=== PATIENT | female | born 1995 | race Caucasian/White ===

== ENCOUNTER 2020-10-27 13:59 | Outpatient (REF) | payer OTHER, SELFPAY ==
--- NOTE | 2020-10-27 14:08 | XR_ITS ---
EXAMINATION: BILATERAL SHOULDER AND LEFT SCAPULA X-RAYS CLINICAL INFORMATION: Bilateral shoulder pain COMPARISON: None TECHNIQUE: 4 views of the left shoulder and scapula and 4 views of the right shoulder FINDINGS: Left shoulder and scapula: Bone alignment is normal. No fracture or dislocation is seen. The joint spaces are normal. Soft tissues are normal. Right shoulder: Bone alignment is normal. No fracture or dislocation is seen. The joint spaces are normal. Soft tissues are normal. XR/XR shoulder LT min 2V IMPRESSION: Normal bilateral shoulder and left scapula exam.
--- NOTE | 2020-10-27 14:08 | XR_ITS ---
EXAMINATION: BILATERAL SHOULDER AND LEFT SCAPULA X-RAYS CLINICAL INFORMATION: Bilateral shoulder pain COMPARISON: None TECHNIQUE: 4 views of the left shoulder and scapula and 4 views of the right shoulder FINDINGS: Left shoulder and scapula: Bone alignment is normal. No fracture or dislocation is seen. The joint spaces are normal. Soft tissues are normal. Right shoulder: Bone alignment is normal. No fracture or dislocation is seen. The joint spaces are normal. Soft tissues are normal. XR/XR shoulder RT min 2V IMPRESSION: Normal bilateral shoulder and left scapula exam.
--- NOTE | 2020-10-27 14:08 | XR_ITS ---
EXAMINATION: BILATERAL SHOULDER AND LEFT SCAPULA X-RAYS CLINICAL INFORMATION: Bilateral shoulder pain COMPARISON: None TECHNIQUE: 4 views of the left shoulder and scapula and 4 views of the right shoulder FINDINGS: Left shoulder and scapula: Bone alignment is normal. No fracture or dislocation is seen. The joint spaces are normal. Soft tissues are normal. Right shoulder: Bone alignment is normal. No fracture or dislocation is seen. The joint spaces are normal. Soft tissues are normal. XR/XR scapula LT IMPRESSION: Normal bilateral shoulder and left scapula exam.
== END 2020-10-27 14:00 | disposition home or self-care (01) ==
LOC: HO.XRAY 13:59
PROVIDERS: Absent Provider Nurse Practitioner Family; PCP Internal Medicine; Visit Provider Internal Medicine
DX: M89.8X1 Other specified disorders of bone, shoulder (principal); M25.512 Pain in left shoulder; M25.511 Pain in right shoulder
CPT/HCPCS: 73010; 73030

== ENCOUNTER 2020-11-03 09:53 | Outpatient (REF) | payer OTHER, SELFPAY ==
[2020-11-03 10:35] LABS: MANUAL DIFF FLAG NO
[2020-11-03 10:38] LABS: Basophils Percent Auto 0.6 % (0-2); Eosinophils Absolute Auto 0.2 X10*3/uL (0.0-0.4); Hematocrit 38.4 % (37-47); Hemoglobin 13.1 g/dl (12.0-16.0); Imm Gran Abs Auto 0.02 X10*3/uL (0.00-0.03); Imm Gran Pct Auto 0.4 % (0.0-0.4); Lymphocytes Percent Auto 38.2 % (20-40); Mean Corpuscular HGB Conc 34.1 g/dl (31.0-35.0); Mean Corpuscular Hemoglobin 30.3 pg (27.0-33.0); Mean Corpuscular Volume 88.9 fL (80-98); Mean Platelet Volume 9.4 fL (9.4-12.3); Monocytes Absolute Auto 0.5 X10*3/uL (0.1-1.2); Monocytes Percent Auto 8.6 % (2-11); Neutrophils Absolute Auto 2.6 X10*3/uL (2.0-8.3); Neutrophils Percent Auto 49.2 % (45-73); Platelet Count 307 X10*3/uL (160-400); Red Blood Count 4.32 X10*6/uL (4.20-5.50); Red Cell Distribution Width 12.2 % (11.0-16.0); White Blood Count 5.3 X10*3/uL (4.8-10.8)
[2020-11-03 11:08] LABS: Anion Gap 11 (12-20); Blood Urea Nitrogen 14 mg/dL (9-16); Calcium 8.8 mg/dL (8.4-10.2); Carbon Dioxide 27 mmol/L (22-29); Chloride 104 mmol/L (96-108); Estimated Glomerular Filt Rate > 60; Glucose Fasting 93 mg/dL (60-99); Potassium 4.1 mmol/L (3.3-5.1); Rheumatoid Factor < 15.0 IU/mL (<15.0); Sodium 138 mmol/L (135-145)
== END 2020-11-03 09:54 | disposition home or self-care (01) ==
LOC: HO.LAB 09:53
PROVIDERS: Visit Provider Nurse Practitioner Family
DX: M25.511 Pain in right shoulder (principal)
CPT/HCPCS: 36415; 80048; 85025; 86431

== ENCOUNTER 2020-11-10 15:06 | Emergency (ER) | payer OTHER, SELFPAY | END 2020-11-10 21:34 | disposition left against medical advice (07) | PROVIDERS: Emergency Provider Emergency Medicine; PCP Internal Medicine | DX: R42 Dizziness and giddiness (principal) ==

== ENCOUNTER → 2020-11-12 12:40 | Outpatient (BNVA) | payer OTHER, SELFPAY | PROVIDERS: PCP Internal Medicine; Visit Provider Physician Assistant | DX: M75.51 Bursitis of right shoulder (principal) | CPT/HCPCS: 99202 ==

== ENCOUNTER 2020-11-13 23:00 | Emergency (ER) | payer OTHER, SELFPAY ==
[2020-11-14 01:03] VITALS: BP 129/80; PULSE 90; RESP 16; TEMP 36.7; O2SAT 100; BMI 38.2
[2020-11-14 01:07] VITALS: BP 125/68; PULSE 70
[2020-11-14 01:08] VITALS: BP 129/80; BP 129/83; PULSE 78; PULSE 97
--- NOTE | 2020-11-14 01:17 | ECG_ITS ---
Test Reason : DIZZINESS Blood Pressure : / mmHG Vent. Rate : 069 BPM Atrial Rate : 069 BPM P-R Int : 154 ms QRS Dur : 094 ms QT Int : 390 ms P-R-T Axes : 034 064 046 degrees QTc Int : 417 ms Normal sinus rhythm Incomplete right bundle branch block Borderline ECG When compared with ECG of 16-AUG-2019 19:06, No significant change was found Referred By: Toña Torres Electronically Signed By:Lazarus Rico
[2020-11-14 01:20] VITALS: BP 123/80; PULSE 70
--- NOTE | 2020-11-14 01:26 | ED_ITS ---
HPI - General Adult General Chief complaint: Dizziness Stated complaint: dizzyness Time Seen by Provider: 11/14/20 01:08 Source: patient Mode of arrival: ambulatory Limitations: no limitations History of Present Illness HPI narrative: Patient comes to emergency room complaining of dizziness. Patient states it has been constant for the last 2 weeks. When asked what dizziness means to the patient, she states that she is unable to explain. Patient denies lightheadedness, denies loss of balance, denies headache, denies feeling faint, denies unsteadiness, no weakness, no palpitations, no shortness of breath. Patient states that this moment she feels dizzy, but again states that she is unable to explain what she means. Patient was able to walk to her room unassisted with steady balance Related Data Home Medications Medication Instructions Recorded Confirmed albuterol sulfate mg INHALATION PRN 09/30/20 albuterol sulfate 90 mcg/actuation INHALATION 09/30/20 aerosol inhaler Previous Rx's Medication Instructions Recorded cyclobenzaprine 10 mg tablet 10 mg PO BEDTIME 30 Days #30 tab 09/30/20 ibuprofen 800 mg tablet 800 mg PO Q8H PRN 15 Days #30 tab 09/30/20 lidocaine 5 % topical patch 1 patch TOPICAL DAILY 7 Days #1 ea 09/30/20 omeprazole 20 mg capsule,delayed 20 mg PO DAILY 30 Days #30 cap 09/30/20 release triamcinolone acetonide 0.5 % 1 appl TOPICAL DAILY 30 Days #15 g 09/30/20 topical cream meclizine 25 mg tablet 25 mg PO BID PRN 30 Days #60 tab 10/27/20 meclizine 25 mg PO TID PRN #14 tab 11/14/20 Allergies Allergy/AdvReac Type Severity Reaction Status Date / Time No Known Allergies Allergy Verified 11/12/20 12:47 Review of Systems Review of Systems: Constitutional : No Weight loss, No Fever, No Chills, No Night Sweats, No Fatigue, No Malaise ENT/Mouth : No Hearing loss, No Ear Pain, No Nasal Congestion, No Sinus Pain, No Hoarseness, No sore throat, No Rhinorrhea, No Swallowing Difficulty Eyes: No Eye Pain, No Swelling, No Redness, No Foreign Body, No Discharge, No Vision Changes Cardiovascular : No Chest Pain, No SOB, No Dyspnea on Exertion, No Orthopnea, No Edema, No Palpitations Respiratory : No Cough, No Sputum, No Wheezing, No Smoke Exposure, No Dyspnea Gastrointestinal : No Nausea, No Vomiting, No Diarrhea, No Constipation, No abdominal Pain, No Hematochezia, No Melena Genitourinary : no irregular bleeding, No Dysuria, No Urinary Frequency, No Hematuria, No Urinary Incontinence, No Urgency, No Flank Pain, No Urinary Flow Changes, No Hesitancy Musculoskeletal : No joint pain, No Myalgias, No Joint Swelling Skin : No Skin Lesions, No rash Neuro : No Weakness, No Numbness, No Paresthesias, No Loss of Consciousness, c omplaining of Dizziness, No Headache Psych : No Anxiety/Panic, No Depression, No SI/HI/AH/VH, No Social Issues, Heme/Lymph: No Bruising, No Bleeding,No Lymphadenopathy Endocrine : No Polyuria, No Polydipsia, No Temperature Intolerance [facility] Past Medical History Medical History Left shoulder pain Pain of left scapula Shoulder pain, right Surgical History History of laparoscopic cholecystectomy History of tonsillectomy Family History Family History Father No problems noted. Mother No problems noted. Paternal Grandmother Chronic mental illness Maternal Grandmother Diabetes Hypertension Family/Other FH: mental illness Social History Social History (Updated 11/12/20 @ 12:54 by ASHLEY Baird) Alcohol intake: current Alcohol intake frequency: holidays/special occasions only Alcohol type: beer Smoking Status: Never smoker Tobacco Type: Cigar and Cigarette Use of substances other than those prescribed or required for medical reasons: No Advance Directives: No Advance Directives Information Provided: No Current occupational status: employed Current occupation: [employer]. Physical Exam Vital Signs: Vital Signs: Last Vital Signs Temp 97.8 F 11/14/20 02:54 Pulse 73 11/14/20 02:54 Resp 18 11/14/20 02:54 BP 119/65 11/14/20 02:54 Pulse Ox 100 11/14/20 02:54 Body Mass Index 38.2 Appearance: Alert. Oriented X3. No acute distress. Eyes: Pupils equal, round and reactive to light. ENT: Pharynx normal. Neck: Normal inspection. Neck supple. No lymph nodes noted. No crepitus CVS: Normal heart rate and rhythm. Pulses normal. Normal S1 and S2 Respiratory: No respiratory distress. Breath sounds normal. No Wheezing. No rales Abdomen: Soft and nontender. No rigidity. No distention. good BS x4 Skin: Skin warm and dry. Normal skin color. Normal skin turgor. Extremities: No lower extremity edema. No lower extremity edema. No Lacerations. No Rash Neuro: Oriented X 3. No motor deficit. No sensory deficit. Moving all extermities. No slurred speech. Medical Decision Making Lab Data Result diagrams: 11/14/20 02:00 11/14/20 02:00 Labs: Lab Results 11/14/20 11/14/20 11/14/20 Range/Units 02:00 02:00 02:00 WBC 6.1 (4.8-10.8) X10*3/uL RBC 4.27 (4.20-5.50) X10*6/uL Hgb 13.0 (12.0-16.0) g/dl Hct 38.4 (37-47) % MCV 89.9 (80-98) fL MCH 30.4 (27.0-33.0) pg MCHC 33.9 (31.0-35.0) g/dl RDW 12.1 (11.0-16.0) % Plt Count 281 (160-400) X10*3/uL MPV 9.5 (9.4-12.3) fL Immature Gran % (Auto) 0.3 (0.0-0.4) % Neut % (Auto) 51.4 (45-73) % Lymph % (Auto) 37.8 (20-40) % [place] % (Auto) 8.2 (2-11) % Eos % (Auto) 1.6 (0-4) % Baso % (Auto) 0.7 (0-2) % Lymph # (Auto) 2.3 (1.2-4.9) X10*3/uL [place] # (Auto) 0.5 (0.1-1.2) X10*3/uL Eos # (Auto) 0.1 (0.0-0.4) X10*3/uL Baso # (Auto) 0.0 (0.0-0.2) X10*3/uL Abs Immat Gran (auto) 0.02 (0.00-0.03) X10*3/uL Absolute Neuts (auto) 3.2 (2.0-8.3) X10*3/uL Absolute Nucleated RBC 0.000 (0.0-0.012) X10*3/uL Nucleated RBC % (auto) 0.0 (0.0-0.2) /100WBC Sodium 139 (135-145) mmol/L Potassium 4.2 (3.3-5.1) mmol/L Chloride 105 (96-108) mmol/L Carbon Dioxide 26 (22-29) mmol/L Anion Gap 12 (12-20) BUN 14 (9-16) mg/dL Creatinine 0.85 (0.5-1.4) mg/dL Estim Creat Clear Calc 123.4 Estimated GFR > 60 Random Glucose 99 (60-115) mg/dL Calcium 9.0 (8.4-10.2) mg/dL Total Bilirubin 0.3 (0.0-1.0) mg/dL Direct Bilirubin < 0.2 (0.0-0.5) mg/dL AST 15 (5-31) U/L ALT 11 (0-31) U/L Alkaline Phosphatase 77 (39-117) U/L Troponin I High Sens < 3.5 (<3.5-17.0) ng/L Total Protein 7.0 (6.5-8.0) g/dL Albumin 4.1 (3.5-5.0) g/dL Urine Color Urine Appearance Urine pH (5.0-8.0) Ur Specific [place] (1.005-1.025) Urine Protein (NEG-TRACE) MG/DL Urine Glucose (UA) (NEG) MG/DL Urine Ketones (NEG) MG/DL Urine Blood (NEG) Urine Nitrite (NEG) Ur Leukocyte Esterase (NEG) Urine RBC (0) /HPF Urine WBC (0-4) /HPF Ur Squamous Epith Cells /LPF Urine Bacteria /LPF Urine Mucus /LPF Urine Test (NEGATIVE) Urine Opiates Screen (Not Detect) Ur Barbiturates Screen (Not Detect) Ur Phencyclidine Scrn (Not Detect) Ur Amphetamines Screen (Not Detect) U Benzodiazepines Scrn (Not Detect) Urine Cocaine Screen (Not Detect) U Marijuana (THC) Screen (Not Detect) 11/14/20 11/14/20 11/14/20 Range/Units 02:31 02:31 02:31 WBC (4.8-10.8) X10*3/uL RBC (4.20-5.50) X10*6/uL Hgb (12.0-16.0) g/dl Hct (37-47) % MCV (80-98) fL MCH (27.0-33.0) pg MCHC (31.0-35.0) g/dl RDW (11.0-16.0) % Plt Count (160-400) X10*3/uL MPV (9.4-12.3) fL Immature Gran % (Auto) (0.0-0.4) % Neut % (Auto) (45-73) % Lymph % (Auto) (20-40) % [place] % (Auto) (2-11) % Eos % (Auto) (0-4) % Baso % (Auto) (0-2) % Lymph # (Auto) (1.2-4.9) X10*3/uL [place] # (Auto) (0.1-1.2) X10*3/uL Eos # (Auto) (0.0-0.4) X10*3/uL Baso # (Auto) (0.0-0.2) X10*3/uL Abs Immat Gran (auto) (0.00-0.03) X10*3/uL Absolute Neuts (auto) (2.0-8.3) X10*3/uL Absolute Nucleated RBC (0.0-0.012) X10*3/uL Nucleated RBC % (auto) (0.0-0.2) /100WBC Sodium (135-145) mmol/L Potassium (3.3-5.1) mmol/L Chloride (96-108) mmol/L Carbon Dioxide (22-29) mmol/L Anion Gap (12-20) BUN (9-16) mg/dL Creatinine (0.5-1.4) mg/dL Estim Creat Clear Calc Estimated GFR Random Glucose (60-115) mg/dL Calcium (8.4-10.2) mg/dL Total Bilirubin (0.0-1.0) mg/dL Direct Bilirubin (0.0-0.5) mg/dL AST (5-31) U/L ALT (0-31) U/L Alkaline Phosphatase (39-117) U/L Troponin I High Sens (<3.5-17.0) ng/L Total Protein (6.5-8.0) g/dL Albumin (3.5-5.0) g/dL Urine Color YELLOW Urine Appearance CLEAR Urine pH 7.0 (5.0-8.0) Ur Specific [place] 1.025 (1.005-1.025) Urine Protein NEG (NEG-TRACE) MG/DL Urine Glucose (UA) NEG (NEG) MG/DL Urine Ketones 5 (NEG) MG/DL Urine Blood TRACE (NEG) Urine Nitrite NEG (NEG) Ur Leukocyte Esterase NEG (NEG) Urine RBC 1-4 (0) /HPF Urine WBC 1-4 (0-4) /HPF Ur Squamous Epith Cells 1+ /LPF Urine Bacteria 1+ /LPF Urine Mucus 1+ /LPF Urine Test NEGATIVE (NEGATIVE) Urine Opiates Screen Not Detected (Not Detect) Ur Barbiturates Screen Not Detected (Not Detect) Ur Phencyclidine Scrn Not Detected (Not Detect) Ur Amphetamines Screen Not Detected (Not Detect) U Benzodiazepines Scrn Not Detected (Not Detect) Urine Cocaine Screen Not Detected (Not Detect) U Marijuana (THC) Screen Not Detected (Not Detect) ECG Data Attestation: I personally reviewed and interpreted this ECG as follows: (Sinus rhythm, heart rate 69, incomplete right bundle branch block, QTC 417, no ST segment depression or elevations, no T-wave inversions) Discharge Plan Discharge Clinical Impression: Dizziness Patient Disposition: Home, Self-Care Instructions: Dizziness (ED) Additional Instructions: Please follow-up with your primary care physician tomorrow. If you have any worsening or new symptoms, please return to the emergency room or call 911 Prescriptions: New meclizine 25 mg tablet 25 mg PO TID PRN (Reason: dizziness) Qty: 14 RF: 0 No Action meclizine 25 mg tablet 25 mg PO BID PRN (Reason: dizziness) 30 Days Qty: 60 RF: 0 albuterol sulfate 2.5 mg /3 mL (0.083 %) solution for nebulization inhalation PRNRF: 0 albuterol sulfate 90 mcg/actuation HFA aerosol inhaler inhalation RF: 0 ibuprofen 800 mg tablet 800 mg PO Q8H PRN (Reason: pain) 15 Days Qty: 30 RF: 0 cyclobenzaprine 10 mg tablet 10 mg PO BEDTIME 30 Days Qty: 30 RF: 0 lidocaine 5 % adhesive patch,medicated 1 patch topical DAILY 7 Days Qty: 1 RF: 0 triamcinolone acetonide 0.5 % cream 1 appl topical DAILY 30 Days Qty: 15 RF: 0 omeprazole 20 mg capsule,delayed release(DR/EC) 20 mg PO DAILY 30 Days Qty: 30 RF: 0 Interventions: ED Discharge Assessment Last Done: 11/14/20 03:00 Discharge Date/Time: 11/14/20 03:01
[2020-11-14 01:45] VITALS: BP 119/75; PULSE 68; RESP 18; TEMP 36.5; O2SAT 100
[2020-11-14] MEDS: Meclizine HCl 25 MG TABLET 50 MG PO (01:53)
[2020-11-14 02:12] LABS: Basophils Percent Auto 0.7 % (0-2); Eosinophils Absolute Auto 0.1 X10*3/uL (0.0-0.4); Eosinophils Percent Auto 1.6 % (0-4); Hematocrit 38.4 % (37-47); Imm Gran Abs Auto 0.02 X10*3/uL (0.00-0.03); Imm Gran Pct Auto 0.3 % (0.0-0.4); Lymphocytes Absolute Auto 2.3 X10*3/uL (1.2-4.9); Lymphocytes Percent Auto 37.8 % (20-40); MANUAL DIFF FLAG NO; Mean Corpuscular HGB Conc 33.9 g/dl (31.0-35.0); Mean Corpuscular Hemoglobin 30.4 pg (27.0-33.0); Mean Corpuscular Volume 89.9 fL (80-98); Mean Platelet Volume 9.5 fL (9.4-12.3); Monocytes Absolute Auto 0.5 X10*3/uL (0.1-1.2); Monocytes Percent Auto 8.2 % (2-11); Neutrophils Absolute Auto 3.2 X10*3/uL (2.0-8.3); Neutrophils Percent Auto 51.4 % (45-73); Platelet Count 281 X10*3/uL (160-400); Red Blood Count 4.27 X10*6/uL (4.20-5.50); Red Cell Distribution Width 12.1 % (11.0-16.0); White Blood Count 6.1 X10*3/uL (4.8-10.8)
[2020-11-14 02:37] LABS: Glucose Urine UA NEG (NEG); Leukocyte Esterase Urine NEG (NEG); Nitrite Urine NEG (NEG); Specific Gravity - Urine 1.025 (1.005-1.025); Urine Blood TRACE (NEG); Urine Ketones 5 MG/DL (NEG); Urine Protein NEG (NEG-TRACE)
[2020-11-14 02:38] LABS: Alanine Aminotransferase 11 U/L (0-31); Albumin Level 4.1 g/dL (3.5-5.0); Alkaline Phosphatase 77 U/L (39-117); Anion Gap 12 (12-20); Aspartate Amino Transferase 15 U/L (5-31); Bilirubin Direct < 0.2 mg/dL (0.0-0.5); Bilirubin Total 0.3 mg/dL (0.0-1.0); Blood Urea Nitrogen 14 mg/dL (9-16); Carbon Dioxide 26 mmol/L (22-29); Chloride 105 mmol/L (96-108); Creatinine Clr Calc Pharmacy 123.4; Estimated Glomerular Filt Rate > 60; Glucose Random 99 mg/dL (60-115); Potassium 4.2 mmol/L (3.3-5.1); Sodium 139 mmol/L (135-145)
[2020-11-14 02:39] LABS: Appearance Urine CLEAR; Color Urine YELLOW; UPreg QC Valid YES; Urine Pregnancy NEGATIVE (NEGATIVE)
[2020-11-14 02:42] LABS: Bacteria Urine 1+ /LPF; Squamous Epithelial Cell Urine 1+ /LPF
[2020-11-14 02:43] LABS: Mucus Urine 1+ /LPF
[2020-11-14 02:44] LABS: Troponin-I High Sensitivity < 3.5 ng/L (<3.5-17.0)
[2020-11-14 02:54] VITALS: BP 119/65; PULSE 73; RESP 18; TEMP 36.6; O2SAT 100
[2020-11-14 03:00] LABS: Amphetamine Screen Urine Not Detected (Not Detect); Barbiturates, Urine Not Detected (Not Detect); Benzodiazepines Screen Urine Not Detected (Not Detect); Cannabinoid Screen Urine Not Detected (Not Detect); Cocaine Screen Urine Not Detected (Not Detect); Opiate Screen Urine Not Detected (Not Detect); Phencyclidine Screen Urine Not Detected (Not Detect)
== END 2020-11-14 03:01 | disposition home or self-care (01) ==
PROVIDERS: Emergency Provider Emergency Medicine; PCP Internal Medicine
DX: R42 Dizziness and giddiness (principal); F17.210 Nicotine dependence, cigarettes, uncomplicated; Z71.6 Tobacco abuse counseling; Z79.899 Other long term (current) drug therapy
CPT/HCPCS: 36415; 80048; 80076; 80307; 81001; 81025; 84484; 85025; 93005; 99283; 99285

== ENCOUNTER → 2020-11-18 12:42 | Outpatient (REF) | payer OTHER, SELFPAY ==
--- NOTE | 2020-11-18 12:46 | CA_ITS ---
Transthoracic Echocardiogram Patient (Last, First, Middle): Sonya Sam M Gender: Female Date of : 1995 Age: 25 Procedure Date: 11/18/2020 Procedure Type: Transthoracic Echocardiogram Location: OP Height: 167.64 cm Weight: 107.96 kg BSA: 2.15 m2 Heart Rate: bpm BP: 121 / 73 mmHg [employer] Instrument Repairer: TRN Referring MD: Helen Hernandez MD Assembler Motor Vehicle: Harmeet Atkinson MD Symptoms: R06.02 - Shortness of breath Study Quality: Fair ECG Rhythm: Sinus Conclusions: - Essentially normal study Findings Left Ventricle Normal left ventricular size, thickness, and systolic function. The visually estimated ejection fraction is between 60-65%. Diastolic function is normal for age. Right Ventricle Normal right ventricular cavity size and systolic function. Atria Both atria are normal in size. Interatrial shunt cannot be excluded. Aortic Valve Normal aortic valve structure and function. There is no aortic valve stenosis. There is no aortic valve regurgitation. Mitral Valve Normal mitral valve structure and function. There is trace mitral valve regurgitation. There is no mitral valve stenosis. Pulmonic Valve The pulmonic valve was not well visualized. Tricuspid Valve Likely normal tricuspid valve structure and function. There is trace tricuspid valve regurgitation. The right ventricular systolic pressure is normal. The right ventricular systolic pressure is 16 mmHg. Normal right atrial pressure. There is no evidence of pulmonary hypertension. Great Vessels All visible segments of the aorta are normal in size. Venous The inferior vena cava is normal in size and collapses greater than 50% with inspiration. Pericardium/Pleural There is no evidence of pericardial effusion. Prior Study Comparison No prior study available for comparison. Measurements M-Mode Liner Measurements Normals - Women/Men AOV Cusps: 2.10 1.5-2.6 cm/m2 2D Linear Measurements IVSd: 0.92 0.6-0.9/0.6-1.0 cm LVIDd: 4.15 3.9-5.3/4.2-5.9 cm LVIDd Index: 1.93 2.4-3.2/2.2-3.1 cm/m2 LVIDs: 2.83 2.0-3.6 cm LVPWd: 0.93 0.7-1.1 cm Ao Root: 2.90 2.1-3.5 cm LA Diam: 3.70 2.7-3.8/3.0-4.0 cm LAIDs Index: 1.72 1.5-2.3 cm/m2 LV Mass: 150.20 67-162/88-224 g LV Mass Index: 69.86 43-95/49-115 g/m2 LVOT Diam: 2.20 3.0+(-)1.3 cm 2D Systolic Function EF 4C: 65.10 >55% EF 2C: 57.40 >55% EF BiP: 60.80 >55% Mitral Valve MV Pk E: 0.73 MV PK A: 0.48 MV Decel Time: 211.00 E/A: 1.50 E'Lateral: 16.30 E'Medial: 9.68 E/E' Med: 7.60 E/E' Lat: 4.50 PHT: 62.00 MVA PHT: 3.55 Decel [place]: 3.47 Aortic Valve AoV Pk Emigdio: 1.30 AoV Pk Grad: 7.00 LVOT LVOT Pk Emigdio: 0.94 LVOT Mn Emigdio: 0.60 LVOT VTI: 0.17 LVOT Pk Grad: 4.00 LVOT Mn Grad: 2.00 LVOT Diam: 2.20 LVOT Area: 3.80 Diastolic Function MV Pk E: 0.73 MV Pk A: 0.48 E/A: 1.50 E'Medial: 9.68 E/E' Med: 7.60 E' Laterial: 16.30 E/E' Lat: 4.50 Tricuspid Valve TR Pk Emigdio: 1.79 TR Pk Grad: 13.00 RA Press: 3.00 RVSP: 16.00 Great Vessels Aorta Ao Root-2D: 2.90 2.0-3.7 cm Ao Asc: 2.80 2.1-3.4 cm Ao Arch: 2.40 Pulmonary Valve PV Pk Emigdio: 0.94 Peak PV Grad: 4.00 Updated in Other Vendor System with Status of Final Harmeet Atkinson MD electronically signed on 11/19/2020 5:19:39 PM with status of Final
== END ==
LOC: HO.CARD 12:42
PROVIDERS: PCP Internal Medicine; Visit Provider Internal Medicine
DX: R06.02 Shortness of breath (principal)
CPT/HCPCS: 93306

== ENCOUNTER → 2020-12-09 13:40 | Outpatient (REF) | payer OTHER, SELFPAY ==
--- NOTE | 2020-12-09 13:19 | ECG_ITS ---
Hook-up date: 2020-12-09 13:58:00 Duration: 24:23:00 Test Indications: R53.83 OTHER FATIGUE Medications: 192033 QRS complexes 1 Ventricular ectopics which represent <1 % of total QRS comp. 1 Supraventricular ectopics which represent <1 % of total QRS comp. * Paced QRS complexs which represent % of total QRS comp. VENTRICULAR ECTOPY 1 Isolated 0 Bigeminal Cycles 0 Couplets 0 Runs 0 Beats in Runs * Beats LONGEST at * BPM at :: -- * Beats FASTEST at * BPM at :: -- SUPRAVENTRICULAR ECTOPY 1 Isolated 0 Couplets 0 Runs 0 Beats in Runs * Beats LONGEST at * BPM at :: -- * Beats FASTEST at * BPM at :: -- HEART RATES 51 MIN at 10:09:23 2020-12-10 81 AVG 146 MAX at 21:24:24 2020-12-09 LONGEST RR 1.3280 secs at 10:09:17 2020-12-10 S-T LEVELS Channel 1 - 128 mm at 13:58:00 2020-12-09 - 128 mm at 13:58:00 2020-12-09 Channel 2 - 128 mm at 13:58:00 2020-12-09 - 128 mm at 13:58:00 2020-12-09 Channel 3 - 128 mm at 03:31:71 -- - 128 mm at 03:31:71 Underlying rhythm is sinus; Average ventricular rate 81/min; No significant ectopy, tachy or bradyarrhythmias; Dizziness, chest pain, difficulty breathing in patient diary associated with sinus rhythm. Referred By: Helen Hernandez Overread By: ALEXANDER LOMAX
== END ==
LOC: HO.CARD 13:40
PROVIDERS: PCP Internal Medicine; Visit Provider Internal Medicine
DX: R53.83 Other fatigue (principal)
CPT/HCPCS: 93226

== ENCOUNTER 2020-12-20 14:00 | Outpatient (RCR) | payer OTHER, SELFPAY ==
--- NOTE | 2021-01-03 14:39 | MHC.PT.DC ---
[facility] [place] Office [place] Office [place] Office [address] Stephani Toure [address] [phone] F: [phone] F: [phone] F: [phone] F: [phone] Physical Therapy Discharge Report Diagnosis: right shoulder bursitis Date of Surgery: Date of Evaluation: 11/24/20 Date of Discharge: 01/03/21 Treatments to Date: 4 Cancellations to Date: 1 No Shows to Date: 2 Discharge Status: Patient Elected to Stop Visit Non-compliance Discharge Summary: Pt was seen for 4 visits since her IE on 11/24/20 due to multiple cancellations/no shows. She is being discharged due to non compliance with the attendance policy. Electronically signed by: Shruti De Jesus PT, DPT Please sign and return to therapist. Thank you for your referral.
== END 2021-01-03 14:39 | disposition other institution (70) ==
LOC: HO.PT 14:00
PROVIDERS: PCP Internal Medicine; Visit Provider Physician Assistant
DX: M75.51 Bursitis of right shoulder (principal)
CPT/HCPCS: 97110; 97140; 97161

== ENCOUNTER → 2020-12-23 14:10 | Outpatient (BNVA) | payer OTHER, SELFPAY | PROVIDERS: Visit Provider Physician Assistant | DX: Z13.89 Encounter for screening for other disorder (principal) | CPT/HCPCS: 99212 ==

== ENCOUNTER 2021-03-16 18:43 | Emergency (ER) | payer OTHER, SELFPAY ==
--- NOTE | ~2021-03-16 | CT_ITS ---
EXAMINATION: CT ABDOMEN AND PELVIS WITH CONTRAST CLINICAL INFORMATION: Right lower quadrant pain with question of appendicitis COMPARISON: CT abdomen pelvis 03/23/2020 TECHNIQUE: Multidetector volumetric images were obtained from the superior aspect of the liver through the pubic symphysis following administration 85 mL of Omnipaque 350 intravenous contrast. Sagittal and coronal reformatted images were obtained on the technologist's workstation. Oral contrast: No This CT examination was performed using dose optimization techniques as appropriate, variously including the following: *Automated exposure control *Adjustment of mA and/or kV according to patient size (this includes techniques or standardized protocols for targeted exams where dose is matched to indication/reason for exam; i.e. extremities or head) *Use of iterative reconstruction technique DLP: 884 mGy-cm FINDINGS: LUNG BASES: The visualized lung bases are unremarkable. LIVER, GALLBLADDER, AND BILIARY TREE: The liver is normal in size, shape, and attenuation. No focal hepatic lesion or biliary ductal dilatation is present. Status post cholecystectomy PANCREAS: Unremarkable. SPLEEN: Unremarkable. ADRENAL GLANDS: Unremarkable. KIDNEYS AND URETERS: The kidneys are normal in size, shape, and attenuation. Benign small 0.9 cm left upper pole renal cyst present. No hydronephrosis, hydroureter, or calculi seen. No perinephric stranding. BLADDER: Empty but unremarkable GASTROINTESTINAL TRACT: The small and large bowel are unremarkable. The appendix is unremarkable. There is no evidence of appendicitis. No appendicoliths are seen. ABDOMINAL WALL: No significant hernia is appreciated. LYMPH NODES: No retroperitoneal lymphadenopathy. Small bilateral inguinal nodes are present. VASCULAR: Unremarkable. PELVIC VISCERA: An anteverted uterus is present. An abnormal adnexal mass is not seen. The right ovary measures 3.4 x 1.9 x 2.5 cm and may contain some cysts. The left ovary measures 3.2 x 1.5 x 2.1 cm and appears unremarkable. Small amount of free fluid is present in the cul-de-sac. OSSEOUS STRUCTURES: Unremarkable. CT/CT abdomen pelvis w con IMPRESSION: 1. Essentially negative exam. 2. No evidence of appendicitis. 3. Small amount of free intraperitoneal fluid is present in the pelvis with some probable right ovarian cysts. Perhaps a of the patient's pain could've been a ruptured ovarian cyst?
[2021-03-16 19:29] VITALS: BP 119/69; PULSE 92; RESP 18; TEMP 36.8; O2SAT 100; BMI 40.1
[2021-03-16 21:46] VITALS: BP 104/63; PULSE 79; RESP 16; TEMP 36.7; O2SAT 99
[2021-03-16 22:49] LABS: Basophils Percent Auto 0.4 % (0-2); Eosinophils Percent Auto 0.6 % (0-4); Hematocrit 38.7 % (37-47); Hemoglobin 13.1 g/dl (12.0-16.0); Imm Gran Abs Auto 0.01 X10*3/uL (0.00-0.03); Imm Gran Pct Auto 0.1 % (0.0-0.4); Lymphocytes Absolute Auto 2.2 X10*3/uL (1.2-4.9); Lymphocytes Percent Auto 30.3 % (20-40); MANUAL DIFF FLAG NO; Mean Corpuscular HGB Conc 33.9 g/dl (31.0-35.0); Mean Corpuscular Hemoglobin 30.6 pg (27.0-33.0); Mean Corpuscular Volume 90.4 fL (80-98); Mean Platelet Volume 9.1 fL (9.4-12.3); Monocytes Absolute Auto 0.5 X10*3/uL (0.1-1.2); Monocytes Percent Auto 6.2 % (2-11); Neutrophils Absolute Auto 4.5 X10*3/uL (2.0-8.3); Neutrophils Percent Auto 62.4 % (45-73); Platelet Count 279 X10*3/uL (160-400); Red Blood Count 4.28 X10*6/uL (4.20-5.50); Red Cell Distribution Width 12.2 % (11.0-16.0); White Blood Count 7.3 X10*3/uL (4.8-10.8)
[2021-03-16 22:50] LABS: Appearance Urine CLEAR; Color Urine YELLOW; Glucose Urine UA NEG (NEG); Leukocyte Esterase Urine NEG (NEG); Nitrite Urine NEG (NEG); PH 5.5 (5.0-8.0); Specific Gravity - Urine >= 1.030 (1.005-1.025); Urine Blood 1+ (NEG); Urine Ketones NEG (NEG); Urine Protein NEG (NEG-TRACE)
[2021-03-16 22:51] LABS: UPreg QC Valid YES; Urine Pregnancy NEGATIVE (NEGATIVE)
[2021-03-16 23:02] LABS: Bacteria Urine 1+ /LPF; Mucus Urine 1+ /LPF; RBC Urine 0-2 /HPF (0); Squamous Epithelial Cell Urine 1+ /LPF; WBC Urine 0 /HPF (0-4)
[2021-03-16] MEDS: ondansetron HCL 4 MG/2 ML VIAL IVPUSH (23:05)
[2021-03-16 23:14] VITALS: RESP 16
[2021-03-16] MEDS: Morphine Sulfate 4 MG/ML CARTRIDGE IVPUSH (23:14)
[2021-03-16 23:28] LABS: Alanine Aminotransferase 12 U/L (0-31); Albumin Level 4.3 g/dL (3.5-5.0); Alkaline Phosphatase 92 U/L (39-117); Anion Gap 14 (12-20); Aspartate Amino Transferase 16 U/L (5-31); Bilirubin Direct < 0.2 mg/dL (0.0-0.5); Bilirubin Total 0.5 mg/dL (0.0-1.0); Blood Urea Nitrogen 11 mg/dL (9-16); Calcium 9.7 mg/dL (8.4-10.2); Carbon Dioxide 27 mmol/L (22-29); Chloride 103 mmol/L (96-108); Estimated Glomerular Filt Rate > 60; Glucose Random 94 mg/dL (60-115); Potassium 4.5 mmol/L (3.3-5.1); Sodium 139 mmol/L (135-145); Total Protein 7.3 g/dL (6.5-8.0)
[2021-03-16] MEDS: iohexoL 350 MG/ML 100 ML INFUS..BTL 85 ML IV (23:44)
--- NOTE | 2021-03-16 23:56 | ED.ABDPAIN ---
HPI - Abdominal Pain General Chief Complaint: Abdominal Pain Stated Complaint: abd pain Time Seen by Provider: 03/16/21 22:09 Source: patient Mode of arrival: ambulatory Limitations: no limitations History of Present Illness HPI narrative: 25-year-old female previously healthy status post cholecystectomy here with complaints of right-sided abdominal pain which radiates to the low back x1 week. Worsened with eating. Complaining of nausea and several episodes of diarrhea. No vomiting, fevers, chills, urinary symptoms. Last menstrual cycle 1 month ago. Related Data Home Medications Medication Instructions Recorded Confirmed albuterol sulfate mg INHALATION PRN 09/30/20 11/25/20 albuterol sulfate 90 mcg/actuation INHALATION 09/30/20 11/25/20 aerosol inhaler Previous Rx's Medication Instructions Recorded ibuprofen 800 mg tablet 800 mg PO Q8H PRN 15 Days #30 tab 09/30/20 lidocaine 5 % topical patch 1 patch TOPICAL DAILY 7 Days #1 ea 09/30/20 omeprazole 20 mg capsule,delayed 20 mg PO DAILY 30 Days #30 cap 09/30/20 release triamcinolone acetonide 0.5 % 1 appl TOPICAL DAILY 30 Days #15 g 09/30/20 topical cream meclizine 25 mg tablet 25 mg PO BID PRN 30 Days #60 tab 10/27/20 ibuprofen 600 mg PO Q8H PRN #20 tab 03/17/21 oxycodone 5 mg PO Q8H PRN #5 tab 03/17/21 Allergies Allergy/AdvReac Type Severity Reaction Status Date / Time No Known Allergies Allergy Verified 03/16/21 19:29 Review of Systems Review of Systems Yes all other systems are reviewed and are negative Constitutional: Reports no additional constitutional complaints, Denies body ache(s), Denies chills, Denies fever(s), Denies headache(s) and Denies weakness Eyes: Reports no additional eye complaints and Denies change in vision Reports system reviewed and no additional complaints, except as documented, Denies dizziness, Denies headache(s), Denies nasal congestion, Denies nasal discharge and Denies neck pain Cardiovascular: Reports no additional cardiovascular complaints, Denies chest pain, Denies leg edema and Denies dyspnea Respiratory: Reports no additional respiratory complaints, Denies cough and Denies dyspnea Gastrointestinal: Reports no additional gastrointestinal complaints, Reports abdominal pain, Reports diarrhea, Reports nausea and Denies vomiting Genitourinary: Reports no additional female genitourinary complaints and Denies urinary incontinence Musculoskeletal: Reports no additional musculoskeletal complaints, Denies back pain, Denies arthralgias, Denies joint swelling, Denies neck pain, Denies numbness and Denies tingling Skin/Breast: Reports system reviewed and no additional complaints, except as docu and Denies rash Reports system reviewed and no additional complaints, except as documented, Denies Abnormal speech present, Denies dizziness, Denies headache(s), Denies numbness, Denies tingling and Denies weakness Physical Exam Vital Signs: Vital Signs: Last Vital Signs Temp 98.0 F 03/16/21 21:46 Pulse 79 03/16/21 21:46 Resp 16 03/16/21 23:14 BP 104/63 03/16/21 21:46 Pulse Ox 99 03/16/21 21:46 Body Mass Index 40.1 Const: General: cooperative, healthy appearing, comfortable and no acute distress Orientation/consciousness: patient oriented x3 Limitations: no limitations HENMT: Head: Yes normal to inspection Ears: hearing grossly normal bilaterally General nose exam: Normal external nose present Face and sinus: Yes normal facial exam Mouth: Normal oral and palatal mucosa present Throat: Yes posterior oropharynx normal Eyes: General: appearance normal, both eyes and all related structures Pupils: Equal, round and reactive pupils present Neck: Neck: Yes normal visual inspection Chest: Chest palpation & inspection: normal inspection of the chest Resp: Effort & Inspection: normal respiratory effort Auscultation: clear to auscultation bilaterally Cardio: Rate: regular rate Rhythm: regular rhythm Peripheral pulses: Peripheral pulses 2+ throughout GI: Inspection: Yes normal to inspection Palpation (GI): Soft to palpation and Tenderness to palpation present (GI) (Tenderness around the periumbilical region and right lower quadrant) Auscultation: normal bowel sounds : General: Yes no CVA tenderness Back/Spine/Pelvis: Back: no CVA tenderness Thoracic/Lumbar Spine: thoracic and lumbar spine normal to inspection Skin: General skin exam: no rashes or lesions noted Neuro: General: patient oriented x3, no focal motor deficits and normal sensation to monofilament Cranial nerves: Yes Equal, round and reactive pupils present Cognition (Neuro): normal cognition Speech: No Abnormal speech present Gait exam (Neuro): Normal gait present Motor exam (neuro): 5/5 motor strength present throughout Extrem: General: Yes normal to inspection Course Course Course Narrative: 25-year-old female here with right-sided abdominal pain x1 week with radiation to the low back with associated nausea and several episodes of diarrhea. No vomiting, urinary symptoms or fever. On exam the patient has tenderness over the periumbilical area and in the right lower quadrant with no rebound or guarding. No CVA tenderness on exam. Hemodynamically stable. Will check labs, UA, ur preg and CT A/P. 1245-labs are unremarkable. UA negative. CT shows no evidence of appendicitis. Small amount of free fluid in the pelvis with question of right ovarian cyst. Patient is feeling improved. Abdomen exam is soft and nontender. Tolerating p.o.. Reviewed worrisome signs and symptoms with the patient when to return to the emergency department. Comfortable discharge home. MDM - Abdominal Pain Differential Diagnosis Differential diagnosis: Likely abdominal pain, acute appendicitis, calculus of kidney and gastroenteritis Medical Records Attestation: I reviewed the patient's medical records. Lab Data Attestation: I reviewed the patient's lab results. Result diagrams: 03/16/21 22:42 03/16/21 22:42 Labs: Lab Results 03/16/21 03/16/21 03/16/21 Range/Units 22:39 22:39 22:42 WBC 7.3 (4.8-10.8) X10*3/uL RBC 4.28 (4.20-5.50) X10*6/uL Hgb 13.1 (12.0-16.0) g/dl Hct 38.7 (37-47) % MCV 90.4 (80-98) fL MCH 30.6 (27.0-33.0) pg MCHC 33.9 (31.0-35.0) g/dl RDW 12.2 (11.0-16.0) % Plt Count 279 (160-400) X10*3/uL MPV 9.1 L (9.4-12.3) fL Immature Gran % (Auto) 0.1 (0.0-0.4) % Neut % (Auto) 62.4 (45-73) % Lymph % (Auto) 30.3 (20-40) % [place] % (Auto) 6.2 (2-11) % Eos % (Auto) 0.6 (0-4) % Baso % (Auto) 0.4 (0-2) % Lymph # (Auto) 2.2 (1.2-4.9) X10*3/uL [place] # (Auto) 0.5 (0.1-1.2) X10*3/uL Eos # (Auto) 0.0 (0.0-0.4) X10*3/uL Baso # (Auto) 0.0 (0.0-0.2) X10*3/uL Abs Immat Gran (auto) 0.01 (0.00-0.03) X10*3/uL Absolute Neuts (auto) 4.5 (2.0-8.3) X10*3/uL Absolute Nucleated RBC 0.000 (0.0-0.012) X10*3/uL Nucleated RBC % (auto) 0.0 (0.0-0.2) /100WBC Sodium (135-145) mmol/L Potassium (3.3-5.1) mmol/L Chloride (96-108) mmol/L Carbon Dioxide (22-29) mmol/L Anion Gap (12-20) BUN (9-16) mg/dL Creatinine (0.5-1.4) mg/dL Estim Creat Clear Calc Estimated GFR Random Glucose (60-115) mg/dL Calcium (8.4-10.2) mg/dL Total Bilirubin (0.0-1.0) mg/dL Direct Bilirubin (0.0-0.5) mg/dL AST (5-31) U/L ALT (0-31) U/L Alkaline Phosphatase (39-117) U/L Total Protein (6.5-8.0) g/dL Albumin (3.5-5.0) g/dL Urine Color YELLOW Urine Appearance CLEAR Urine pH 5.5 (5.0-8.0) Ur Specific [place] >= 1.030 H (1.005-1.025) Urine Protein NEG (NEG-TRACE) MG/DL Urine Glucose (UA) NEG (NEG) MG/DL Urine Ketones NEG (NEG) MG/DL Urine Blood 1+ H (NEG) Urine Nitrite NEG (NEG) Ur Leukocyte Esterase NEG (NEG) Urine RBC 0-2 (0) /HPF Urine WBC 0 (0-4) /HPF Ur Squamous Epith Cells 1+ /LPF Urine Bacteria 1+ /LPF Urine Mucus 1+ /LPF Urine Test NEGATIVE (NEGATIVE) 03/16/21 Range/Units 22:42 WBC (4.8-10.8) X10*3/uL RBC (4.20-5.50) X10*6/uL Hgb (12.0-16.0) g/dl Hct (37-47) % MCV (80-98) fL MCH (27.0-33.0) pg MCHC (31.0-35.0) g/dl RDW (11.0-16.0) % Plt Count (160-400) X10*3/uL MPV (9.4-12.3) fL Immature Gran % (Auto) (0.0-0.4) % Neut % (Auto) (45-73) % Lymph % (Auto) (20-40) % [place] % (Auto) (2-11) % Eos % (Auto) (0-4) % Baso % (Auto) (0-2) % Lymph # (Auto) (1.2-4.9) X10*3/uL [place] # (Auto) (0.1-1.2) X10*3/uL Eos # (Auto) (0.0-0.4) X10*3/uL Baso # (Auto) (0.0-0.2) X10*3/uL Abs Immat Gran (auto) (0.00-0.03) X10*3/uL Absolute Neuts (auto) (2.0-8.3) X10*3/uL Absolute Nucleated RBC (0.0-0.012) X10*3/uL Nucleated RBC % (auto) (0.0-0.2) /100WBC Sodium 139 (135-145) mmol/L Potassium 4.5 (3.3-5.1) mmol/L Chloride 103 (96-108) mmol/L Carbon Dioxide 27 (22-29) mmol/L Anion Gap 14 (12-20) BUN 11 (9-16) mg/dL Creatinine 0.71 (0.5-1.4) mg/dL Estim Creat Clear Calc 157.0 Estimated GFR > 60 Random Glucose 94 (60-115) mg/dL Calcium 9.7 D (8.4-10.2) mg/dL Total Bilirubin 0.5 (0.0-1.0) mg/dL Direct Bilirubin < 0.2 (0.0-0.5) mg/dL AST 16 (5-31) U/L ALT 12 (0-31) U/L Alkaline Phosphatase 92 (39-117) U/L Total Protein 7.3 (6.5-8.0) g/dL Albumin 4.3 (3.5-5.0) g/dL Urine Color Urine Appearance Urine pH (5.0-8.0) Ur Specific [place] (1.005-1.025) Urine Protein (NEG-TRACE) MG/DL Urine Glucose (UA) (NEG) MG/DL Urine Ketones (NEG) MG/DL Urine Blood (NEG) Urine Nitrite (NEG) Ur Leukocyte Esterase (NEG) Urine RBC (0) /HPF Urine WBC (0-4) /HPF Ur Squamous Epith Cells /LPF Urine Bacteria /LPF Urine Mucus /LPF Urine Test (NEGATIVE) Imaging Data CT scan - abdomen: Attestation: I personally reviewed and interpreted this imaging study as follows: Radiologist's impression: IMPRESSION: 1. Essentially negative exam. 2. No evidence of appendicitis. 3. Small amount of free intraperitoneal fluid is present in the pelvis with some probable right ovarian cysts. Perhaps a of the patient's pain could've been a ruptured ovarian cyst? Discharge Plan Discharge Clinical Impression: Ovarian cyst Qualifiers: Laterality: right Qualified Code(s): N83.201 - Unspecified ovarian cyst, right side Patient Disposition: Home, Self-Care Instructions: Ovarian Cyst (ED) Additional Instructions: Follow-up with [facility] Heat or ice to the abdomen Prescriptions: New ibuprofen 600 mg tablet 600 mg PO Q8H PRN (Reason: pain) Qty: 20 RF: 0 oxycodone 5 mg tablet 5 mg PO Q8H PRN (Reason: pain) Qty: 5 RF: 0 No Action meclizine 25 mg tablet 25 mg PO BID PRN (Reason: dizziness) 30 Days Qty: 60 RF: 0 albuterol sulfate 2.5 mg /3 mL (0.083 %) solution for nebulization inhalation PRNRF: 0 albuterol sulfate 90 mcg/actuation HFA aerosol inhaler inhalation RF: 0 ibuprofen 800 mg tablet 800 mg PO Q8H PRN (Reason: pain) 15 Days Qty: 30 RF: 0 lidocaine 5 % adhesive patch,medicated 1 patch topical DAILY 7 Days Qty: 1 RF: 0 triamcinolone acetonide 0.5 % cream 1 appl topical DAILY 30 Days Qty: 15 RF: 0 omeprazole 20 mg capsule,delayed release(DR/EC) 20 mg PO DAILY 30 Days Qty: 30 RF: 0 Referrals: Larry Rordíguez MD [Physician] - 2 days REPLACED BY [facility] Past Medical History Attestation statement: The following information was validated with the patient. Source: old records reviewed and nursing notes reviewed Medical History Asthma Dizziness Fatigue Left shoulder pain Pain of left scapula Shortness of breath Shoulder pain, right Surgical History History of laparoscopic cholecystectomy History of tonsillectomy Family History Family History Father No problems noted. Mother No problems noted. Paternal Grandmother Chronic mental illness Maternal Grandmother Diabetes Hypertension Family/Other FH: mental illness Social History Social History Alcohol intake: current Alcohol intake frequency: holidays/special occasions only Alcohol type: beer Advance Directives: No Advance Directives Information Provided: Yes Patient : No Current occupational status: employed Current occupation: [employer].
[2021-03-17 00:51] VITALS: BP 105/71; PULSE 79; RESP 16; O2SAT 99
== END 2021-03-17 00:57 | disposition home or self-care (01) ==
PROVIDERS: Nurse Practitioner Family; Emergency Provider Emergency Medicine; PCP Internal Medicine
DX: N83.201 Unspecified ovarian cyst, right side (principal); J45.909 Unspecified asthma, uncomplicated; Z79.899 Other long term (current) drug therapy; Z90.49 Acquired absence of other specified parts of digestive tract
CPT/HCPCS: 36415; 74177; 80048; 80076; 81001; 81025; 85025; 96374; 96375; 99284; J2270; J2405; Q9967

== ENCOUNTER → 2021-03-25 13:56 | Outpatient (BNVA) | payer OTHER, SELFPAY | PROVIDERS: PCP Internal Medicine; Visit Provider Obstetrics & Gynecology | DX: R10.31 Right lower quadrant pain (principal); N94.6 Dysmenorrhea, unspecified | CPT/HCPCS: 99202 ==

== ENCOUNTER 2021-04-13 15:51 | Outpatient (REF) | payer OTHER, SELFPAY ==
--- NOTE | ~2021-04-13 | US_ITS ---
EXAMINATION: PELVIC ULTRASOUND CLINICAL INFORMATION: Right lower quadrant pain COMPARISON: Previous CT of the abdomen and pelvis most recent February 2021 and pelvic ultrasound February 2020 TECHNIQUE: Transabdominal and transvaginal pelvic ultrasound was performed. Transvaginal exam was performed for better visualization of the uterus and ovaries. FINDINGS: The uterus is anteverted and measures 7.4 x 3.5 x 4.6 cm in dimension. No focal uterine lesion is seen. Endometrial is normal measuring 0.9 cm. There is a small amount of fluid seen in the endocervical canal. The ovaries are normal in size. The right ovary measures 3.2 x 1.8 x 1.5 cm. The left ovary measures 2.9 x 2.1 x 1.8 cm. There are multiple small ovarian cysts or follicles bilaterally. There is a small amount of fluid in the pelvis. US/US pelvic and transvaginal IMPRESSION: Unremarkable exam.
== END 2021-04-13 15:52 | disposition home or self-care (01) ==
LOC: HO.US 15:51
PROVIDERS: Visit Provider Obstetrics & Gynecology
DX: R10.31 Right lower quadrant pain (principal)
CPT/HCPCS: 76830; 76856

== ENCOUNTER → 2021-04-27 15:37 | Outpatient (BNVA) | payer OTHER, SELFPAY | PROVIDERS: PCP Internal Medicine; Visit Provider Advanced Practice Midwife | DX: Z71.2 Person consulting for explanation of examination or test findings (principal); L68.0 Hirsutism; R10.31 Right lower quadrant pain; N94.6 Dysmenorrhea, unspecified | CPT/HCPCS: 99212 ==

== ENCOUNTER 2021-05-12 11:33 | Outpatient (REF) | payer OTHER, SELFPAY ==
[2021-05-13 11:27] LABS: DHEA Sulfate 129 mcg/dL (18-391)
[2021-05-17 16:31] LABS: Testosterone, Free 5.2 pg/mL (0.1-6.4); Testosterone, Total 35 ng/dL (2-45)
== END 2021-05-12 11:34 | disposition home or self-care (01) ==
LOC: HO.LAB 11:33
PROVIDERS: PCP Internal Medicine; Visit Provider Advanced Practice Midwife
DX: L68.0 Hirsutism (principal)
CPT/HCPCS: 36415; 82627; 83498; 84146; 84402; 84403; 84443

== ENCOUNTER → 2021-06-06 15:27 | Outpatient (BNVA) | payer OTHER, SELFPAY | PROVIDERS: PCP Internal Medicine; Visit Provider Advanced Practice Midwife ==

== ENCOUNTER 2021-06-14 11:36 | Outpatient (REF) | payer OTHER, SELFPAY ==
[2021-06-14 12:42] LABS: COVID-19 Test Negative (Negative)
== END 2021-06-14 11:37 | disposition home or self-care (01) ==
LOC: HO.LAB 11:36
PROVIDERS: PCP Internal Medicine; Visit Provider Internal Medicine
DX: Z20.822 Contact with and (suspected) exposure to COVID-19 (principal)
CPT/HCPCS: 36415; 87635; C9803

== ENCOUNTER 2021-09-26 10:10 | Outpatient (REF) | payer OTHER, SELFPAY ==
[2021-09-26 10:49] LABS: Binax Internal Control QC Valid; Binax Lot number: 9864; Binax Now Covid-19 Ag Negative (Negative)
== END 2021-09-26 10:11 | disposition home or self-care (01) ==
LOC: HO.LAB 10:10
PROVIDERS: Visit Provider Internal Medicine
DX: Z20.822 Contact with and (suspected) exposure to COVID-19 (principal)
CPT/HCPCS: 36415; C9803

== ENCOUNTER 2021-10-20 17:30 | Emergency (ER) | payer OTHER, SELFPAY ==
[2021-10-20 17:36] VITALS: BP 126/74; PULSE 87; RESP 18; TEMP 36.3; O2SAT 99; BMI 39.5
--- NOTE | 2021-10-20 17:52 | ED_ITS ---
HPI - General Adult General Chief complaint: Extremity Injury, Lower Stated complaint: ?Sciatica Time Seen by Provider: 10/20/21 17:52 History of Present Illness HPI narrative: Patient complains of left-sided low back pain radiating down the left thigh into the left buttock into the left thigh and lower leg, there is no loss of sensation there is no weakness there is no changes to bowel or bladder there was no provoking injury, the pain appeared about 6-8 weeks ago and has not gone away Related Data Home Medications Medication Instructions Recorded Confirmed albuterol sulfate mg INHALATION PRN 09/30/20 09/12/21 albuterol sulfate 90 mcg/actuation INHALATION 09/30/20 09/12/21 aerosol inhaler Previous Rx's Medication Instructions Recorded omeprazole 40 mg capsule,delayed 40 mg PO DAILY 90 Days #90 cap 05/02/21 release diclofenac sodium 1 % topical gel 2 g TOPICAL QID #100 g 09/12/21 (Voltaren Arthritis Pain) nabumetone 500 mg tablet 500 mg PO BID #30 tab 09/12/21 triamcinolone acetonide 0.5 % 1 appl TOPICAL DAILY 30 Days #15 g 09/12/21 topical cream acetaminophen 500 mg tablet 1,000 mg PO QID PRN #30 tab 10/20/21 cyclobenzaprine 5 mg tablet 5 mg PO TID PRN #10 tab 10/20/21 ibuprofen 600 mg tablet 600 mg PO Q6H PRN #20 tab 10/20/21 lidocaine 5 % topical patch 1 patch TOPICAL DAILY PRN #15 ea 10/20/21 prednisone 20 mg tablet 60 mg PO DAILY 3 Days #9 tab 10/20/21 Allergies Allergy/AdvReac Type Severity Reaction Status Date / Time No Known Allergies Allergy Verified 10/20/21 17:35 Review of Systems Verdana 4l Review of Systems: Verdana 4d Verdana 4d Positive for left-sided back pain radiating into the left leg negatives are no fever no chills no dizziness or weakness no headache no neck pain no chest pain no abdominal pain no nausea vomiting no dysuria no changes to bowel or bladder nono incontinence no loss of sensation no muscle weakness no skin rash Yes all other systems are reviewed and are negative PMFSH Past Medical History Source: nursing notes reviewed Medical History Asthma Dizziness Fatigue Left shoulder pain Pain of left scapula Shortness of breath Shoulder pain, right Surgical History History of laparoscopic cholecystectomy History of tonsillectomy Family History Family History Father No problems noted. Mother No problems noted. Paternal Grandmother Chronic mental illness Maternal Grandmother Diabetes Hypertension Family/Other FH: mental illness Social History Social History Alcohol intake: current Alcohol intake frequency: holidays/special occasions only Alcohol type: beer Patient Tobacco Use Status: Never used Tobacco Tobacco use type: Cigarette e-Cigarette/Vaping Use: Never Used Second Hand Smoke Exposure: No Advance Directives: No Advance Directives Information Provided: No Patient : No Current occupational status: employed Current occupation: [employer]. Sexual orientation: Lesbian/Walter/Homosexual Gender identity: Female Physical Exam Verdana 4l Vital Signs: Verdana 4d Verdana 4d Vital Signs: Verdana 4d Verdana 4Bd Last Vital Signs Verdana 4d Sr Vice President New 4d Sr Vice President New 4d Temp 97.3 F 10/20/21 17:36 Sr Vice President New 4d Pulse 87 10/20/21 17:36 Sr Vice President New 4d Resp 18 10/20/21 17:36 BP 126/74 10/20/21 17:36 Pulse Ox 99 10/20/21 17:36 BMI result Body Mass Index 39.5 General appearance no acute distress Head is normocephalic atraumatic Neck is supple nontender Respiratory no distress no chest wall tenderness Abdomen soft nontender The back had left lower lumbar and gluteal tenderness, skin was normal in appearance there was no redness wound or rash, pain was easily reproduced with movement, no CVA tenderness no focal bony tenderness Extremities is full range of motion x4 no calf swelling or tenderness Neuro motor is 5/5 x4, sensation is intact and symmetrical, gait and balance are normal Course Course Course Narrative: Patient with sciatica is treated with a short course of steroids and muscle relaxer and analgesics and will follow with primary care doctor as needed Patient had no neurologic deficit no changes to bowel or bladder no IV drug use no fever and was well-appearing Discharge Plan Discharge Clinical Impression: Sciatica Patient Disposition: Home, Self-Care Additional Instructions: Your pain is likely from a pinched nerve shooting pain down the leg Follow with primary care doctor may refer you for physical therapy if it is not getting better, and possibly for an MRI if the pain continues to see if there is a herniated disc We are trying a short course of steroids to see if it reduces inflammation it w orks for some people and not for others Return any time if worse Prescriptions: New acetaminophen 500 mg tablet 1,000 mg PO QID PRN (Reason: pain) Qty: 30 0RF cyclobenzaprine 5 mg tablet 5 mg PO TID PRN (Reason: muscle spasm) Qty: 10 0RF lidocaine 5 % adhesive patch,medicated 1 patch topical DAILY PRN (Reason: back pain) Qty: 15 0RF Rx Instructions: leave on most painful area for up to 12 hrs ibuprofen 600 mg tablet 600 mg PO Q6H PRN (Reason: pain) Qty: 20 0RF prednisone 20 mg tablet 60 mg PO DAILY 3 Days Qty: 9 0RF No Action omeprazole 40 mg capsule,delayed release(DR/EC) 40 mg PO DAILY 90 Days Qty: 90 3RF albuterol sulfate 2.5 mg /3 mL (0.083 %) solution for nebulization inhalation PRN0RF albuterol sulfate 90 mcg/actuation HFA aerosol inhaler inhalation 0RF diclofenac sodium [Voltaren Arthritis Pain] 1 % gel 2 g topical QID Qty: 100 0RF Rx Instructions: apply to single elbow, wrist or hand; for hand includes palm/fingers/back of hand nabumetone 500 mg tablet 500 mg PO BID Qty: 30 0RF triamcinolone acetonide 0.5 % cream 1 appl topical DAILY 30 Days Qty: 15 0RF Stand Alone Forms: Work/School Release
[2021-10-20] MEDS: Ketorolac Tromethamine 30 MG/ML VIAL IM (18:21)
[2021-10-20] MEDS: predniSONE 20 MG TABLET 60 MG PO (18:21)
== END 2021-10-20 18:30 | disposition home or self-care (01) ==
PROVIDERS: Emergency Provider Internal Medicine; PCP Internal Medicine
DX: M54.42 Lumbago with sciatica, left side (principal)
CPT/HCPCS: 96372; 99283; 99284; J1885

== ENCOUNTER 2021-11-03 13:16 | Outpatient (REF) | payer OTHER, SELFPAY ==
[2021-11-03 13:40] LABS: MANUAL DIFF FLAG NO
[2021-11-03 13:48] LABS: Basophils Percent Auto 0.5 % (0-2); Eosinophils Absolute Auto 0.1 X10*3/uL (0.0-0.4); Eosinophils Percent Auto 1.1 % (0-4); Hematocrit 36.4 % (37.0-47.0); Hemoglobin 12.3 g/dl (12.0-16.0); Imm Gran Abs Auto 0.01 X10*3/uL (0.00-0.03); Imm Gran Pct Auto 0.2 % (0.0-0.4); Lymphocytes Absolute Auto 1.5 X10*3/uL (1.2-4.9); Lymphocytes Percent Auto 22.1 % (20-40); Mean Corpuscular HGB Conc 33.8 g/dl (31.0-35.0); Mean Corpuscular Hemoglobin 29.9 pg (27.0-33.0); Mean Corpuscular Volume 88.6 fL (80.0-98.0); Mean Platelet Volume 9.1 fL (9.4-12.3); Monocytes Absolute Auto 0.3 X10*3/uL (0.1-1.2); Monocytes Percent Auto 4.8 % (2-11); Neutrophils Absolute Auto 4.7 x10*3/uL (2.0-8.3); Neutrophils Percent Auto 71.3 % (45-73); Platelet Count 291 X10*3/uL (160-400); Red Blood Count 4.11 X10*6/uL (4.20-5.50); Red Cell Distribution Width 12.6 % (11.0-16.0); White Blood Count 6.6 X10*3/uL (4.8-10.8)
[2021-11-03 14:18] LABS: C Reactive Protein 3.44 mg/dL (< or = 0.50)
[2021-11-03 14:33] LABS: Erythrocyte Sedimentation Rate 55 MM/HR (0-20)
[2021-11-08 07:42] LABS: Anti Nuclear Antibody Screen NEGATIVE (NEGATIVE)
[2021-11-08 12:31] LABS: Cyclic Citrullinated Peptide <16 UNITS
== END 2021-11-03 13:17 | disposition home or self-care (01) ==
LOC: HO.LAB 13:16
PROVIDERS: PCP Internal Medicine; Visit Provider Internal Medicine
DX: M25.50 Pain in unspecified joint (principal); M54.42 Lumbago with sciatica, left side
CPT/HCPCS: 36415; 85025; 85652; 86038; 86039; 86140; 86200

== ENCOUNTER 2021-11-28 15:35 | Outpatient (REF) | payer OTHER, SELFPAY ==
--- NOTE | ~2021-11-28 | MR_ITS ---
EXAMINATION: MR BRAIN WITHOUT CONTRAST CLINICAL INFORMATION: Migraines. COMPARISON: Brain MRI dated 06/03/2019. TECHNIQUE: Multiplanar, multisequence imaging of the brain was performed without contrast. FINDINGS: No diffusion abnormalities are identified to suggest an acute or subacute infarct. The ventricles are normal in size. No mass effect or midline shift is seen. No brain parenchymal signal abnormality is noted. No extra-axial fluid collections are seen. The brainstem and cerebellum are normal. The gradient refocused acquisition is normal. The craniovertebral junction, marrow signal, and midline structures are normal. The major intracranial flow voids at the level of the [place] are preserved. The dural venous sinus flow voids are maintained. The mastoid air cells are well aerated. There is mild mucosal thickening in the left maxillary antrum. Mild to moderate ethmoid sinus mucosal thickening noted, worse on the left side with a moderate to severe leftward nasal septal deviation. MR/MR head/brain wo con IMPRESSION: Normal MRI of the brain. No acute process. Mild to moderate ethmoid sinus mucosal thickening and milder mucosal thickening in the left maxillary antrum with a significant leftward nasal septal deviation.
== END 2021-11-28 15:36 | disposition home or self-care (01) ==
LOC: HO.MRI 15:35
PROVIDERS: Visit Provider Internal Medicine
DX: G43.909 Migraine, unspecified, not intractable, without status migrainosus (principal)
CPT/HCPCS: 70551

== ENCOUNTER → 2021-12-28 14:47 | Outpatient (BNVA) | payer OTHER, SELFPAY | PROVIDERS: PCP Internal Medicine; Visit Provider Anesthesiology | DX: M54.16 Radiculopathy, lumbar region (principal); G89.4 Chronic pain syndrome | CPT/HCPCS: 99202 ==

== ENCOUNTER 2022-01-10 16:00 | Outpatient (RCR) | payer OTHER, SELFPAY ==
--- NOTE | 2021-11-23 18:17 | MHC.PT.EP ---
[facility] [place] Office [place] Office [place] Office [address] [phone] F: [phone] F: [phone] F: [phone] F: [phone] Physical Therapy Plan of Care Date of Evaluation: Date of Surgery: N/A Diagnosis: Lumbago with sciatica, left side Assessment: Pt is a 26yo F who presents to PT with low back pain radiating into L LE intermittently. Pt presents to PT with current impairments in pain, decreased lumbar ROM, increased lumbar lordosis, decreased core stab, decreased LE strength, impaired posture, impaired body mechanics, and impaired gait. She is TTP throughout lumbar spine, lumbar PS, L glutes and piriformis. Her radiating symptoms improve with extension based exercises. She is limited functionally by prolonged sitting, standing, walking, bending, and stair navigation. Her signs and symptoms may be consistent with lumbar radiculopathy. She is a good candidate for skilled PT in order to address current impairments to facilitate return to PLOF. She will be seen 2x/week for 4 weeks and will be reassessed at that time. Frequency and Duration: The patient will be seen 2x/week for 4 weeks Short Term Goals: Pt will be I with HEP to promote self management of symptoms Pt will centralize symptoms Pt will demonstrate improved awareness of posture and body mechanics Dimensional Engineer Goals: Pt will tolerate ambulation > 30 min with improved gait mechanics with minimal to no pain Pt will demonstrate ability to squat to pick object from floor with proper mechanics without pain Pt will demonstrate improvements in functional mobility as evidenced by statistically significant improvement in Modified Oswestry Low Back Pain Questionnaire Treatment Plan: Modalities to reduce pain, spasms and effusion. Manual therapy to restore motion and function. Therapeutic exercise to improve strength and flexibility. Neuromuscular re-education for posture and balance. Therapeutic activities to return to functional activities of daily living. Electronically signed by: Deborah Hopson, PT, DPT Please sign and return to therapist. Thank you for your referral.
--- NOTE | 2022-01-10 17:26 | MHC.PT.DC ---
[facility] [place] Office [place] Office [place] Office [address] Stephani Toure [address] [phone] F: [phone] F: [phone] F: [phone] F: [phone] Physical Therapy Discharge Report Diagnosis: Lumbago with sciatica, left side Date of Surgery: N/A Date of Evaluation: 11/23/21 Date of Discharge: 01/10/22 Treatments to Date: 9 Cancellations to Date: No Shows to Date: Discharge Status: Improved Function Independent with HEP Discharge Summary: Pt has made fair progress with skilled PT. She has centralization of symptoms with extension based exercises. She continues to have intermittent pain and radiating symptoms but she is improving her awareness of posture and body mechanics. She demonstrated ability to squat and pick object up from floor with good mechanics. She has improved her score on Modified Oswestry Low Back Pain Disability questionnaire from 42% on initial PT evaluation to 34% today. She is I with HEP. Pt is being D/C from skilled PT. Provided pt with printed, updated copy of HEP and pt verbalized understanding. Pt reports no further questions or concerns for PT at this time. Electronically signed by: Deborah Hopson, PT, DPT Please sign and return to therapist. Thank you for your referral.
== END 2022-01-10 17:26 | disposition home or self-care (01) ==
LOC: HO.PT 16:00
PROVIDERS: PCP Internal Medicine; Visit Provider Internal Medicine
DX: M54.42 Lumbago with sciatica, left side (principal)
CPT/HCPCS: 97110; 97162; 97530

== ENCOUNTER 2022-01-10 17:03 | Outpatient (REF) | payer OTHER, SELFPAY ==
--- NOTE | ~2022-01-10 | MR_ITS ---
MR LUMBAR SPINE WITHOUT CONTRAST CLINICAL INFORMATION: Chronic pain syndrome. COMPARISON: None available. TECHNIQUE: MRI of the lumbar spine was obtained using routine sequences without contrast. FINDINGS: There are 5 nonrib-bearing lumbar-type vertebral bodies. Vertebral body heights are maintained. The disc volumes are preserved and the discs remain well-hydrated. There is no bone marrow edema. There are no acute fractures. Conus terminates at the L1 level. Bone marrow signal is homogenous and normal. L1-L2: Disc contour is normal. No central canal stenosis and no foraminal stenosis. L2-L3: Disc contour is normal. No central canal stenosis and no foraminal stenosis. L3-L4: Disc contour is normal. There is mild bilateral facet arthropathy. No central canal stenosis and no foraminal stenosis. L4-L5: Small annular disc bulge and mild bilateral facet arthropathy. No central canal stenosis and no foraminal stenosis. L5-S1: Small annular disc bulge and mild bilateral facet arthropathy. No central canal stenosis and no foraminal stenosis. MR/MR lumbar spine wo con IMPRESSION: Mild lumbar spondylosis. No severe central canal stenosis and no severe foraminal stenosis within the lumbar spine.
== END 2022-01-10 17:04 | disposition home or self-care (01) ==
LOC: HO.MRI 17:03
PROVIDERS: Visit Provider Anesthesiology
DX: G89.4 Chronic pain syndrome (principal); M54.16 Radiculopathy, lumbar region
CPT/HCPCS: 72148

== ENCOUNTER 2022-03-15 10:11 | Outpatient (REF) | payer OTHER, SELFPAY ==
[2022-03-15 11:03] LABS: C Reactive Protein 0.74 mg/dL (< or = 0.50)
[2022-03-15 11:25] LABS: Erythrocyte Sedimentation Rate 29 MM/HR (0-20)
== END 2022-03-15 10:12 | disposition home or self-care (01) ==
LOC: HO.LAB 10:11
PROVIDERS: PCP Internal Medicine; Visit Provider Internal Medicine Rheumatology
DX: M54.16 Radiculopathy, lumbar region (principal); G89.4 Chronic pain syndrome; R70.0 Elevated erythrocyte sedimentation rate; M54.9 Dorsalgia, unspecified; M25.571 Pain in right ankle and joints of right foot
CPT/HCPCS: 36415; 85652; 86140; 99202; 99212

== ENCOUNTER 2022-03-23 14:08 | Outpatient (REF) | payer OTHER, SELFPAY ==
--- NOTE | ~2022-03-23 | XR_ITS ---
EXAMINATION: XR ANKLE, RIGHT CLINICAL INFORMATION: Pain right ankle and foot. COMPARISON: Radiographs right ankle 03/15/2015. TECHNIQUE: AP, lateral, and mortise views of the right ankle. FINDINGS: Old healed fracture lateral malleolus. No acute or healing fracture, dislocation or destructive process. Ankle mortise is symmetric. No visible ankle capsular effusion. Retrocalcaneal recess preserved. Subtalar joint unremarkable. No significant calcaneal spur. Normal bony mineralization. XR/XR ankle RT min 3V IMPRESSION: Normal right ankle.
== END 2022-03-23 14:09 | disposition home or self-care (01) ==
LOC: HO.XRAY 14:08
PROVIDERS: PCP Internal Medicine; Visit Provider Internal Medicine Rheumatology
DX: Z00.00 Encounter for general adult medical examination without abnormal findings (principal); M25.571 Pain in right ankle and joints of right foot; Z13.220 Encounter for screening for lipoid disorders; Z13.29 Encounter for screening for other suspected endocrine disorder
CPT/HCPCS: 73610

== ENCOUNTER 2022-06-05 11:01 | Outpatient (REF) | payer OTHER, SELFPAY ==
[2022-06-05 11:45] LABS: COVID-19 Test Negative (Negative)
== END 2022-06-05 11:02 | disposition home or self-care (01) ==
LOC: HO.LAB 11:01
PROVIDERS: Visit Provider Internal Medicine
DX: Z20.822 Contact with and (suspected) exposure to COVID-19 (principal)
CPT/HCPCS: 87635; C9803

== ENCOUNTER 2022-06-15 15:21 | Outpatient (REF) | payer OTHER, SELFPAY ==
[2022-06-15 16:02] LABS: COVID-19 Test Negative (Negative)
== END 2022-06-15 15:22 | disposition home or self-care (01) ==
LOC: HO.LAB 15:21
PROVIDERS: Visit Provider Internal Medicine
DX: Z20.822 Contact with and (suspected) exposure to COVID-19 (principal)
CPT/HCPCS: 87635; C9803

== ENCOUNTER 2022-06-28 17:44 | Emergency (ER) | payer OTHER, SELFPAY ==
--- NOTE | ~2022-06-28 | US_ITS ---
EXAMINATION: US PELVIS CLINICAL INFORMATION: Right ovarian cyst, pain COMPARISON: CT 06/28/2022 TECHNIQUE: Ultrasound of the pelvis is performed using both transabdominal and transvaginal transducers along with Doppler. Transvaginal imaging is performed due to inadequate visualization transabdominally. FINDINGS: The uterus measures 7.7 cm in length and 3.7 x 5.2 cm in AP and transverse dimensions. Endometrial stripe measures 1.1 cm in thickness. The right ovary measures 6.2 x 3.1 x 4.6 cm. Doppler evaluation demonstrate right ovarian flow. Complex, heterogeneous structure in the right ovary measures 4.2 x 3.1 x 3.7 cm, which may represent a hemorrhagic cyst. The left ovary measures 3.6 x 2.1 x 2.4 cm and appears unremarkable. Doppler evaluation demonstrates left ovarian flow. Small amount of free fluid noted. US/US pelvic and transvaginal IMPRESSION: 1. Complex right ovarian structure measuring up to 4.2 cm, which may represent a hemorrhagic cyst. Ultrasound follow-up in 6-12 weeks is recommended. 2. Small amount of nonspecific pelvic free fluid, which may be physiologic.
--- NOTE | ~2022-06-28 | CT_ITS ---
EXAMINATION: CT ABDOMEN AND PELVIS WITHOUT CONTRAST CLINICAL INFORMATION: Right lower quadrant pain. COMPARISON: CT scan of the abdomen and pelvis dated 03/16/2021, pelvic ultrasound dated 04/13/2021. TECHNIQUE: Multidetector volumetric imaging was performed from the superior aspect of the liver through the pubic symphysis. Sagittal and coronal reformatted images were obtained on the technologist's workstation. This CT examination was performed using dose optimization techniques as appropriate, variously including the following: *Automated exposure control *Adjustment of mA and/or kV according to patient size (this includes techniques or standardized protocols for targeted exams where dose is matched to indication/reason for exam; i.e. extremities or head) *Use of iterative reconstruction technique DLP: 820 mGy-cm FINDINGS: LUNG BASES: The visualized lung bases are unremarkable. LIVER, GALLBLADDER, AND BILIARY TREE: No hepatic abnormality. Status post cholecystectomy. PANCREAS: Unremarkable. SPLEEN: Unremarkable. ADRENAL GLANDS: Unremarkable. KIDNEYS AND URETERS: The kidneys are normal in size, shape, and attenuation. No hydronephrosis, hydroureter, or calculi seen. No perinephric stranding. BLADDER: Unremarkable. GASTROINTESTINAL TRACT: The stomach, small bowel and appendix are unremarkable. The colon and rectum are unremarkable. ABDOMINAL WALL: No significant hernia is appreciated. LYMPH NODES: No lymphadenopathy. VASCULAR: Unremarkable. PELVIC VISCERA: Anteverted/anteflexed uterus and left ovary without abnormality. Interval development of probable right ovarian cyst with fluid sediment level measuring 6.3 x 4.7 x 5.1 cm (image 67, series 3; image 53, series 6). OSSEOUS STRUCTURES: Unremarkable. CT/CT abdomen pelvis wo IV con IMPRESSION: 1. Interval development of 6 cm right ovarian cyst with features suggesting a physiologic hemorrhagic cyst. This could be further characterized with pelvic ultrasound. 2. No acute intra-abdominal/pelvic abnormality to explain the patient's symptoms.
[2022-06-28 19:16] VITALS: BP 122/47; PULSE 98; RESP 18; TEMP 37.1; O2SAT 100; BMI 39.6
[2022-06-28 20:20] LABS: MANUAL DIFF FLAG NO
[2022-06-28 20:24] LABS: Appearance Urine Clear; Basophils Percent Auto 0.5 % (0-2); Color Urine Yellow; Eosinophils Absolute Auto 0.2 X10*3/uL (0.0-0.4); Eosinophils Percent Auto 2.5 % (0-4); Glucose Urine UA Negative (Negative); Hematocrit 36.3 % (37.0-47.0); Hemoglobin 12.5 g/dl (12.0-16.0); Imm Gran Abs Auto 0.01 X10*3/uL (0.00-0.03); Imm Gran Pct Auto 0.1 % (0.0-0.4); Leukocyte Esterase Urine Negative (Negative); Lymphocytes Absolute Auto 2.1 X10*3/uL (1.2-4.9); Lymphocytes Percent Auto 26.8 % (20-40); Mean Corpuscular HGB Conc 34.4 g/dl (31.0-35.0); Mean Corpuscular Volume 87.3 fL (80.0-98.0); Mean Platelet Volume 9.2 fL (9.4-12.3); Monocytes Absolute Auto 0.6 X10*3/uL (0.1-1.2); Monocytes Percent Auto 7.5 % (2-11); Neutrophils Absolute Auto 4.8 x10*3/uL (2.0-8.3); Neutrophils Percent Auto 62.6 % (45-73); Nitrite Urine Negative (Negative); PH 5.5 (5.0-9.0); Platelet Count 286 X10*3/uL (160-400); Red Blood Count 4.16 X10*6/uL (4.20-5.50); Red Cell Distribution Width 12.4 % (11.0-16.0); UMIC TRIGGER UACC YES; Urine Blood Small (1+) (Negative); Urine Ketones 15 mg/dL (Negative); Urine Protein Negative (Neg-Trace); White Blood Count 7.7 X10*3/uL (4.8-10.8)
[2022-06-28 20:25] VITALS: BP 126/72; PULSE 86; RESP 19; TEMP 36.9; O2SAT 99
[2022-06-28 20:26] LABS: UPreg QC Valid YES; Urine Pregnancy NEGATIVE (NEGATIVE)
[2022-06-28 20:44] LABS: Alanine Aminotransferase 16 U/L (0-31); Albumin Level 4.4 g/dL (3.5-5.0); Alkaline Phosphatase 99 U/L (39-117); Anion Gap 15 (12-20); Aspartate Amino Transferase 19 U/L (5-31); Bilirubin Total 0.4 mg/dL (0.0-1.0); Blood Urea Nitrogen 11 mg/dL (9-16); Calcium 9.5 mg/dL (8.4-10.2); Carbon Dioxide 25 mmol/L (22-29); Chloride 103 mmol/L (96-108); Creatinine Clr Calc Pharmacy 145.9; Estimated Glomerular Filt Rate > 60; Glucose Random 88 mg/dL (60-115); Potassium 4.3 mmol/L (3.3-5.1); Sodium 139 mmol/L (135-145); Total Protein 7.4 g/dL (6.5-8.0)
[2022-06-28 20:47] LABS: Bacteria Urine None Seen (None Seen); Hyaline Casts Urine 0-2 /LPF (0-2); RBC Urine 0-2 /HPF (0-2); Squamous Epithelial Cell Urine 0-2 /HPF (0-2); WBC Urine 0-5 /HPF (0-5)
--- NOTE | 2022-06-28 23:18 | ED.ABDPAIN ---
HPI - Abdominal Pain General Chief Complaint: Abdominal Pain Stated Complaint: Pain in right side Time Seen by Provider: 06/28/22 21:59 Source: patient Mode of arrival: ambulatory Limitations: no limitations History of Present Illness HPI narrative: Patient history of uncomplicated small ovarian cysts complaining of pain in the right lower abdomen since yesterday with nausea patient been having some dragging pain for last 1 week thought she has menstrual cramps pain got worse yesterday than relieved after that no fever no chills heads 1 loose bowel also yesterday Related Data Home Medications Medication Instructions Recorded Confirmed fluticasone propionate 44 1 puff inhalation BID 11/03/21 03/23/22 mcg/actuation HFA aerosol inhaler (Flovent HFA) cetirizine 10 mg tablet 10 mg PO DAILY 02/23/22 03/23/22 montelukast 10 mg tablet 10 mg PO DAILY 02/23/22 03/23/22 Previous Rx's Medication Instructions Recorded omeprazole 40 mg capsule,delayed 40 mg PO DAILY 90 days #90 caps 05/02/21 release ibuprofen 600 mg tablet 600 mg PO Q8H PRN pain #30 tabs 02/23/22 albuterol sulfate 2.5 mg/3 mL 2.5 mg (3 mL) inhalation BID PRN 06/05/22 (0.083 %) solution for nebulization bronchospasm 30 days #75 mL albuterol sulfate 90 mcg/actuation 2 puff inhalation Q6-8H PRN 06/05/22 aerosol inhaler shortness of breath or wheezing #8.5 grams promethazine 25 mg tablet 25 mg PO TID PRN nausea and 06/07/22 vomiting 7 days #21 tabs ibuprofen 600 mg tablet 600 mg PO Q6H PRN Pain, Moderate 06/29/22 #30 tabs Allergies Allergy/AdvReac Type Severity Reaction Status Date / Time No Known Allergies Allergy Verified 03/23/22 13:36 Review of Systems Review of Systems Yes all other systems are reviewed and are negative PMFSH Past Medical History Medical History Asthma Chronic pain syndrome Lumbar back pain with radiculopathy affecting left lower extremity Migraines Polyarthralgia Skin lesion Surgical History History of laparoscopic cholecystectomy History of tonsillectomy Family History Family History Father Depression Mother No problems noted. Paternal Grandmother Chronic mental illness Maternal Grandmother Diabetes Hypertension Family/Other FH: mental illness Other Mental health disorder Social History Social History Housing: Apartment Alcohol intake: current Alcohol intake frequency: holidays/special occasions only Alcohol type: beer and hard liquor Patient Tobacco Use Status: Never used Tobacco Tobacco use type: Cigarette e-Cigarette/Vaping Use: Never Used Second Hand Smoke Exposure: No Advance Directives: No Advance Directives Information Provided: No service: No Current occupational status: employed Current occupation: [employer]. Sexual orientation: Lesbian/Walter/Homosexual Gender identity: Female Cognitive needs: No Hearing needs: No Vision needs: Yes (Glasses) Physical Exam ED Vital Signs: Vital Signs - 24 hr 06/28/22 19:16 06/28/22 20:25 06/28/22 23:32 Temperature 98.7 F 98.4 F Pulse Rate 98 86 88 Respiratory Rate 18 19 18 Blood Pressure 122/47 L 126/72 125/74 Pulse Oximetry 100 99 100 Oxygen Delivery Method Room Air Room Air Room Air 06/29/22 01:51 Temperature 97.0 F Pulse Rate 82 Respiratory Rate 18 Blood Pressure 118/66 Pulse Oximetry 100 Oxygen Delivery Method Room Air BMI result Body Mass Index 39.6 Appearance: Alert. Oriented X3. No acute distress. Eyes: PERRLA, No Nystagmus ENT: Pharynx normal. Oral Mucosa moist Neck: Normal inspection. Neck supple. CVS: Normal heart rate and rhythm. Pulses normal. Respiratory: No respiratory distress. Equal air entry bilateral, no wheezing/rales/rhonchi Abdomen: Soft and deep tenderness right lower quadrant no rebound tenderness or guarding. Bowel sounds are present, no mass palpable, no CVA tenderness Skin: Skin warm and dry. Normal skin color. Normal skin turgor. Extremities: No lower extremity edema. No calf tenderness Neuro: Oriented X 3. No motor deficit. No sensory deficit.No cerebellar signs MDM - Abdominal Pain MDM Narrative Medical decision making narrative: [address] scan negative for appendicitis showed 6 cm of right ovarian cyst questionable hemorrhagic labs were stable will get pelvic ultrasound to rule out hemorrhagic ovarian cyst/torsion No torsion seen in ultrasound likely hemorrhagic ovarian cyst Differential Diagnosis Differential diagnosis: Likely acute appendicitis, calculus of kidney, diverticulitis and ovarian cyst Lab Data Attestation: I reviewed the patient's lab results. Result diagrams: 06/28/22 20:14 06/28/22 20:14 Labs: Lab Results 06/28/22 06/28/22 06/28/22 Range/Units 20:14 20:14 20:14 WBC 7.7 (4.8-10.8) X10*3/uL RBC 4.16 L (4.20-5.50) X10*6/uL Hgb 12.5 (12.0-16.0) g/dl Hct 36.3 L (37.0-47.0) % MCV 87.3 (80.0-98.0) fL MCH 30.0 (27.0-33.0) pg MCHC 34.4 (31.0-35.0) g/dl RDW 12.4 (11.0-16.0) % Plt Count 286 (160-400) X10*3/uL MPV 9.2 L (9.4-12.3) fL Immature Gran % (Auto) 0.1 (0.0-0.4) % Neut % (Auto) 62.6 (45-73) % Lymph % (Auto) 26.8 (20-40) % [place] % (Auto) 7.5 (2-11) % Eos % (Auto) 2.5 (0-4) % Baso % (Auto) 0.5 (0-2) % Lymph # (Auto) 2.1 (1.2-4.9) X10*3/uL [place] # (Auto) 0.6 (0.1-1.2) X10*3/uL Eos # (Auto) 0.2 (0.0-0.4) X10*3/uL Baso # (Auto) 0.0 (0.0-0.2) X10*3/uL Abs Immat Gran (auto) 0.01 (0.00-0.03) X10*3/uL Absolute Neuts (auto) 4.8 (2.0-8.3) x10*3/uL Absolute Nucleated RBC 0.000 (0.0-0.012) X10*3/uL Nucleated RBC % (auto) 0.0 (0.0-0.2) /100WBC Sodium 139 (135-145) mmol/L Potassium 4.3 (3.3-5.1) mmol/L Chloride 103 (96-108) mmol/L Carbon Dioxide 25 (22-29) mmol/L Anion Gap 15 (12-20) BUN 11 (9-16) mg/dL Creatinine 0.72 (0.5-1.4) mg/dL Estim Creat Clear Calc 145.9 Estimated GFR > 60 Random Glucose 88 (60-115) mg/dL Calcium 9.5 (8.4-10.2) mg/dL Total Bilirubin 0.4 (0.0-1.0) mg/dL AST 19 (5-31) U/L ALT 16 (0-31) U/L Alkaline Phosphatase 99 (39-117) U/L Total Protein 7.4 (6.5-8.0) g/dL Albumin 4.4 (3.5-5.0) g/dL Urine Color Yellow Urine Appearance Clear Urine pH 5.5 (5.0-9.0) Ur Specific [place] 1.020 (1.005-1.025) Urine Protein Negative (Neg-Trace) mg/dL Urine Glucose (UA) Negative (Negative) mg/dL Urine Ketones 15 (Negative) mg/dL Urine Blood Small (1+) H (Negative) Urine Nitrite Negative (Negative) Ur Leukocyte Esterase Negative (Negative) Urine RBC 0-2 (0-2) /HPF Urine WBC 0-5 (0-5) /HPF Ur Squamous Epith Cells 0-2 (0-2) /HPF Urine Bacteria None Seen (None Seen) Hyaline Casts 0-2 (0-2) /LPF Urine Test (NEGATIVE) 06/28/22 Range/Units 20:14 WBC (4.8-10.8) X10*3/uL RBC (4.20-5.50) X10*6/uL Hgb (12.0-16.0) g/dl Hct (37.0-47.0) % MCV (80.0-98.0) fL MCH (27.0-33.0) pg MCHC (31.0-35.0) g/dl RDW (11.0-16.0) % Plt Count (160-400) X10*3/uL MPV (9.4-12.3) fL Immature Gran % (Auto) (0.0-0.4) % Neut % (Auto) (45-73) % Lymph % (Auto) (20-40) % [place] % (Auto) (2-11) % Eos % (Auto) (0-4) % Baso % (Auto) (0-2) % Lymph # (Auto) (1.2-4.9) X10*3/uL [place] # (Auto) (0.1-1.2) X10*3/uL Eos # (Auto) (0.0-0.4) X10*3/uL Baso # (Auto) (0.0-0.2) X10*3/uL Abs Immat Gran (auto) (0.00-0.03) X10*3/uL Absolute Neuts (auto) (2.0-8.3) x10*3/uL Absolute Nucleated RBC (0.0-0.012) X10*3/uL Nucleated RBC % (auto) (0.0-0.2) /100WBC Sodium (135-145) mmol/L Potassium (3.3-5.1) mmol/L Chloride (96-108) mmol/L Carbon Dioxide (22-29) mmol/L Anion Gap (12-20) BUN (9-16) mg/dL Creatinine (0.5-1.4) mg/dL Estim Creat Clear Calc Estimated GFR Random Glucose (60-115) mg/dL Calcium (8.4-10.2) mg/dL Total Bilirubin (0.0-1.0) mg/dL AST (5-31) U/L ALT (0-31) U/L Alkaline Phosphatase (39-117) U/L Total Protein (6.5-8.0) g/dL Albumin (3.5-5.0) g/dL Urine Color Urine Appearance Urine pH (5.0-9.0) Ur Specific [place] (1.005-1.025) Urine Protein (Neg-Trace) mg/dL Urine Glucose (UA) (Negative) mg/dL Urine Ketones (Negative) mg/dL Urine Blood (Negative) Urine Nitrite (Negative) Ur Leukocyte Esterase (Negative) Urine RBC (0-2) /HPF Urine WBC (0-5) /HPF Ur Squamous Epith Cells (0-2) /HPF Urine Bacteria (None Seen) Hyaline Casts (0-2) /LPF Urine Test NEGATIVE (NEGATIVE) Discharge Plan Discharge Clinical Impression: Ovarian cyst Patient Disposition: Home, Self-Care Instructions: Ovarian Cyst (ED) Additional Instructions: You have large 6 cm cyst Eventually it will disappear Ibuprofen for pain Report to the ER if worsening of the pain Follow-up with assisted sales representative Prescriptions: New ibuprofen 600 mg tablet 600 mg PO Q6H PRN (Reason: Pain, Moderate) Qty: 30 0RF No Action omeprazole 40 mg capsule,delayed release(DR/EC) 40 mg PO DAILY 90 Days Qty: 90 3RF albuterol sulfate 90 mcg/actuation HFA aerosol inhaler 2 puff inhalation Q6-8H PRN (Reason: shortness of breath or wheezing) Qty: 8.5 0RF albuterol sulfate 2.5 mg /3 mL (0.083 %) solution for nebulization 2.5 mg inhalation BID PRN (Reason: bronchospasm) 30 Days Qty: 75 4RF promethazine 25 mg tablet 25 mg PO TID PRN (Reason: nausea and vomiting) 7 Days Qty: 21 0RF Flovent HFA 44 mcg/actuation HFA aerosol inhaler 1 puff inhalation BID Rx Instructions: administer with spacer montelukast 10 mg tablet 10 mg PO DAILY cetirizine 10 mg tablet 10 mg PO DAILY ibuprofen 600 mg tablet 600 mg PO Q8H PRN (Reason: pain) Qty: 30 0RF Referrals: Larry Rodríguez MD [Physician] - 1 week Interventions: LWBS Worksheet Last Done: 06/28/22 19:38 ED Discharge Assessment Last Done: 06/29/22 01:52 Discharge Date/Time: 06/29/22 01:54
[2022-06-28 23:32] VITALS: BP 125/74; PULSE 88; RESP 18; O2SAT 100
[2022-06-28] MEDS: Ketorolac Tromethamine 60 MG/2 ML VIAL IM (23:44)
[2022-06-29 01:51] VITALS: BP 118/66; PULSE 82; RESP 18; TEMP 36.1; O2SAT 100
== END 2022-06-29 01:54 | disposition home or self-care (01) ==
PROVIDERS: Emergency Medicine; Emergency Provider Internal Medicine; PCP Internal Medicine
DX: N83.201 Unspecified ovarian cyst, right side (principal); R10.31 Right lower quadrant pain; Z79.899 Other long term (current) drug therapy
CPT/HCPCS: 36415; 74176; 76830; 76856; 80053; 81001; 81025; 85025; 96372; 99283; 99284; 99285; J1885

== ENCOUNTER 2022-08-21 06:39 | Emergency (ER) | payer OTHER, SELFPAY ==
--- NOTE | ~2022-08-21 | XR_ITS ---
EXAMINATION: XR CHEST CLINICAL INFORMATION: Shortness of breath. COMPARISON: 06/16/2020 chest radiograph. TECHNIQUE: Frontal view of the chest was obtained. FINDINGS: No significant abnormality is noted involving the heart, lungs, mediastinum, bony thorax or soft tissues. XR/XR chest 1V IMPRESSION: No acute cardiopulmonary process.
[2022-08-21 07:16] VITALS: BP 137/72; PULSE 116; RESP 20; TEMP 37.7; O2SAT 95; BMI 38.6
--- NOTE | 2022-08-21 08:06 | ED.GENADULT ---
HPI - General Adult General Chief complaint: General Medical Stated complaint: fever, nausea Time Seen by Provider: 08/21/22 08:04 Source: patient Mode of arrival: ambulatory Limitations: no limitations History of Present Illness HPI narrative: 27 yo female w/ PMHx significant for asthma and GERD presenting to the ED c/o 2 wk hx of flu-like symptoms. She endorses fever (Tmax 102), chills, cough productive of green sputum occasionally, chest discomfort w/ coughing, head pressure, sore throat, and nausea w/ intermittent diarrhea. Also reports decreased p.o. intake. States symptoms started after exposure to her partner who had similar symptoms. Admits to taking Tylenol PLAN[employer] INTERN. Denies vomiting, blood in her stool or sputum, lightheadedness, neck pain, difficulty breathing or swallowing, changes to urinary output/frequency, recent travel, surgies, or use of estrogen in any form. Denies hx of hospitalization or intubation secondary to asthma. Denies current or hx of cigarette use. Onset (ago): week(s) (2) Location: head Radiation: non-radiation Severity: mild Severity scale (1-10): 2 Quality: dull Pain Consistency: constant Relieving factors: none Associated symptoms: cough, fever/chills and shortness of breath Treatments prior to arrival: other (Tylenol at 0530) Related Data Home Medications Medication Instructions Recorded Confirmed fluticasone propionate 44 1 puff inhalation BID 11/03/21 03/23/22 mcg/actuation HFA aerosol inhaler (Flovent HFA) cetirizine 10 mg tablet 10 mg PO DAILY 02/23/22 03/23/22 montelukast 10 mg tablet 10 mg PO DAILY 02/23/22 03/23/22 Previous Rx's Medication Instructions Recorded ibuprofen 600 mg tablet 600 mg PO Q8H PRN pain #30 tabs 02/23/22 albuterol sulfate 2.5 mg/3 mL 2.5 mg (3 mL) inhalation BID PRN 06/05/22 (0.083 %) solution for nebulization bronchospasm 30 days #75 mL albuterol sulfate 90 mcg/actuation 2 puff inhalation Q6-8H PRN 06/05/22 aerosol inhaler shortness of breath or wheezing #8.5 grams promethazine 25 mg tablet 25 mg PO TID PRN nausea and 06/07/22 vomiting 7 days #21 tabs ibuprofen 600 mg tablet 600 mg PO Q6H PRN Pain, Moderate 06/29/22 #30 tabs omeprazole 40 mg capsule,delayed 40 mg PO DAILY 90 days #90 caps 07/02/22 release albuterol sulfate 90 mcg/actuation 2 puff inhalation Q4-6H PRN 08/21/22 aerosol inhaler shortness of breath or wheezing #6.7 grams azithromycin 250 mg tablet See Rx Instructions PO .COMPLEX #6 08/21/22 tabs benzonatate 100 mg capsule 100 mg PO TID PRN cough #14 caps 08/21/22 fluticasone propionate 50 2 spray intranasal DAILY #16 grams 08/21/22 mcg/actuation nasal spray,suspension (Flonase Allergy Relief) Allergies Allergy/AdvReac Type Severity Reaction Status Date / Time No Known Allergies Allergy Verified 03/23/22 13:36 Review of Systems Review of Systems: Constitutional: + Fever, + Chills, No Night Sweats, +Fatigue ENT/Mouth: No Ear Pain, + Nasal Congestion, No Sinus Pain, No Hoarseness, + sore throat, + Rhinorrhea, No Swallowing Difficulty Eyes: No Eye Pain, No Swelling, No Redness Cardiovascular: + chest discomfort w/ cough, + SOB, No Palpitations Respiratory: + cough w/ sputum, No Wheezing, No Smoke Exposure, No Dyspnea Gastrointestinal: + Nausea, No Vomiting, + Diarrhea, No Constipation, + Abdominal pain Genitourinary: No Dysuria, No Urinary Frequency, No Hematuria, No Flank Pain, No Urinary Flow Changes, No Hesitancy Musculoskeletal: No joint pain, + Myalgias, No Joint Swelling Skin: No Skin Lesions, No rash Neuro: No Weakness, No Dizziness, + Headache Yes all other systems are reviewed and are negative [facility] Past Medical History Attestation statement: The following information was validated with the patient. Medical History Asthma Chronic pain syndrome Lumbar back pain with radiculopathy affecting left lower extremity Migraines Polyarthralgia Skin lesion Surgical History History of laparoscopic cholecystectomy History of tonsillectomy Family History Family History Father Depression Mother No problems noted. Paternal Grandmother Chronic mental illness Maternal Grandmother Diabetes Hypertension Family/Other FH: mental illness Other Mental health disorder Social History Social History Housing: Apartment Alcohol intake: current Alcohol intake frequency: holidays/special occasions only Alcohol type: beer and hard liquor Patient Tobacco Use Status: Never used Tobacco Tobacco use type: Cigarette e-Cigarette/Vaping Use: Never Used Second Hand Smoke Exposure: No Advance Directives: No Advance Directives Information Provided: No service: No Current occupational status: employed Current occupation: [employer]. Sexual orientation: Lesbian/Walter/Homosexual Gender identity: Female Cognitive needs: No Hearing needs: No Vision needs: Yes (Glasses) Physical Exam ED Vital Signs: Vital Signs - 24 hr 08/21/22 07:16 08/21/22 08:09 08/21/22 08:53 Temperature 99.8 F 100.0 F Pulse Rate 116 H 106 H 89 Respiratory Rate 20 14 18 Blood Pressure 137/72 115/69 Pulse Oximetry 95 96 Oxygen Delivery Method Room Air Room Air 08/21/22 10:30 Temperature 97.5 F Pulse Rate 95 Respiratory Rate 16 Blood Pressure 105/67 Pulse Oximetry 99 Oxygen Delivery Method Room Air BMI result Body Mass Index 38.6 Const General: cooperative, comfortable and no acute distress Orientation/consciousness: patient oriented x3 Limitations: no limitations HENMT Head: Yes normal to inspection and Yes atraumatic Ears: hearing grossly normal bilaterally, external ears normal and mastoids normal General nose exam: Normal external nose present Face and sinus: Yes normal facial exam and Yes sinuses nontender Mouth: Normal oral and palatal mucosa present and moist mucous membranes Throat: Yes posterior oropharynx normal, Yes tonsils normal, Yes uvula midline, No peritonsillar mass and No uvular edema Eyes General: appearance normal, both eyes and all related structures Conjunctivae: conjunctivae normal Sclerae: sclerae normal Pupils: Equal, round and reactive pupils present Neck Neck: Yes normal visual inspection and Yes no lymphadenopathy Chest Chest palpation & inspection: normal inspection of the chest Resp Effort & Inspection: normal respiratory effort, Actively coughing Quality: actively coughing, not labored and no stridor Auscultation: clear to auscultation bilaterally, no crackles, no rales, no rhonchi and no wheezes Cardio Rate: tachycardic Rhythm: regular rhythm Heart sounds: S1 normal heart sound present and S2 normal heart sound present Peripheral pulses: Peripheral pulses 2+ throughout GI Inspection: Yes normal to inspection Palpation (GI): Soft to palpation, not firm, nontender, no guarding and not rigid Skin General skin exam: no rashes or lesions noted Neuro General: patient oriented x3 Cranial nerves: Yes Equal, round and reactive pupils present Extrem General: Yes no pedal edema and Yes no calf tenderness Course Course Course Narrative: 942--XR chest 1V IMPRESSION: No acute cardiopulmonary process. ? -no leukocytosis. Labs otherwise unremarkable, troponin negative. COVID-19/influenza/RSV negative -1111--vital signs improved after antipyretics/pain medication. UA with RBCs, not infected Results discussed with patient including worrisome signs and symptoms and strict return precautions, and when to return to the emergency department. They verbalized understanding and feel safe for discharge at this time. Medications Administered Discontinued Medications Generic Name Dose Route Start Last Admin Trade Name Chase PRN Reason Stop Dose Admin Benzonatate 100 mg 08/21/22 08:38 08/21/22 09:16 Benzonatate 100 Mg Capsule PO 08/21/22 08:39 100 mg ONCE ONE Administration Hydrocodone Bit/Homatropine Methylb 5 ml 08/21/22 08:38 08/21/22 09:16 Hydrocodone/Homat 5/1.5/5 Ml 5 Ml Syrup PO 08/21/22 08:39 5 ml ONCE ONE Administration Sodium Chloride 1,000 mls @ 999 mls/hr 08/21/22 08:45 08/21/22 09:16 Ns IV 08/21/22 09:45 999 mls/hr .Q1H1M BRITTANY Administration Ketorolac Tromethamine 15 mg 08/21/22 08:40 08/21/22 09:17 Ketorolac Tromethamine 15 Mg/Ml Vial IVPUSH 08/21/22 08:41 15 mg ONCE ONE Administration Levalbuterol HCl 1.25 mg 08/21/22 08:38 08/21/22 08:53 Levalbuterol Hcl 1.25 Mg/0.5 Ml Vial.Neb INHALE 08/21/22 08:39 1.25 mg ONCE ONE Administration Medical Decision Making MDM Narrative Medical decision making narrative: 27 yo female w/ PMHx significant for asthma and GERD presenting to the ED c/o 2 wk hx of flu-like symptoms. On exam febrile, tachycardic likely from fever and actively coughing during evaluation, lungs CTA, no pedal edema/calf tenderness, abdomen is soft/nontender, exam otherwise nonfocal. Concern for viral illness vs bronchitis vs pneumonia vs dehydration. Low suspicion for ACS/PE Low suspicion for severe sepsis Plan: EKG, labs, IVF, tessalon Perles, Hycodan, Xopenex, reassess Medical Records Medical records reviewed: Yes I reviewed the patient's medical records. Lab Data Lab results reviewed: Yes I reviewed the patient's lab results. Result diagrams: 08/21/22 08:58 08/21/22 08:58 Labs: Lab Results 08/21/22 08/21/22 08/21/22 Range/Units 08:20 08:58 08:58 WBC 9.4 (4.8-10.8) X10*3/uL RBC 4.44 (4.20-5.50) X10*6/uL Hgb 13.2 (12.0-16.0) g/dl Hct 39.5 (37.0-47.0) % MCV 89.0 (80.0-98.0) fL MCH 29.7 (27.0-33.0) pg MCHC 33.4 (31.0-35.0) g/dl RDW 12.5 (11.0-16.0) % Plt Count 281 (160-400) X10*3/uL MPV 9.4 (9.4-12.3) fL Immature Gran % (Auto) 0.2 (0.0-0.4) % Neut % (Auto) 80.2 H (45-73) % Lymph % (Auto) 12.0 L (20-40) % [place] % (Auto) 7.1 (2-11) % Eos % (Auto) 0.1 (0-4) % Baso % (Auto) 0.4 (0-2) % Lymph # (Auto) 1.1 L (1.2-4.9) X10*3/uL [place] # (Auto) 0.7 (0.1-1.2) X10*3/uL Eos # (Auto) 0.0 (0.0-0.4) X10*3/uL Baso # (Auto) 0.0 (0.0-0.2) X10*3/uL Abs Immat Gran (auto) 0.02 (0.00-0.03) X10*3/uL Absolute Neuts (auto) 7.5 (2.0-8.3) x10*3/uL Absolute Nucleated RBC 0.000 (0.0-0.012) X10*3/uL Nucleated RBC % (auto) 0.0 (0.0-0.2) /100WBC Sodium 135 (135-145) mmol/L Potassium 4.6 (3.3-5.1) mmol/L Chloride 103 (96-108) mmol/L Carbon Dioxide 24 (22-29) mmol/L Anion Gap 13 (12-20) BUN 14 (9-16) mg/dL Creatinine 0.77 (0.5-1.4) mg/dL Estim Creat Clear Calc 134.5 Estimated GFR > 60 Random Glucose 102 (60-115) mg/dL Calcium 9.4 (8.4-10.2) mg/dL Magnesium 2.1 (1.6-2.6) mg/dL Total Bilirubin 0.3 (0.0-1.0) mg/dL Direct Bilirubin < 0.2 (0.0-0.5) mg/dL AST 18 (5-31) U/L ALT 19 (0-31) U/L Alkaline Phosphatase 95 (39-117) U/L Troponin I High Sens (<3.5-17.0) ng/L Total Protein 7.5 (6.5-8.0) g/dL Albumin 4.3 (3.5-5.0) g/dL Urine Color Urine Appearance Urine pH (5.0-9.0) Ur Specific [place] (1.005-1.025) Urine Protein (Neg-Trace) mg/dL Urine Glucose (UA) (Negative) mg/dL Urine Ketones (Negative) mg/dL Urine Blood (Negative) Urine Nitrite (Negative) Ur Leukocyte Esterase (Negative) Urine RBC (0-2) /HPF Urine WBC (0-5) /HPF Ur Squamous Epith Cells (0-2) /HPF Urine Bacteria (None Seen) Hyaline Casts (0-2) /LPF Influenza Type A (PCR) NEGATIVE (Negative) Influenza Type B (PCR) NEGATIVE (Negative) RSV RNA Qual (PCR) NEGATIVE (Negative) SARS-CoV-2 RNA (RT-PCR) NEGATIVE (Negative) 08/21/22 08/21/22 Range/Units 08:58 10:34 WBC (4.8-10.8) X10*3/uL RBC (4.20-5.50) X10*6/uL Hgb (12.0-16.0) g/dl Hct (37.0-47.0) % MCV (80.0-98.0) fL MCH (27.0-33.0) pg MCHC (31.0-35.0) g/dl RDW (11.0-16.0) % Plt Count (160-400) X10*3/uL MPV (9.4-12.3) fL Immature Gran % (Auto) (0.0-0.4) % Neut % (Auto) (45-73) % Lymph % (Auto) (20-40) % [place] % (Auto) (2-11) % Eos % (Auto) (0-4) % Baso % (Auto) (0-2) % Lymph # (Auto) (1.2-4.9) X10*3/uL [place] # (Auto) (0.1-1.2) X10*3/uL Eos # (Auto) (0.0-0.4) X10*3/uL Baso # (Auto) (0.0-0.2) X10*3/uL Abs Immat Gran (auto) (0.00-0.03) X10*3/uL Absolute Neuts (auto) (2.0-8.3) x10*3/uL Absolute Nucleated RBC (0.0-0.012) X10*3/uL Nucleated RBC % (auto) (0.0-0.2) /100WBC Sodium (135-145) mmol/L Potassium (3.3-5.1) mmol/L Chloride (96-108) mmol/L Carbon Dioxide (22-29) mmol/L Anion Gap (12-20) BUN (9-16) mg/dL Creatinine (0.5-1.4) mg/dL Estim Creat Clear Calc Estimated GFR Random Glucose (60-115) mg/dL Calcium (8.4-10.2) mg/dL Magnesium (1.6-2.6) mg/dL Total Bilirubin (0.0-1.0) mg/dL Direct Bilirubin (0.0-0.5) mg/dL AST (5-31) U/L ALT (0-31) U/L Alkaline Phosphatase (39-117) U/L Troponin I High Sens < 3.5 (<3.5-17.0) ng/L Total Protein (6.5-8.0) g/dL Albumin (3.5-5.0) g/dL Urine Color Yellow Urine Appearance Clear Urine pH 5.5 (5.0-9.0) Ur Specific [place] >= 1.030 H (1.005-1.025) Urine Protein Trace (Neg-Trace) mg/dL Urine Glucose (UA) Negative (Negative) mg/dL Urine Ketones 15 (Negative) mg/dL Urine Blood Small (1+) H (Negative) Urine Nitrite Negative (Negative) Ur Leukocyte Esterase Negative (Negative) Urine RBC 11-20 H (0-2) /HPF Urine WBC 0-5 (0-5) /HPF Ur Squamous Epith Cells 3-5 (0-2) /HPF Urine Bacteria Trace (None Seen) Hyaline Casts 0-2 (0-2) /LPF Influenza Type A (PCR) (Negative) Influenza Type B (PCR) (Negative) RSV RNA Qual (PCR) (Negative) SARS-CoV-2 RNA (RT-PCR) (Negative) ECG Data Attestation: I personally reviewed and interpreted this ECG as follows: Interpretation: EKG normal sinus rhythm at a rate of 90. Pr interval 154. QTC 445. No STEMI Discharge Plan Discharge Clinical Impression: Bronchitis Patient Disposition: Home, Self-Care Instructions: Acute Bronchitis (ED) Additional Instructions: Your blood work and x-ray were reassuring. She tested negative for COVID-19, flu, and RSV Azithromycin as antibiotic please take as prescribed. In addition Tessalon Perles for cough, take as needed. Flonase is a nasal decongestion. Please of close follow-up with her doctor, continue to use inhalers at home If symptoms persist or worsen return to the emergency department Prescriptions: New azithromycin 250 mg tablet See Rx Instructions .ROUTE .COMPLEX Qty: 6 0RF Rx Instructions: take 500 mg today (day 1), then 250 mg for 4 days (days 2-5) benzonatate 100 mg capsule 100 mg PO TID PRN (Reason: cough) Qty: 14 0RF albuterol sulfate 90 mcg/actuation HFA aerosol inhaler 2 puff inhalation Q4-6H PRN (Reason: shortness of breath or wheezing) Qty: 6.7 0RF fluticasone propionate [Flonase Allergy Relief] 50 mcg/actuation spray,suspension 2 spray intranasal DAILY Qty: 16 0RF Rx Instructions: administer into each nostril No Action albuterol sulfate 90 mcg/actuation HFA aerosol inhaler 2 puff inhalation Q6-8H PRN (Reason: shortness of breath or wheezing) Qty: 8.5 0RF albuterol sulfate 2.5 mg /3 mL (0.083 %) solution for nebulization 2.5 mg inhalation BID PRN (Reason: bronchospasm) 30 Days Qty: 75 4RF promethazine 25 mg tablet 25 mg PO TID PRN (Reason: nausea and vomiting) 7 Days Qty: 21 0RF omeprazole 40 mg capsule,delayed release(DR/EC) 40 mg PO DAILY 90 Days Qty: 90 3RF ibuprofen 600 mg tablet 600 mg PO Q6H PRN (Reason: Pain, Moderate) Qty: 30 0RF Flovent HFA 44 mcg/actuation HFA aerosol inhaler 1 puff inhalation BID Rx Instructions: administer with spacer montelukast 10 mg tablet 10 mg PO DAILY cetirizine 10 mg tablet 10 mg PO DAILY ibuprofen 600 mg tablet 600 mg PO Q8H PRN (Reason: pain) Qty: 30 0RF Referrals: Helen Arcos MD [Primary Care Provider] - 3 days Stand Alone Forms: Work/School Release
[2022-08-21 08:09] VITALS: BP 115/69; PULSE 106; RESP 14; TEMP 37.8; O2SAT 96
--- NOTE | 2022-08-21 08:25 | ECG_ITS ---
Test Reason : DISCOMFORT Blood Pressure : / mmHG Vent. Rate : 090 BPM Atrial Rate : 090 BPM P-R Int : 154 ms QRS Dur : 086 ms QT Int : 364 ms P-R-T Axes : 026 066 035 degrees QTc Int : 445 ms Normal sinus rhythm RSR' or QR pattern in V1 suggests right ventricular conduction delay Otherwise normal ECG Heart rate has increased Referred By: Nidia Paulson Electronically Signed By:ALCIDES FUENTES MD
[2022-08-21 08:53] VITALS: PULSE 89; RESP 18; O2SAT 96
[2022-08-21 09:03] LABS: MANUAL DIFF FLAG NO
[2022-08-21 09:10] LABS: Basophils Percent Auto 0.4 % (0-2); Eosinophils Percent Auto 0.1 % (0-4); Hematocrit 39.5 % (37.0-47.0); Hemoglobin 13.2 g/dl (12.0-16.0); Imm Gran Abs Auto 0.02 X10*3/uL (0.00-0.03); Imm Gran Pct Auto 0.2 % (0.0-0.4); Lymphocytes Absolute Auto 1.1 X10*3/uL (1.2-4.9); Mean Corpuscular HGB Conc 33.4 g/dl (31.0-35.0); Mean Corpuscular Hemoglobin 29.7 pg (27.0-33.0); Mean Platelet Volume 9.4 fL (9.4-12.3); Monocytes Absolute Auto 0.7 X10*3/uL (0.1-1.2); Monocytes Percent Auto 7.1 % (2-11); Neutrophils Absolute Auto 7.5 x10*3/uL (2.0-8.3); Neutrophils Percent Auto 80.2 % (45-73); Platelet Count 281 X10*3/uL (160-400); Red Blood Count 4.44 X10*6/uL (4.20-5.50); Red Cell Distribution Width 12.5 % (11.0-16.0); White Blood Count 9.4 X10*3/uL (4.8-10.8)
[2022-08-21 09:12] LABS: Influenza A PCR NEGATIVE (Negative); Influenza B PCR NEGATIVE (Negative); Resp Syncy Virus RNA Qual PCR NEGATIVE (Negative); SARS COV2 PCR INHOUSE NEGATIVE (Negative)
[2022-08-21] MEDS: 0.9 % Sodium Chloride 1,000 ML 999 ML IV (09:16)
[2022-08-21] MEDS: HYDROcodone/Homat 5/1.5/5 ML 5 ML SYRUP PO (09:16)
[2022-08-21] MEDS: Benzonatate 100 MG CAPSULE PO (09:16)
[2022-08-21] MEDS: Ketorolac Tromethamine 15 MG/ML VIAL IVPUSH (09:17)
[2022-08-21 09:31] LABS: Alanine Aminotransferase 19 U/L (0-31); Albumin Level 4.3 g/dL (3.5-5.0); Alkaline Phosphatase 95 U/L (39-117); Anion Gap 13 (12-20); Aspartate Amino Transferase 18 U/L (5-31); Bilirubin Direct < 0.2 mg/dL (0.0-0.5); Bilirubin Total 0.3 mg/dL (0.0-1.0); Blood Urea Nitrogen 14 mg/dL (9-16); Calcium 9.4 mg/dL (8.4-10.2); Carbon Dioxide 24 mmol/L (22-29); Chloride 103 mmol/L (96-108); Creatinine Clr Calc Pharmacy 134.5; Estimated Glomerular Filt Rate > 60; Glucose Random 102 mg/dL (60-115); Magnesium 2.1 mg/dL (1.6-2.6); Potassium 4.6 mmol/L (3.3-5.1); Sodium 135 mmol/L (135-145); Total Protein 7.5 g/dL (6.5-8.0)
[2022-08-21 09:43] LABS: Troponin-I High Sensitivity < 3.5 ng/L (<3.5-17.0)
[2022-08-21 10:30] VITALS: BP 105/67; PULSE 95; RESP 16; TEMP 36.4; O2SAT 99
[2022-08-21 10:48] LABS: Appearance Urine Clear; Color Urine Yellow; Glucose Urine UA Negative (Negative); Leukocyte Esterase Urine Negative (Negative); Nitrite Urine Negative (Negative); PH 5.5 (5.0-9.0); Specific Gravity - Urine >= 1.030 (1.005-1.025); UMIC TRIGGER UACC YES; Urine Blood Small (1+) (Negative); Urine Ketones 15 mg/dL (Negative); Urine Protein Trace mg/dL (Neg-Trace)
[2022-08-21 10:53] LABS: Bacteria Urine Trace (None Seen); Hyaline Casts Urine 0-2 /LPF (0-2); WBC Urine 0-5 /HPF (0-5)
== END 2022-08-21 11:36 | disposition home or self-care (01) ==
PROVIDERS: Physician Assistant; Emergency Provider Emergency Medicine; PCP Internal Medicine
DX: J40 Bronchitis, not specified as acute or chronic (principal); R50.9 Fever, unspecified; R00.0 Tachycardia, unspecified; Z20.822 Contact with and (suspected) exposure to COVID-19
CPT/HCPCS: 0241U; 36415; 71045; 80048; 80076; 81001; 83735; 84484; 85025; 93005; 94640; 96361; 96374; 99284; 99285; J1885

== ENCOUNTER → 2022-11-24 14:50 | Outpatient (BNVA) | payer OTHER, SELFPAY | PROVIDERS: PCP Internal Medicine; Visit Provider Physician Assistant Surgical | DX: Z13.89 Encounter for screening for other disorder (principal) ==

== ENCOUNTER → 2022-12-04 08:22 | Outpatient (BNVA) | payer OTHER, SELFPAY | PROVIDERS: PCP Internal Medicine; Visit Provider Physician Assistant Medical | DX: M54.50 Low back pain, unspecified (principal); R07.89 Other chest pain | CPT/HCPCS: 99202 ==

== ENCOUNTER → 2022-12-08 09:02 | Outpatient (BNVA) | payer OTHER, SELFPAY | PROVIDERS: PCP Internal Medicine; Visit Provider Internal Medicine | DX: S39.012D Strain of muscle, fascia and tendon of lower back, subsequent encounter (principal); X58.XXXD Exposure to other specified factors, subsequent encounter | CPT/HCPCS: 99213 ==

== ENCOUNTER → 2022-12-22 10:55 | Outpatient (BNVA) | payer OTHER, SELFPAY | PROVIDERS: PCP Internal Medicine; Visit Provider Internal Medicine | DX: M54.50 Low back pain, unspecified (principal) | CPT/HCPCS: 99213 ==

== ENCOUNTER → 2022-12-29 13:52 | Outpatient (BNVA) | payer OTHER, SELFPAY | PROVIDERS: PCP Internal Medicine; Visit Provider Internal Medicine | DX: M54.50 Low back pain, unspecified (principal) | CPT/HCPCS: 99213 ==

== ENCOUNTER 2023-01-04 12:00 | Outpatient (RCR) | payer OTHER, SELFPAY ==
--- NOTE | 2022-12-15 14:01 | MHC.PT.EP ---
[facility] [place] [facility] [place] [facility] [place] Office [address] Stephani Toure [address] [phone] F: [phone] F: [phone] F: [phone] F: [phone] Physical Therapy Plan of Care Date of Evaluation: Date of Surgery: NA Diagnosis: LUMBAR STRAIN Assessment: Pt IS 27 YO F REFERRED TO PT FROM (DR [place]) WITH LUMBAR STRAIN. PER SCRIPT, Pt HAS HAD PAIN FOR ABOUT 1 MONTH. Pt REPORTS HURT HER BACK 3-4 WKS AGO. 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 TO . MM RELAXER AT NIGHT. DURING DAY USES TYLENOL. PRESENTS WITH LIMITED TRUNK FLEXION, POOR ABDOMINAL STRENGTH, TIGHT LUMBAR PARASPINALS. 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 REPORTS NOT ONE SPECIFIC INCIDENT, BUT MORE OF AN OVERUSE PRESENTATION. SHOULD BENEFIT FROM PT TO ADDRESS THESE ISSUES Frequency and Duration: The patient will be seen 2X/WK X 4 WKS Short Term Goals: 1. INCREASED AWARENESS BACK CARE AND POSTURE 2. RTW 3. Pt TO PERF 2-3 TASKS WITH PROPER BODY MECH Loan Servicing Representative Goals: 1. I HEP WITH DC EX PLAN 2. DECREASED BACK PAIN AT LEAST 50% WITH ADLS 3. SUP>SIT WITH HANDS BEHIND HEAD Treatment Plan: Modalities to reduce pain, spasms and effusion. Manual therapy to restore motion and function. Therapeutic exercise to improve strength and flexibility. Neuromuscular re-education for posture and balance. Therapeutic activities to return to functional activities of daily living. Electronically signed by: ADRIAN DIOP PT Please sign and return to therapist. Thank you for your referral.
--- NOTE | 2023-01-26 12:33 | MHC.PT.DC ---
[facility] [place] Office [place] [facility] [place] Office [address] [phone] F: [phone] F: [phone] F: [phone] F: [phone] Physical Therapy Discharge Report Diagnosis: LUMBAR STRAIN Date of Surgery: NA Date of Evaluation: 12/15/22 Date of Discharge: 01/26/23 Treatments to Date: 6 Cancellations to Date: No Shows to Date: Discharge Status: Physician Discontinued Tx Discharge Summary: PER ASSESSMENT FROM LAST NOTE BY ANA MARIA FIERRO PTA ON 01/04/23 Pt tolerated exercises well without a increase in pain and had increased hamstring length observed during stretches. Pt had pain relief with IFC and hot back. . Pt THEN CANCELLED LAST 3 VISITS (ALOT OF PAIN). RECEIVED MESSAGE FROM [place] Pt. SHE WILL BE GOING TO PAIN MANAGEMENT Electronically signed by: ADRIAN DIOP PT Please sign and return to therapist. Thank you for your referral.
== END 2023-01-26 12:33 | disposition home or self-care (01) ==
LOC: HO.PT 12:00
PROVIDERS: PCP Internal Medicine; Visit Provider Internal Medicine
DX: M54.50 Low back pain, unspecified (principal)
CPT/HCPCS: 97014; 97110; 97140; 97161; 97530; 97535

== ENCOUNTER → 2023-01-09 09:28 | Outpatient (BNVA) | payer OTHER, SELFPAY | PROVIDERS: PCP Internal Medicine; Visit Provider Internal Medicine | DX: M54.42 Lumbago with sciatica, left side (principal) | CPT/HCPCS: 99213 ==

== ENCOUNTER → 2023-01-23 09:42 | Outpatient (BNVA) | payer OTHER, SELFPAY | PROVIDERS: PCP Internal Medicine; Visit Provider Internal Medicine | DX: M54.42 Lumbago with sciatica, left side (principal) | CPT/HCPCS: 99213 ==

== ENCOUNTER 2023-02-05 07:10 | Outpatient (REF) | payer OTHER, SELFPAY ==
--- NOTE | ~2023-02-05 | MR_ITS ---
EXAMINATION: MR LUMBAR SPINE WITHOUT CONTRAST CLINICAL INFORMATION: Lifting injury, left paraspinal, sciatica left leg COMPARISON: MRI lumbar spine 01/10/2022 TECHNIQUE: MRI of the lumbar spine was obtained using routine sequences without contrast. FINDINGS: Normal anatomic alignment. No suspicious marrow signal or focal osseous lesion. No significant marrow edema. The vertebral body heights are maintained. The intervertebral discs are of normal height and signal. The conus medullaris terminates at the level of L1. The distal spinal cord is normal in appearance. The cauda equina nerve roots appear normal. No significant abnormalities of the paraspinal musculature. Mild edema in the dorsal subcutaneous soft tissues. Limited evaluation of the intra-abdominal structures without significant abnormalities. The abdominal aorta is of normal contour and caliber. SPINAL LEVELS: T12-L1: No significant spinal canal or neural foraminal narrowing L1-L2: No significant spinal canal or neuroforaminal narrowing. L2-L3: No significant spinal canal or neuroforaminal narrowing. L3-L4: No significant spinal canal or neuroforaminal narrowing. Mild facet arthropathy. L4-L5: No significant spinal canal or neuroforaminal narrowing. Minimal disc bulge and mild facet arthropathy. L5-S1: No significant spinal canal or neuroforaminal narrowing. Mild facet arthropathy. MR/MR lumbar spine wo con IMPRESSION: Minimal degenerative changes of the lumbar spine appear stable compared to MRI from 01/10/2022. No significant spinal canal stenosis, neural foraminal narrowing, or evidence of nerve impingement.
== END 2023-02-05 07:11 | disposition home or self-care (01) ==
LOC: HO.MRI 07:10
PROVIDERS: PCP Internal Medicine; Visit Provider Internal Medicine
DX: M54.50 Low back pain, unspecified (principal)
CPT/HCPCS: 72148

== ENCOUNTER → 2023-02-09 12:52 | Outpatient (BNVA) | payer OTHER, SELFPAY | PROVIDERS: PCP Internal Medicine; Visit Provider Internal Medicine | DX: M54.42 Lumbago with sciatica, left side (principal) | CPT/HCPCS: 99213 ==

== ENCOUNTER → 2023-02-16 08:26 | Outpatient (BNVA) | payer OTHER, SELFPAY | PROVIDERS: PCP Internal Medicine; Visit Provider Internal Medicine | DX: M54.42 Lumbago with sciatica, left side (principal) | CPT/HCPCS: 99213 ==

== ENCOUNTER → 2023-03-05 08:24 | Outpatient (BNVA) | payer OTHER, SELFPAY | PROVIDERS: PCP Internal Medicine; Visit Provider Internal Medicine | DX: M54.50 Low back pain, unspecified (principal) | CPT/HCPCS: 99213 ==

== ENCOUNTER → 2023-03-19 08:30 | Outpatient (BNVA) | payer OTHER, SELFPAY | PROVIDERS: PCP Internal Medicine; Visit Provider Internal Medicine | DX: M54.9 Dorsalgia, unspecified (principal) | CPT/HCPCS: 99213 ==

== ENCOUNTER → 2023-04-05 12:41 | Outpatient (BNVA) | payer OTHER, SELFPAY | PROVIDERS: PCP Internal Medicine; Visit Provider Internal Medicine | DX: M54.50 Low back pain, unspecified (principal) | CPT/HCPCS: 99212; 99213 ==

== ENCOUNTER 2023-04-05 13:48 | Outpatient (AMB) | payer SELFPAY ==
--- NOTE | 2023-04-05 13:55 | MHC.OFFVIS ---
Intake Vital Signs 04/05/23 14:04 Height 5 ft 6 in Weight 243 lb 8 oz BMI 39.3 BP 137/80 Blood Pressure Location Rt brachial Position Sitting Pulse 94 Pulse Source Pulse Oximeter Pulse Oximetry (%) 96 Oxygen Delivery Method Room Air Intake Visit Reasons: DORSALGIA Intake Note: Patient here today due to an accident at work on 11/15/22. States that she is having increased back pain on the left side that radiates to her right side. Pain today 07/03. Supervisor Area Required: No Accompanied by: Self / Same As Patient Allergies No Known Allergies Allergy (Verified 04/05/23 14:03) HPI HPI Comments History of Present Illness Details Patient presents today for follow up for worsening back pain after recent work related injury in October. This is a Worker's Comp case. She was last seen in our office by Dr. Jhaveri for low back pain with discussion for diagnostic nerve blocks on 03/15/22 but reports back pain got better with conservative measures until her heavy lifting injury in October 2022. She completed physical therapy, tried NSAIDs, muscle relaxants, ice and heat therapy without significant function improvement or pain relief. She has been back to work on light duty and reports continues axial low back symptoms with radiations to both of her lower back sides, worse on the left. Her repeat lumbar spine MRI on 02/05/23 showed mild degenerative changes but no significant abnormalities in the lumbar spine. No significant spinal canal stenosis, neural foraminal narrowing, or evidence of nerve impingement. Denies any fever, abdominal or groin pain, bladder or bowel incontinence or saddle anesthesia. PRIOR: Sonya is here for the follow up after MRI for which she was sent after for initial appointment on which she complained on lower back pain with radiation into the left lower extremity on the surface of the posterior hip lateral thigh anterior knee but not below the level of the knee AND numbness on the inner thigh and inner lower leg which is exacerbated when her pain is very severe. She had physical therapy 1 month ago 8 sessions and she continues home exercise program. Reported minimal help with home exercise program and physical therapy however the pain returns 1-2 hours after she completes the exercises. The dictation of MRI is as below. She did not exhibit on the MRI any significant nerve root compressions foraminal or central canal stenosis, there were no any mass effect on the nerves. There is some significant arthritis and L4-5 disc bulging. Most likely her pain is related to arthritis. Her pain is mostly on the left side. [facility] Medical History Asthma Chronic pain syndrome Lumbar back pain with radiculopathy affecting left lower extremity Migraines Polyarthralgia Skin lesion Surgical History History of laparoscopic cholecystectomy History of tonsillectomy Family History Father Depression Mother No problems noted. Paternal Grandmother Chronic mental illness Maternal Grandmother Diabetes Hypertension Family/Other FH: mental illness Other Mental health disorder Social History Housing: Apartment Alcohol intake: current Alcohol intake frequency: holidays/special occasions only Alcohol type: beer and hard liquor Patient Tobacco Use Status: Never used Tobacco e-Cigarette/Vaping Use: Never Used Second Hand Smoke Exposure: No service: No Current occupational status: employed Current occupation: [employer]. Sexual orientation: Lesbian/Walter/Homosexual Gender identity: Female Cognitive needs: No Hearing needs: No Vision needs: Yes (Glasses) Female Reproductive History Menstrual Age of Menarche: 15 Review of Systems Const All systems reviewed & are unremarkable except as noted in HPI and below Physical Exam Vital Signs: Last Vital Signs Pulse 94 04/05/23 14:04 BP 137/80 04/05/23 14:04 Pulse Ox 96 04/05/23 14:04 Oxygen Delivery Method Room Air 04/05/23 14:04 BMI result Body Mass Index 39.3 General: Appears afebrile. Alert and oriented. Mood and affect appropriate. Follows and participates in conversation appropriately. Respiratory effort is unlabored. No cough. No nasal discharge. Able to transition from sit to stand unassisted. Ambulates with bilaterally normal heel strike and toe off. Back/Spine/Pelvis Other: Patient is able to walk and stand on heels and tip toes with no difficulties demonstrating good motor tone. No limping. Can flex forward to 65-75 degrees and extend to 5-10 degrees before experiencing lumbar pain, increased pain with lumbar extension and bending. Demonstrates 5/5 strength of quadriceps bilaterally as well as flexion/dorsiflexion of bilateral feet against resistance. 2+ pedal pulses bilaterally. Seated straight leg rise with dorsiflexion negative bilaterally. +2 patellar and achilles reflexes bilaterally. Facet loading test positive bilaterally. Yong sign, Luis Felipe?s, [place], Pelvic compression and Stinchfield tests are positive on the left, equivocal on the right. No groin pain with I/E hip rotations. Valsalva maneuver negative. Results Reviewed Results Reviewed: MR LUMBAR SPINE WITHOUT CONTRAST 02/05/23 CLINICAL INFORMATION: Lifting injury, left paraspinal, sciatica left leg COMPARISON: MRI lumbar spine 01/10/2022 FINDINGS: Normal anatomic alignment. No suspicious marrow signal or focal osseous lesion. No significant marrow edema. The vertebral body heights are maintained. The intervertebral discs are of normal height and signal. The conus medullaris terminates at the level of L1. The distal spinal cord is normal in appearance. The cauda equina nerve roots appear normal. No significant abnormalities of the paraspinal musculature. Mild edema in the dorsal subcutaneous soft tissues. Limited evaluation of the intra-abdominal structures without significant abnormalities. The abdominal aorta is of normal contour and caliber. SPINAL LEVELS: T12-L1: No significant spinal canal or neural foraminal narrowing L1-L2: No significant spinal canal or neuroforaminal narrowing. L2-L3: No significant spinal canal or neuroforaminal narrowing. L3-L4: No significant spinal canal or neuroforaminal narrowing. Mild facet arthropathy. L4-L5: No significant spinal canal or neuroforaminal narrowing. Minimal disc bulge and mild facet arthropathy. L5-S1: No significant spinal canal or neuroforaminal narrowing. Mild facet arthropathy. IMPRESSION: Minimal degenerative changes of the lumbar spine appear stable compared to MRI from 01/10/2022. No significant spinal canal stenosis, neural foraminal narrowing, or evidence of nerve impingement. Assessment & Plan Assessment & Plan (1) Spondylosis of lumbar region without myelopathy or radiculopathy: Code(s): M47.816 - Spondylosis without myelopathy or radiculopathy, lumbar region (2) Chronic pain syndrome: Code(s): G89.4 - Chronic pain syndrome (3) Muscle spasm of back: Code(s): M62.830 - Muscle spasm of back (4) Lumbar back pain with radiculopathy affecting left lower extremity: Code(s): M54.16 - Radiculopathy, lumbar region (5) Sacroiliac joint pain: Code(s): M53.3 - Sacrococcygeal disorders, not elsewhere classified Plan 1. Script provided for TENS unit via [employer] for back pain with muscle spasms and tenderness. 2. Schedule Diagnostic Bilateral L3-L4 DR L5 MBB with local and fluoroscopy for axial low back pain. If she has significant relief from the diagnostic blocks for her axial low back pain, will consider either therapeutic injections, Sprint PNS or RFA depending on her preference. 3. Scripts provided for lidocaine patches, methocarbamol, and diclofenac gel. Side effects and precautions reviewed with patient. Encouraged daily physical activity as tolerated, continue home exercise program, adequate hydration and weight loss. All questions and concerns have been answered and patient agreed with the plan. Anticoagulation: Patient not on anticoagulant Justification for interventional therapy: ? Patient with average pain > 6/10 ? Patient has exhausted conservative therapy, NSAIDs, physical therapy The risks, consequences, alternatives, and benefits of various treatment options were discussed with the patient in great detail, including conservative management, injections and procedures. Medications: New diclofenac sodium Take it with food and full glass of water. Avoid other NSAIDs. 50 mg PO TID 30 days PRN 60 tabs 0RF pain G89.4 - Chronic pain syndrome, M47.816 - Spondylosis without myelopathy or radiculopathy, lumbar region methocarbamol 750 mg PO BID 30 days PRN 60 tabs 3RF muscle spasm M47.816 - Spondylosis without myelopathy or radiculopathy, lumbar region, M62.830 - Muscle spasm of back Refilled lidocaine 4% (Aspercreme (lidocaine)) 1 patch topical DAILY PRN 30 ea 6RF pain M47.816 - Spondylosis without myelopathy or radiculopathy, lumbar region, M54.9 - Dorsalgia, unspecified Discontinued ibuprofen Discontinued Reason: Doctor's Order 600 mg PO Q8H PRN 20 tabs 0RF pain M54.9 - Dorsalgia, unspecified cyclobenzaprine Discontinued Reason: Patient Completed Course 5 mg PO BEDTIME PRN 14 tabs 0RF muscle spasm M54.9 - Dorsalgia, unspecified Coding Level of Care Code Est Pt Level 4 (27365) Diagnoses Spondylosis of lumbar region without myelopathy or radiculopathy M47.816 Chronic pain syndrome G89.4 Muscle spasm of back M62.830 Lumbar back pain with radiculopathy affecting left lower extremity M54.16 Sacroiliac joint pain M53.3
[2023-04-05 14:04] VITALS: BP 137/80; PULSE 94; O2SAT 96; BMI 39.3
== END 2023-04-05 14:23 | disposition home or self-care (01) ==
PROVIDERS: PCP Internal Medicine; Visit Provider Nurse Practitioner Family
DX: M47.816 Spondylosis without myelopathy or radiculopathy, lumbar region (principal); G89.4 Chronic pain syndrome; M62.830 Muscle spasm of back; M54.16 Radiculopathy, lumbar region; M53.3 Sacrococcygeal disorders, not elsewhere classified
CPT/HCPCS: 99214

== ENCOUNTER 2023-04-26 19:51 | Emergency (ER) | payer OTHER, SELFPAY ==
[2023-04-26 20:03] VITALS: BP 121/69; PULSE 82; RESP 18; TEMP 36.3; O2SAT 100; BMI 40.3
--- NOTE | 2023-04-26 20:03 | ED_ITS ---
HPI - General Adult General Chief complaint: Abdominal Pain Stated complaint: abd pain/n Time Seen by Provider: 04/26/23 21:43 Source: patient Mode of arrival: ambulatory Limitations: no limitations History of Present Illness HPI narrative: patient is status post cholecystectomy 3 years ago comes here for the pain in epigastric area for last 4 days associated with nausea no vomiting no diarrhea no fever no chills Related Data Home Medications Medication Instructions Recorded Confirmed cetirizine 10 mg tablet 10 mg PO DAILY 02/23/22 03/23/23 montelukast 10 mg tablet 10 mg PO DAILY 02/23/22 03/23/23 Previous Rx's Medication Instructions Recorded albuterol sulfate 2.5 mg/3 mL 2.5 mg (3 mL) inhalation BID PRN 06/05/22 (0.083 %) solution for nebulization bronchospasm 30 days #75 mL albuterol sulfate 90 mcg/actuation 2 puff inhalation Q4-6H PRN 08/21/22 aerosol inhaler shortness of breath or wheezing #6.7 grams omeprazole 40 mg capsule,delayed 40 mg PO DAILY 90 days #90 caps 10/05/22 release promethazine 25 mg tablet 25 mg PO TID PRN nausea and 10/05/22 vomiting 7 days #21 tabs sucralfate 1 gram tablet (Carafate) 1 g PO BID PRN abdominal pain 30 12/07/22 days #60 tabs diclofenac sodium 50 mg 50 mg PO TID PRN pain 30 days #60 04/05/23 tablet,delayed release tabs lidocaine 4 % topical patch 1 patch topical DAILY PRN pain #30 04/05/23 (Aspercreme (lidocaine)) ea methocarbamol 750 mg tablet 750 mg PO BID PRN muscle spasm 30 04/05/23 days #60 tabs ondansetron 4 mg disintegrating 4 mg PO Q6-8H PRN nausea and 04/27/23 tablet vomiting #7 tabs sucralfate 1 gram tablet 1 g PO TID #60 tabs 04/27/23 Allergies Allergy/AdvReac Type Severity Reaction Status Date / Time No Known Allergies Allergy Verified 04/26/23 20:03 Review of Systems Review of Systems: Yes all other systems are reviewed and are negative PMFSH Past Medical History Medical History Asthma Chronic pain syndrome Lumbar back pain with radiculopathy affecting left lower extremity Migraines Polyarthralgia Skin lesion Surgical History History of laparoscopic cholecystectomy History of tonsillectomy Family History Family History Father Depression Mother No problems noted. Paternal Grandmother Chronic mental illness Maternal Grandmother Diabetes Hypertension Family/Other FH: mental illness Other Mental health disorder Social History Social History Housing: Apartment Alcohol intake: current Alcohol intake frequency: holidays/special occasions only Alcohol type: beer and hard liquor Patient Tobacco Use Status: Never used Tobacco Smoked in Last 30 Days: No e-Cigarette/Vaping Use: Never Used Second Hand Smoke Exposure: No Use of substances other than those prescribed or required for medical reasons: No Advance Directives: No Advance Directives Information Provided: No Patient : No service: No Current occupational status: employed Current occupation: [employer]. Sexual orientation: Lesbian/Walter/Homosexual Gender identity: Female Cognitive needs: No Hearing needs: No Vision needs: Yes (Glasses) Physical Exam ED Vital Signs: Vital Signs - 24 hr 04/26/23 20:03 04/26/23 22:28 04/26/23 23:33 Temperature 97.4 F 98.3 F Pulse Rate 82 79 74 Respiratory Rate 18 14 18 Blood Pressure 121/69 118/79 113/75 Pulse Oximetry 100 100 100 Oxygen Delivery Method Room Air Room Air Room Air BMI result Body Mass Index 40.3 Appearance: Alert. Oriented X3. No acute distress. Eyes: no pallor/ icterus ENT: Pharynx normal. Oral Mucosa moist Neck: Normal inspection. Neck supple. CVS: Normal heart rate and rhythm. Pulses normal. Respiratory: No respiratory distress. Equal air entry bilateral, no wheezing/rales/rhonchi Abdomen: Soft mild epigastric tenderness no rebound tenderness or guarding Bowel sounds are present, no mass palpable, no CVA tenderness Skin: Skin warm and dry. Normal skin color. Normal skin turgor. Extremities: No lower extremity edema. No calf tenderness Neuro: Oriented X 3. No motor deficit. Course Course Course Narrative: This is a rapid medical exam: Additional HPI, ROS, PE not included below will be deferred to primary provider. Patient is a 28-year-old female with history of cholecystectomy presenting to the emergency department with complaint of abdominal pain since Sunday, decreased appetite/nausea. Denies vomiting. Abdomen is soft, mildly tender to palpation bilateral upper quadrants. Plan: labs, UA Medications Administered Discontinued Medications Generic Name Dose Route Start Last Admin Trade Name Freq PRN Reason Stop Dose Admin Al Hydroxide/Mg Hydroxide 30 ml 04/26/23 22:20 04/26/23 22:24 Magnesium Hydrox/Alum Hydrox 30 Ml Oral.Susp PO 04/26/23 22:21 30 ml ONCE ONE Administration Dicyclomine HCl 20 mg 04/26/23 23:16 04/26/23 23:36 Dicyclomine Hcl 10 Mg Capsule PO 04/26/23 23:17 20 mg ONCE ONE Administration Famotidine 20 mg 04/26/23 22:20 04/26/23 22:25 Famotidine 20 Mg Tablet PO 04/26/23 22:21 20 mg ONCE ONE Administration Ondansetron HCl 4 mg 04/26/23 22:20 04/26/23 22:26 Ondansetron Odt 4 Mg Tab.Rapdis TRANSLINGU 04/26/23 22:21 4 mg ONCE ONE Administration Medical Decision Making Medical Decision Making [facility] Narrative: patient has stable labs mild epigastric tenderness likely gastritis improved after Maalox discharged on PPI and sucralfate Differential Diagnosis Differential Diagnoses: The differential diagnosis associated with the presentation includes acute gastritis/pancreatitis/ UTI Lab Data [facility] Lab Attestation statement: I reviewed the patient's lab results. 04/26/23 20:13 04/26/23 20:13 Labs: Lab Results 04/26/23 04/26/23 04/26/23 Range/Units 20:13 20:13 20:47 WBC 6.4 (4.8-10.8) X10*3/uL RBC 4.13 L (4.20-5.50) X10*6/uL Hgb 12.2 (12.0-16.0) g/dl Hct 36.4 L (37.0-47.0) % MCV 88.1 (80.0-98.0) fL MCH 29.5 (27.0-33.0) pg MCHC 33.5 (31.0-35.0) g/dl RDW 12.4 (11.0-16.0) % Plt Count 295 (160-400) X10*3/uL MPV 9.2 L (9.4-12.3) fL Immature Gran % (Auto) 0.3 (0.0-0.4) % Neut % (Auto) 52.4 (45-73) % Lymph % (Auto) 36.6 (20-40) % [place] % (Auto) 7.3 (2-11) % Eos % (Auto) 2.5 (0-4) % Baso % (Auto) 0.9 (0-2) % Lymph # (Auto) 2.4 (1.2-4.9) X10*3/uL [place] # (Auto) 0.5 (0.1-1.2) X10*3/uL Eos # (Auto) 0.2 (0.0-0.4) X10*3/uL Baso # (Auto) 0.1 (0.0-0.2) X10*3/uL Abs Immat Gran (auto) 0.02 (0.00-0.03) X10*3/uL Absolute Neuts (auto) 3.4 (2.0-8.3) x10*3/uL Absolute Nucleated RBC 0.000 (0.0-0.012) X10*3/uL Nucleated RBC % (auto) 0.0 (0.0-0.2) /100WBC Sodium 140 (135-145) mmol/L Potassium 4.3 (3.3-5.1) mmol/L Chloride 108 (96-108) mmol/L Carbon Dioxide 24 (22-29) mmol/L Anion Gap 12 (12-20) BUN 18 H (9-16) mg/dL Creatinine 0.80 (0.5-1.4) mg/dL Estim Creat Clear Calc 131.4 Estimated GFR > 60 Random Glucose 92 (60-115) mg/dL Calcium 9.4 (8.4-10.2) mg/dL Total Bilirubin 0.2 (0.0-1.0) mg/dL AST 16 (5-31) U/L ALT 16 (0-31) U/L Alkaline Phosphatase 84 (39-117) U/L Total Protein 7.4 (6.5-8.0) g/dL Albumin 4.0 (3.5-5.0) g/dL Lipase 26 (8-78) U/L Beta HCG, Quant < 2 mIU/mL Urine Color Yellow Urine Appearance Clear Urine pH 6.5 (5.0-9.0) Ur Specific [place] 1.025 (1.005-1.025) Urine Protein Negative (Neg-Trace) mg/dL Urine Glucose (UA) Negative (Negative) mg/dL Urine Ketones Trace (Negative) mg/dL Urine Blood Moderate (2+) H (Negative) Urine Nitrite Negative (Negative) Ur Leukocyte Esterase Negative (Negative) Urine RBC >20 H (0-2) /HPF Urine WBC 0-5 (0-5) /HPF Ur Squamous Epith Cells 0-2 (0-2) /HPF Urine Bacteria None Seen (None Seen) Hyaline Casts 0-2 (0-2) /LPF Discharge Plan Discharge Clinical Impression: Epigastric pain Patient Disposition: Home, Self-Care Instructions: Gastritis (ED) Additional Instructions: your pain likely from gastritis continue omeprazole will give with sucralfate 1 tablet before meals as needed for the pain and Zofran for nausea avoid fried food follow with PCP Prescriptions: New sucralfate 1 gram tablet 1 g PO TID Qty: 60 0RF ondansetron 4 mg tablet,disintegrating 4 mg PO Q6-8H PRN (Reason: nausea and vomiting) Qty: 7 0RF No Action albuterol sulfate 2.5 mg /3 mL (0.083 %) solution for nebulization 2.5 mg inhalation BID PRN (Reason: bronchospasm) 30 Days Qty: 75 4RF sucralfate [Carafate] 1 gram tablet 1 g PO BID PRN (Reason: abdominal pain) 30 Days Qty: 60 0RF albuterol sulfate 90 mcg/actuation HFA aerosol inhaler 2 puff inhalation Q4-6H PRN (Reason: shortness of breath or wheezing) Qty: 6.7 0RF montelukast 10 mg tablet 10 mg PO DAILY cetirizine 10 mg tablet 10 mg PO DAILY promethazine 25 mg tablet 25 mg PO TID PRN (Reason: nausea and vomiting) 7 Days Qty: 21 0RF omeprazole 40 mg capsule,delayed release(DR/EC) 40 mg PO DAILY 90 Days Qty: 90 3RF diclofenac sodium 50 mg tablet,delayed release (DR/EC) 50 mg PO TID PRN (Reason: pain) 30 Days Qty: 60 0RF Rx Instructions: Take it with food and full glass of water. Avoid other NSAIDs. lidocaine [Aspercreme (lidocaine)] 4 % adhesive patch,medicated 1 patch topical DAILY PRN (Reason: pain) Qty: 30 6RF methocarbamol 750 mg tablet 750 mg PO BID PRN (Reason: muscle spasm) 30 Days Qty: 60 3RF Stand Alone Forms: Work/School Release Interventions: ED Discharge Assessment Last Done: 04/27/23 00:39 Discharge Date/Time: 04/27/23 00:39
[2023-04-26 20:17] LABS: MANUAL DIFF FLAG NO
[2023-04-26 20:25] LABS: Basophils Absolute Auto 0.1 X10*3/uL (0.0-0.2); Basophils Percent Auto 0.9 % (0-2); Eosinophils Absolute Auto 0.2 X10*3/uL (0.0-0.4); Eosinophils Percent Auto 2.5 % (0-4); Hematocrit 36.4 % (37.0-47.0); Hemoglobin 12.2 g/dl (12.0-16.0); Imm Gran Abs Auto 0.02 X10*3/uL (0.00-0.03); Imm Gran Pct Auto 0.3 % (0.0-0.4); Lymphocytes Absolute Auto 2.4 X10*3/uL (1.2-4.9); Lymphocytes Percent Auto 36.6 % (20-40); Mean Corpuscular HGB Conc 33.5 g/dl (31.0-35.0); Mean Corpuscular Hemoglobin 29.5 pg (27.0-33.0); Mean Corpuscular Volume 88.1 fL (80.0-98.0); Mean Platelet Volume 9.2 fL (9.4-12.3); Monocytes Absolute Auto 0.5 X10*3/uL (0.1-1.2); Monocytes Percent Auto 7.3 % (2-11); Neutrophils Absolute Auto 3.4 x10*3/uL (2.0-8.3); Neutrophils Percent Auto 52.4 % (45-73); Platelet Count 295 X10*3/uL (160-400); Red Blood Count 4.13 X10*6/uL (4.20-5.50); Red Cell Distribution Width 12.4 % (11.0-16.0); White Blood Count 6.4 X10*3/uL (4.8-10.8)
[2023-04-26 20:58] LABS: Alanine Aminotransferase 16 U/L (0-31); Alkaline Phosphatase 84 U/L (39-117); Anion Gap 12 (12-20); Aspartate Amino Transferase 16 U/L (5-31); Bilirubin Total 0.2 mg/dL (0.0-1.0); Blood Urea Nitrogen 18 mg/dL (9-16); Calcium 9.4 mg/dL (8.4-10.2); Carbon Dioxide 24 mmol/L (22-29); Chloride 108 mmol/L (96-108); Creatinine Clr Calc Pharmacy 131.4; Estimated Glomerular Filt Rate > 60; Glucose Random 92 mg/dL (60-115); Lipase 26 U/L (8-78); Potassium 4.3 mmol/L (3.3-5.1); Sodium 140 mmol/L (135-145); Total Protein 7.4 g/dL (6.5-8.0)
[2023-04-26 21:04] LABS: Appearance Urine Clear; Color Urine Yellow; Glucose Urine UA Negative (Negative); Leukocyte Esterase Urine Negative (Negative); Nitrite Urine Negative (Negative); PH 6.5 (5.0-9.0); Specific Gravity - Urine 1.025 (1.005-1.025); UMIC TRIGGER UACC YES; Urine Blood Moderate (2+) (Negative); Urine Ketones Trace mg/dL (Negative); Urine Protein Negative (Neg-Trace)
[2023-04-26 21:16] LABS: HCG Quantitative < 2 mIU/mL
[2023-04-26 21:22] LABS: Bacteria Urine None Seen (None Seen); Hyaline Casts Urine 0-2 /LPF (0-2); RBC Urine >20 /HPF (0-2); Squamous Epithelial Cell Urine 0-2 /HPF (0-2); WBC Urine 0-5 /HPF (0-5)
[2023-04-26] MEDS: Magnesium Hydrox/Alum Hydrox 30 ML ORAL.SUSP PO (22:24)
[2023-04-26] MEDS: Famotidine 20 MG TABLET PO (22:25)
[2023-04-26] MEDS: Ondansetron ODT 4 MG TAB.RAPDIS TRANSLINGU (22:26)
[2023-04-26 22:28] VITALS: BP 118/79; PULSE 79; RESP 14; O2SAT 100
[2023-04-26 23:33] VITALS: BP 113/75; PULSE 74; RESP 18; TEMP 36.8; O2SAT 100
[2023-04-26] MEDS: Dicyclomine HCl 10 MG CAPSULE 20 MG PO (23:36)
--- NOTE | 2023-04-26 23:42 | MHC.EDTECH ---
This tech assumed care of patient at 2300,vitals taken and patient is resting comfortably at this time and call [facility] within reach.
== END 2023-04-27 00:39 | disposition home or self-care (01) ==
PROVIDERS: Registered Nurse Emergency; Emergency Provider Internal Medicine; PCP Internal Medicine
DX: R10.13 Epigastric pain (principal); Z79.899 Other long term (current) drug therapy
CPT/HCPCS: 36415; 80053; 81001; 81003; 83690; 84702; 85025; 99283; 99284

== ENCOUNTER 2023-05-14 15:09 | Emergency (ER) | payer OTHER, SELFPAY ==
--- NOTE | ~2023-05-14 | CT_ITS ---
EXAMINATION: CT ABDOMEN AND PELVIS WITH CONTRAST CLINICAL INFORMATION: Right lower quadrant pain. Rule out appendicitis. COMPARISON: None available. TECHNIQUE: Multidetector volumetric images were obtained from the superior aspect of the liver through the pubic symphysis following administration 85 mL of Omnipaque 350 intravenous contrast. Sagittal and coronal reformatted images were obtained on the technologist's workstation. Oral contrast: No This CT examination was performed using dose optimization techniques as appropriate, variously including the following: *Automated exposure control *Adjustment of mA and/or kV according to patient size (this includes techniques or standardized protocols for targeted exams where dose is matched to indication/reason for exam; i.e. extremities or head) *Use of iterative reconstruction technique DLP: 902 mGy-cm FINDINGS: LUNG BASES: The visualized lung bases are unremarkable. LIVER, GALLBLADDER, AND BILIARY TREE: The liver is normal in size, shape, and attenuation. No focal hepatic lesion or biliary ductal dilatation is present. Gallbladder surgically absent. PANCREAS: Unremarkable. SPLEEN: Unremarkable. ADRENAL GLANDS: Unremarkable. KIDNEYS AND URETERS: The kidneys are normal in size, shape, and attenuation. No hydronephrosis, hydroureter, or calculi seen. Small subcentimeter foci of cortical hypoattenuation kidneys are too small to characterize, though statistically favored to correspond to simple cysts. No recommended imaging follow-up. No perinephric stranding. BLADDER: Unremarkable. GASTROINTESTINAL TRACT: Stomach, small bowel, and colon are normal in caliber. No bowel wall thickening or surrounding inflammatory changes. Appendix is normal. No intraperitoneal free fluid or free air. ABDOMINAL WALL: No significant hernia is appreciated. LYMPH NODES: Normal. VASCULAR: Unremarkable. PELVIC VISCERA: Nabothian cysts are present within the lower uterine segment. There is a corpus luteum at the right ovary. No recommend imaging follow-up. OSSEOUS STRUCTURES: No acute osseous findings. Lumbar spine appears relatively well-preserved. CT/CT abdomen pelvis w IV con IMPRESSION: No acute intra-abdominal or intrapelvic abnormalities. Normal appendix. Fleischner guidelines were followed.
[2023-05-14 16:28] VITALS: BP 113/79; PULSE 79; RESP 18; TEMP 36; O2SAT 100; BMI 39.6
--- NOTE | 2023-05-14 16:38 | ED_ITS ---
HPI - Nausea/Vomiting/Diarrhea General Chief complaint: Abdominal Pain Stated complaint: vomiting, chills Time Seen by Provider: 05/14/23 20:49 Source: patient Mode of arrival: ambulatory Limitations: no limitations History of Present Illness HPI Narrative: 28-year-old female with no major medical problems presents with abdominal pain, nausea, vomiting and diarrhea. Patient has had a month of intermittent abdom inal pain. Usually on the right side. Is not clearly exacerbated by eating or drinking. She does note that due to the pain she has had decreased oral intake and lack of an appetite. She has had no fever or chills with these symptoms. However over last 24 hours she has developed nausea, vomiting and diarrhea. She has had chills and sweats. It is associated with right-sided abdominal pain. T here has been no blood in the stool or vomitus. There is no clear relieving or exacerbating features. There is no prior treatment today. In the past, her abdominal pain has been improved with naproxen. Related Data Home Medications Medication Instructions Recorded Confirmed cetirizine 10 mg tablet 10 mg PO DAILY 02/23/22 03/23/23 montelukast 10 mg tablet 10 mg PO DAILY 02/23/22 03/23/23 Previous Rx's Medication Instructions Recorded albuterol sulfate 2.5 mg/3 mL 2.5 mg (3 mL) inhalation BID PRN 06/05/22 (0.083 %) solution for nebulization bronchospasm 30 days #75 mL albuterol sulfate 90 mcg/actuation 2 puff inhalation Q4-6H PRN 08/21/22 aerosol inhaler shortness of breath or wheezing #6.7 grams omeprazole 40 mg capsule,delayed 40 mg PO DAILY 90 days #90 caps 10/05/22 release promethazine 25 mg tablet 25 mg PO TID PRN nausea and 10/05/22 vomiting 7 days #21 tabs sucralfate 1 gram tablet (Carafate) 1 g PO BID PRN abdominal pain 30 12/07/22 days #60 tabs diclofenac sodium 50 mg 50 mg PO TID PRN pain 30 days #60 04/05/23 tablet,delayed release tabs lidocaine 4 % topical patch 1 patch topical DAILY PRN pain #30 04/05/23 (Aspercreme (lidocaine)) ea methocarbamol 750 mg tablet 750 mg PO BID PRN muscle spasm 30 04/05/23 days #60 tabs ondansetron 4 mg disintegrating 4 mg PO Q6-8H PRN nausea and 04/27/23 tablet vomiting #7 tabs sucralfate 1 gram tablet 1 g PO TID #60 tabs 04/27/23 metoclopramide HCl 10 mg tablet 10 mg PO Q6H #20 tabs 05/14/23 Allergies Allergy/AdvReac Type Severity Reaction Status Date / Time No Known Allergies Allergy Verified 05/14/23 16:28 Review of Systems Review of Systems: CONSTITUTIONAL: Denies weight loss, fever and chills. HEENT: Denies changes in vision and hearing. RESPIRATORY: Denies SOB and cough. CV: Denies palpitations no CP. GI: + abdominal pain, nausea, vomiting and diarrhea. : Denies dysuria and urinary frequency. MSK: Denies myalgia and joint pain. SKIN: Denies rash and pruritus. NEUROLOGICAL: Denies headache and syncope. PSYCHIATRIC: Denies recent changes in mood. Denies anxiety and depression. All other ROS are negative unless in HPI PMFSH Past Medical History Medical History Asthma Chronic pain syndrome Lumbar back pain with radiculopathy affecting left lower extremity Migraines Polyarthralgia Skin lesion Surgical History History of laparoscopic cholecystectomy History of tonsillectomy Family History Family History Father Depression Mother No problems noted. Paternal Grandmother Chronic mental illness Maternal Grandmother Diabetes Hypertension Family/Other FH: mental illness Other Mental health disorder Social History Social History Housing: Apartment Alcohol intake: current Alcohol intake frequency: holidays/special occasions only Alcohol type: beer and hard liquor Patient Tobacco Use Status: Never used Tobacco Smoked in Last 30 Days: No e-Cigarette/Vaping Use: Never Used Second Hand Smoke Exposure: No Use of substances other than those prescribed or required for medical reasons: No Advance Directives: No Advance Directives Information Provided: Yes Patient : No service: No Current occupational status: employed Current occupation: [employer]. Sexual orientation: Lesbian/Walter/Homosexual Gender identity: Female Cognitive needs: No Hearing needs: No Vision needs: Yes (Glasses) Physical Exam Vital Signs: Vital Signs: Last Vital Signs Temp 96.8 F 05/14/23 16:28 Pulse 79 05/14/23 16:28 Resp 18 05/14/23 16:28 BP 113/79 05/14/23 16:28 Pulse Ox 100 05/14/23 16:28 O2 Del Method Room Air 05/14/23 16:28 BMI result Body Mass Index 39.6 GEN: Well developed, no acute distress, alert, oriented HEENT: Normocephalic, atraumatic, normal external ears, nose appears normal, no oropharyngeal edema or exudates Eyes: Normal to appearance Neck: Supple, no lymphadenopathy Respiratory: Talks in complete sentences, no respiratory distress, clear to auscultation bilaterally Cardiovascular: Regular rate and rhythm, no murmurs rubs or gallops Abdomen: Soft, Right lower quadrant tenderness, nondistended, no guarding, no rebound Back: No CVA tenderness Extremities: No clubbing cyanosis or edema Neurologic: No focal neurologic deficits, cranial nerves 2-12 intact, strength is 5/5 bilaterally Skin: No rash Course Course Course Narrative: This is an RME: Additional HPI, ROS, PE not included below will be deferred to primary provider. This is a [id number] with complaints of dizziness, abdominal pain, nausea, vomiting, and diarrhea. She has had abdominal pain x 1 month, diarrhea since yesterday. Abdomen is soft, mild tenderness to palpation in the right mid quadrant. Vital signs stable, patient is afebrile. She was seen at the beginning of the month and was diagnosed with gastritis. She took the medications that were prescribed to her which provided her with no relief. Admits to having some pain with urination. Plan: Labs, UA Reevaluation(s) Reevaluation #1: the workup is complete. CT the abdomen and pelvis did not reveal any acute etiology for symptoms. I will place the patient on Reglan 4 times daily to be taken 30 minutes before meals and before bedtime. I will refer the patient to gastroenterology. Time: 23:05 Medications Administered Discontinued Medications Generic Name Dose Route Start Last Admin Trade Name Freq PRN Reason Stop Dose Admin Sodium Chloride 1,000 mls @ 999 mls/hr 05/14/23 21:15 05/14/23 22:29 Ns IV 05/14/23 22:15 Infused .Q1H1M BRITTANY Infusion Iohexol 100 ml 05/14/23 21:48 05/14/23 21:49 Iohexol 350 Mg/Ml 100 Ml Infus..Btl IV 05/14/23 21:49 85 ml ONCE ONE Administration Ketorolac Tromethamine 15 mg 05/14/23 21:10 05/14/23 21:24 Ketorolac Tromethamine 15 Mg/Ml Vial IVPUSH 05/14/23 21:11 15 mg ONCE ONE Administration Ondansetron HCl 4 mg 05/14/23 21:10 05/14/23 21:24 Ondansetron Hcl 4 Mg/2 Ml Vial IVPUSH 05/14/23 21:11 4 mg ONCE ONE Administration Medical Decision Making Medical Decision Making [facility] Narrative: 28-year-old female presents with abdominal pain, nausea, vomiting and diarrhea. Physical exam findings identified right lower quadrant tenderness, no rebound or guarding. Differential diagnosis includes enteritis, gastroenteritis, colitis, diverticulitis, IBD, IBS, appendicitis, bacterial overgrowth, mesenteric adenitis, epiploic appendagitis. Plan to obtain a CT scan to rule out the above differential diagnosis. Will obtain routine lab testing. Will also provide patient with antiemetics, analgesia and IV fluids. Differential Diagnosis Differential Diagnoses: The differential diagnosis associated with the presentation includes ( See above) Admission/Observation Consideration of admission/observation: Escalation of care including admission/observation considered Lab Data [facility] Lab Attestation statement: I reviewed the patient's lab results. 05/14/23 17:19 05/14/23 17:19 Labs: Lab Results 05/14/23 05/14/23 Range/Units 17:19 17:19 WBC 15.7 H (4.8-10.8) X10*3/uL RBC 4.67 (4.20-5.50) X10*6/uL Hgb 13.9 (12.0-16.0) g/dl Hct 40.6 (37.0-47.0) % MCV 86.9 (80.0-98.0) fL MCH 29.8 (27.0-33.0) pg MCHC 34.2 (31.0-35.0) g/dl RDW 12.8 (11.0-16.0) % Plt Count 292 (160-400) X10*3/uL MPV 9.3 L (9.4-12.3) fL Immature Gran % (Auto) 0.4 (0.0-0.4) % Neut % (Auto) 83.9 H (45-73) % Lymph % (Auto) 7.6 L (20-40) % [place] % (Auto) 7.0 (2-11) % Eos % (Auto) 0.8 (0-4) % Baso % (Auto) 0.3 (0-2) % Lymph # (Auto) 1.2 (1.2-4.9) X10*3/uL [place] # (Auto) 1.1 (0.1-1.2) X10*3/uL Eos # (Auto) 0.1 (0.0-0.4) X10*3/uL Baso # (Auto) 0.1 (0.0-0.2) X10*3/uL Abs Immat Gran (auto) 0.06 H (0.00-0.03) X10*3/uL Absolute Neuts (auto) 13.2 H (2.0-8.3) x10*3/uL Absolute Nucleated RBC 0.000 (0.0-0.012) X10*3/uL Nucleated RBC % (auto) 0.0 (0.0-0.2) /100WBC Sodium 140 (135-145) mmol/L Potassium 5.2 H D (3.3-5.1) mmol/L Chloride 109 H (96-108) mmol/L Carbon Dioxide 21 L (22-29) mmol/L Anion Gap 15 (12-20) BUN 18 H (9-16) mg/dL Creatinine 0.75 (0.5-1.4) mg/dL Estim Creat Clear Calc 143.7 Estimated GFR > 60 Random Glucose 101 (60-115) mg/dL Calcium 9.9 (8.4-10.2) mg/dL Magnesium 2.4 (1.6-2.6) mg/dL Total Bilirubin 0.2 (0.0-1.0) mg/dL Direct Bilirubin < 0.2 (0.0-0.5) mg/dL AST 19 (5-31) U/L ALT 19 (0-31) U/L Alkaline Phosphatase 87 (39-117) U/L Total Protein 8.0 (6.5-8.0) g/dL Albumin 4.4 (3.5-5.0) g/dL Lipase 21 (8-78) U/L Beta HCG, Quant < 2 mIU/mL leukocytosis Independent Interpretation I performed an independent interpretation of an: CT Scan ( abdomen pelvis no acute findings) Radiology Impression Discussion of test interpretation with radiology: I have reviewed the radiolog ist's reading. Radiologist Impression: CT/CT abdomen pelvis w IV con IMPRESSION: No acute intra-abdominal or intrapelvic abnormalities. Normal appendix. ? Fleischner guidelines were followed. Dictated By: n Signed By: <Electronically signed by n in OV> 05/14/23 [id number] Prescription Management I considered prescription management with: Pain Medication Discharge Plan Discharge Clinical Impression: Abdominal pain Patient Disposition: Home, Self-Care Instructions: Abdominal Pain (ED) Prescriptions: New metoclopramide HCl 10 mg tablet 10 mg PO Q6H Qty: 20 0RF Rx Instructions: take 30 minutes before each meal and 30 minutes before bedtime No Action albuterol sulfate 2.5 mg /3 mL (0.083 %) solution for nebulization 2.5 mg inhalation BID PRN (Reason: bronchospasm) 30 Days Qty: 75 4RF sucralfate [Carafate] 1 gram tablet 1 g PO BID PRN (Reason: abdominal pain) 30 Days Qty: 60 0RF albuterol sulfate 90 mcg/actuation HFA aerosol inhaler 2 puff inhalation Q4-6H PRN (Reason: shortness of breath or wheezing) Qty: 6.7 0RF sucralfate 1 gram tablet 1 g PO TID Qty: 60 0RF ondansetron 4 mg tablet,disintegrating 4 mg PO Q6-8H PRN (Reason: nausea and vomiting) Qty: 7 0RF montelukast 10 mg tablet 10 mg PO DAILY cetirizine 10 mg tablet 10 mg PO DAILY promethazine 25 mg tablet 25 mg PO TID PRN (Reason: nausea and vomiting) 7 Days Qty: 21 0RF omeprazole 40 mg capsule,delayed release(DR/EC) 40 mg PO DAILY 90 Days Qty: 90 3RF diclofenac sodium 50 mg tablet,delayed release (DR/EC) 50 mg PO TID PRN (Reason: pain) 30 Days Qty: 60 0RF Rx Instructions: Take it with food and full glass of water. Avoid other NSAIDs. lidocaine [Aspercreme (lidocaine)] 4 % adhesive patch,medicated 1 patch topical DAILY PRN (Reason: pain) Qty: 30 6RF methocarbamol 750 mg tablet 750 mg PO BID PRN (Reason: muscle spasm) 30 Days Qty: 60 3RF Referrals: Arsh Zhang [Physician] - 10 days
[2023-05-14 17:21] LABS: MANUAL DIFF FLAG NO
[2023-05-14 17:23] LABS: Basophils Absolute Auto 0.1 X10*3/uL (0.0-0.2); Basophils Percent Auto 0.3 % (0-2); Eosinophils Absolute Auto 0.1 X10*3/uL (0.0-0.4); Eosinophils Percent Auto 0.8 % (0-4); Hematocrit 40.6 % (37.0-47.0); Hemoglobin 13.9 g/dl (12.0-16.0); Imm Gran Abs Auto 0.06 X10*3/uL (0.00-0.03); Imm Gran Pct Auto 0.4 % (0.0-0.4); Lymphocytes Absolute Auto 1.2 X10*3/uL (1.2-4.9); Lymphocytes Percent Auto 7.6 % (20-40); Mean Corpuscular HGB Conc 34.2 g/dl (31.0-35.0); Mean Corpuscular Hemoglobin 29.8 pg (27.0-33.0); Mean Corpuscular Volume 86.9 fL (80.0-98.0); Mean Platelet Volume 9.3 fL (9.4-12.3); Monocytes Absolute Auto 1.1 X10*3/uL (0.1-1.2); Neutrophils Absolute Auto 13.2 x10*3/uL (2.0-8.3); Neutrophils Percent Auto 83.9 % (45-73); Platelet Count 292 X10*3/uL (160-400); Red Blood Count 4.67 X10*6/uL (4.20-5.50); Red Cell Distribution Width 12.8 % (11.0-16.0); White Blood Count 15.7 X10*3/uL (4.8-10.8)
[2023-05-14 17:58] LABS: Alanine Aminotransferase 19 U/L (0-31); Albumin Level 4.4 g/dL (3.5-5.0); Alkaline Phosphatase 87 U/L (39-117); Anion Gap 15 (12-20); Aspartate Amino Transferase 19 U/L (5-31); Bilirubin Direct < 0.2 mg/dL (0.0-0.5); Bilirubin Total 0.2 mg/dL (0.0-1.0); Blood Urea Nitrogen 18 mg/dL (9-16); Calcium 9.9 mg/dL (8.4-10.2); Carbon Dioxide 21 mmol/L (22-29); Chloride 109 mmol/L (96-108); Creatinine Clr Calc Pharmacy 143.7; Estimated Glomerular Filt Rate > 60; Glucose Random 101 mg/dL (60-115); Lipase 21 U/L (8-78); Magnesium 2.4 mg/dL (1.6-2.6); Potassium 5.2 mmol/L (3.3-5.1); Sodium 140 mmol/L (135-145)
--- NOTE | 2023-05-14 20:50 | PC.NURSE ---
this Rn assumed care of patient at 2039, pt resting on stretcher at this time, respirations even and unlabored, skin pwd, no apparent distress. Pt reporting upper/mid abdominal pain x2 days. Diarrhea yesterday, vomiting today
[2023-05-14] MEDS: 0.9 % Sodium Chloride 1,000 ML 999 ML IV (21:24)
[2023-05-14] MEDS: ondansetron HCL 4 MG/2 ML VIAL IVPUSH (21:24)
[2023-05-14] MEDS: Ketorolac Tromethamine 15 MG/ML VIAL IVPUSH (21:24)
[2023-05-14 21:26] LABS: HCG Quantitative < 2 mIU/mL
[2023-05-14] MEDS: iohexoL 350 MG/ML 100 ML INFUS..BTL IV (21:49)
== END 2023-05-14 23:55 | disposition home or self-care (01) ==
PROVIDERS: Physician Assistant Medical; Emergency Provider Emergency Medicine; PCP Internal Medicine
DX: R10.31 Right lower quadrant pain (principal); R11.2 Nausea with vomiting, unspecified; R10.2 Pelvic and perineal pain; Z79.899 Other long term (current) drug therapy
CPT/HCPCS: 36415; 74177; 80048; 80076; 83690; 83735; 84702; 85025; 96361; 96374; 96375; 99284; J1885; J2405; Q9967

== ENCOUNTER 2023-07-25 19:34 | Emergency (ER) | payer SELFPAY ==
--- NOTE | ~2023-07-25 | XR_ITS ---
EXAMINATION: XR CHEST CLINICAL INFORMATION: Cough x3 weeks COMPARISON: 08/21/2022 TECHNIQUE: 2 views of the chest were obtained. FINDINGS: No significant abnormality is noted involving the heart, lungs, mediastinum, bony thorax or soft tissues. XR/XR chest 2V IMPRESSION: Unremarkable examination.
--- NOTE | 2023-07-25 19:38 | ECG_ITS ---
Test Reason : CHEST PAIN Blood Pressure : / mmHG Vent. Rate : 074 BPM Atrial Rate : 074 BPM P-R Int : 148 ms QRS Dur : 086 ms QT Int : 382 ms P-R-T Axes : 021 057 038 degrees QTc Int : 424 ms Normal sinus rhythm Low voltage QRS RSR' or QR pattern in V1 suggests right ventricular conduction delay Borderline ECG When compared with ECG of 21-AUG-2022 09:57, No significant change was found Referred By: Generic ED Physician Electronically Signed By:ALCIDES FUENTES MD
[2023-07-25 19:39] VITALS: BP 130/86; PULSE 86; RESP 20; TEMP 36.9; O2SAT 100; BMI 38.7
[2023-07-25 20:30] LABS: Influenza A PCR NEGATIVE (Negative); Influenza B PCR NEGATIVE (Negative); Resp Syncy Virus RNA Qual PCR NEGATIVE (Negative); SARS COV2 PCR INHOUSE NEGATIVE (Negative)
[2023-07-25 22:51] VITALS: BP 114/78; PULSE 78; RESP 18; TEMP 35.8; O2SAT 100
--- NOTE | 2023-07-25 23:56 | ED.GENADULT ---
HPI - General Adult General Chief complaint: Upper Respiratory Symptoms Stated complaint: chest pain, sob Time Seen by Provider: 07/25/23 23:33 Source: patient, RN notes reviewed and old records reviewed Mode of arrival: ambulatory Limitations: no limitations History of Present Illness HPI narrative: 28-year-old female presents for evaluation of cough, shortness of breath. Patient reports a history of asthma. She states that 3 weeks ago she had fevers, body aches, cough, shortness of breath, diarrhea. She states all of her symptoms have resolved but she still has a lingering cough for the last 3 weeks She denies any recent travel, leg swelling, history of DVT or PE Related Data Home Medications Medication Instructions Recorded Confirmed cetirizine 10 mg tablet 10 mg PO DAILY 02/23/22 03/23/23 montelukast 10 mg tablet 10 mg PO DAILY 02/23/22 03/23/23 Previous Rx's Medication Instructions Recorded albuterol sulfate 2.5 mg/3 mL 2.5 mg (3 mL) inhalation BID PRN 06/05/22 (0.083 %) solution for nebulization bronchospasm 30 days #75 mL albuterol sulfate 90 mcg/actuation 2 puff inhalation Q4-6H PRN 08/21/22 aerosol inhaler shortness of breath or wheezing #6.7 grams omeprazole 40 mg capsule,delayed 40 mg PO DAILY 90 days #90 caps 10/05/22 release promethazine 25 mg tablet 25 mg PO TID PRN nausea and 10/05/22 vomiting 7 days #21 tabs sucralfate 1 gram tablet (Carafate) 1 g PO BID PRN abdominal pain 30 12/07/22 days #60 tabs diclofenac sodium 50 mg 50 mg PO TID PRN pain 30 days #60 04/05/23 tablet,delayed release tabs lidocaine 4 % topical patch 1 patch topical DAILY PRN pain #30 04/05/23 (Aspercreme (lidocaine)) ea methocarbamol 750 mg tablet 750 mg PO BID PRN muscle spasm 30 04/05/23 days #60 tabs ondansetron 4 mg disintegrating 4 mg PO Q6-8H PRN nausea and 04/27/23 tablet vomiting #7 tabs sucralfate 1 gram tablet 1 g PO TID #60 tabs 04/27/23 metoclopramide HCl 10 mg tablet 10 mg PO Q6H #20 tabs 05/14/23 azithromycin 250 mg tablet See Rx Instructions PO .COMPLEX #6 07/25/23 tabs benzonatate 200 mg capsule 200 mg PO TID PRN cough #20 caps 07/25/23 prednisone 20 mg tablet 40 mg (2 x 20 mg) PO DAILY #10 tabs 07/25/23 Allergies Allergy/AdvReac Type Severity Reaction Status Date / Time No Known Allergies Allergy Verified 07/25/23 19:39 Review of Systems Constitutional: Constitutional: Denies fever(s) Eyes: Eyes: Denies blurry vision ENT: Denies sore throat Cardiovascular: Cardiovascular: Reports dyspnea Respiratory: Respiratory: Reports cough, Reports dyspnea and Reports wheezing Gastrointestinal: Gastrointestinal: Denies abdominal pain, Denies nausea and Denies vomiting Integumentary/Breasts: Skin/Breast: Denies rash Allergic/Immunologic: Allergic/Immunologic: Reports wheezing PMFSH Past Medical History Medical History Asthma Chronic pain syndrome Lumbar back pain with radiculopathy affecting left lower extremity Migraines Polyarthralgia Skin lesion Surgical History History of laparoscopic cholecystectomy History of tonsillectomy Family History Family History Father Depression Mother No problems noted. Paternal Grandmother Chronic mental illness Maternal Grandmother Diabetes Hypertension Family/Other FH: mental illness Other Mental health disorder Social History Social History Housing: Apartment Alcohol intake: current Alcohol intake frequency: holidays/special occasions only Alcohol type: beer and hard liquor Patient Tobacco Use Status: Never used Tobacco e-Cigarette/Vaping Use: Never Used Second Hand Smoke Exposure: No Advance Directives: No Advance Directives Information Provided: No service: No Current occupational status: employed Current occupation: [employer]. Sexual orientation: Lesbian/Walter/Homosexual Gender identity: Female Cognitive needs: No Hearing needs: No Vision needs: Yes (Glasses) Physical Exam ED Vital Signs: Vital Signs - 24 hr 07/25/23 19:39 07/25/23 22:51 Temperature 98.4 F 96.5 F L Pulse Rate 86 78 Respiratory Rate 20 18 Blood Pressure 130/86 114/78 Pulse Oximetry 100 100 Oxygen Delivery Method Room Air Room Air BMI result Body Mass Index 38.7 Const General: healthy appearing, comfortable, no acute distress, alert and awake Nutritional Appearance: well nourished Orientation/consciousness: patient oriented x3 HENMT Head: Yes normocephalic and Yes atraumatic Eyes Eyelids: Yes eyelids normal Conjunctivae: conjunctivae normal Sclerae: sclerae normal Corneas: corneas normal Pupils: Equal, round and reactive pupils present EOM: EOMs intact bilaterally Neck Neck: Yes full ROM Resp Effort & Inspection: normal respiratory effort, able to speak in complete sentences, no audible wheezes and not labored Auscultation: clear to auscultation bilaterally GI Inspection: No distended Palpation (GI): Soft to palpation, not firm, nontender, no guarding and not rigid Skin General skin exam: elasticity normal Neuro General: patient oriented x3 Cranial nerves: Yes Equal, round and reactive pupils present and Yes Bilaterally intact EOM present Cognition (Neuro): normal cognition Extrem Other: Moving all extremities well without any obvious deformities Medical Decision Making Medical Decision Making MDM Narrative: 28-year-old female with history of asthma presents for evaluation of cough for last 3 weeks. She is PERC negative. Chest x-ray was out pneumonia as well as pulmonary edema. She is not wheezy on exam this is what looks to be in asthma exacerbation. Will treat for upper respiratory infection given duration or symptoms. Her vital signs are currently stable Differential Diagnosis Differential Diagnoses: The differential diagnosis associated with the presentation includes Lab Data Labs: Lab Results 07/25/23 Range/Units 19:49 Influenza Type A (PCR) NEGATIVE (Negative) Influenza Type B (PCR) NEGATIVE (Negative) RSV RNA Qual (PCR) NEGATIVE (Negative) SARS-CoV-2 RNA (RT-PCR) NEGATIVE (Negative) Independent Interpretation I performed an independent interpretation of an: EKG (Normal sinus rhythm with rate of 74 beats per minute. No ischemic changes) and Plain X-Ray (No acute infiltrates) Radiology Impression Discussion of test interpretation with radiology: I have reviewed the radiologist's reading. (Unremarkable examination of the chest x-ray) Tests considered The following testing was considered but not selected: Considered labs but workup thus far is unremarkable, vital signs are stable, EKG is nonischemic. Low suspicion for sepsis or ACS. Prescription Management I considered prescription management with: Antibiotic Chronic Conditions Patient?s care impacted by: Other (Asthma) Discharge Plan Discharge Clinical Impression: Acute upper respiratory infection Patient Disposition: Home, Self-Care Instructions: Upper Respiratory Infection (ED) Additional Instructions: Use azithromycin as prescribed Take prednisone 40 mg daily for the next 5 days Use benzonatate as needed for cough Hydrate well Continue using her nebulizers Return for new or worsening symptoms Prescriptions: New azithromycin 250 mg tablet See Rx Instructions .ROUTE .COMPLEX Qty: 6 0RF Rx Instructions: For 250 mg dose pack: take 500 mg today (day 1), then 250 mg for 4 days (days 2-5) prednisone 20 mg tablet 40 mg PO DAILY Qty: 10 0RF benzonatate 200 mg capsule 200 mg PO TID PRN (Reason: cough) Qty: 20 0RF No Action albuterol sulfate 2.5 mg /3 mL (0.083 %) solution for nebulization 2.5 mg inhalation BID PRN (Reason: bronchospasm) 30 Days Qty: 75 4RF sucralfate [Carafate] 1 gram tablet 1 g PO BID PRN (Reason: abdominal pain) 30 Days Qty: 60 0RF albuterol sulfate 90 mcg/actuation HFA aerosol inhaler 2 puff inhalation Q4-6H PRN (Reason: shortness of breath or wheezing) Qty: 6.7 0RF sucralfate 1 gram tablet 1 g PO TID Qty: 60 0RF ondansetron 4 mg tablet,disintegrating 4 mg PO Q6-8H PRN (Reason: nausea and vomiting) Qty: 7 0RF metoclopramide HCl 10 mg tablet 10 mg PO Q6H Qty: 20 0RF Rx Instructions: take 30 minutes before each meal and 30 minutes before bedtime montelukast 10 mg tablet 10 mg PO DAILY cetirizine 10 mg tablet 10 mg PO DAILY promethazine 25 mg tablet 25 mg PO TID PRN (Reason: nausea and vomiting) 7 Days Qty: 21 0RF omeprazole 40 mg capsule,delayed release(DR/EC) 40 mg PO DAILY 90 Days Qty: 90 3RF diclofenac sodium 50 mg tablet,delayed release (DR/EC) 50 mg PO TID PRN (Reason: pain) 30 Days Qty: 60 0RF Rx Instructions: Take it with food and full glass of water. Avoid other NSAIDs. lidocaine [Aspercreme (lidocaine)] 4 % adhesive patch,medicated 1 patch topical DAILY PRN (Reason: pain) Qty: 30 6RF methocarbamol 750 mg tablet 750 mg PO BID PRN (Reason: muscle spasm) 30 Days Qty: 60 3RF Stand Alone Forms: Work/School Release
[2023-07-26 00:34] VITALS: BP 123/76; PULSE 72; RESP 18; O2SAT 99
== END 2023-07-26 00:23 | disposition home or self-care (01) ==
PROVIDERS: Emergency Provider Emergency Medicine; PCP Internal Medicine
DX: J06.9 Acute upper respiratory infection, unspecified (principal); R06.02 Shortness of breath; Z79.899 Other long term (current) drug therapy; Z20.822 Contact with and (suspected) exposure to COVID-19; Z20.828 Contact with and (suspected) exposure to other viral communicable diseases
CPT/HCPCS: 0241U; 71046; 93005; 99283; 99285

== ENCOUNTER 2023-11-23 06:01 | Emergency (ER) | payer SELFPAY ==
[2023-11-23 06:14] VITALS: BP 123/77; PULSE 101; RESP 17; TEMP 37.4; O2SAT 98; BMI 40.8
[2023-11-23 06:42] LABS: IDNOW Serial# 08D9AD1C; Strep A Nucleic Acid Negative (Negative)
[2023-11-23 06:44] VITALS: BP 102/66; PULSE 107; RESP 18; TEMP 37.3; O2SAT 99
[2023-11-23 07:05] LABS: Influenza A PCR NEGATIVE (Negative); Influenza B PCR NEGATIVE (Negative); Resp Syncy Virus RNA Qual PCR NEGATIVE (Negative); SARS COV2 PCR INHOUSE POSITIVE (Negative)
--- NOTE | 2023-11-23 07:16 | ED_ITS ---
HPI - URI/Sore Throat General Chief Complaint: Upper Respiratory Symptoms Stated Complaint: fever Time Seen by Provider: 11/23/23 06:41 Source: patient Mode of arrival: ambulatory Limitations: no limitations History of Present Illness HPI Narrative: This is a 28-year-old female history of obesity, chronic pain syndrome, migraine, asthma, glaucoma presenting to the emergency department with complaints of fatigue, malaise, myalgias, fevers T-max 102 degrees F, headache, sore throat x3 days worsening. Patient reports she has been around sick contacts, at work. Has not taken anything today for symptoms. Patient denies chest pain, shortness of breath, nausea, vomiting, abdominal pain, diarrhea, changes in urinary habits or bowel habits, neck pain, vision changes, dizziness and weakness Related Data Home Medications Medication Instructions Recorded Confirmed cetirizine 10 mg tablet 10 mg PO DAILY 02/23/22 03/23/23 montelukast 10 mg tablet 10 mg PO DAILY 02/23/22 03/23/23 Previous Rx's Medication Instructions Recorded albuterol sulfate 2.5 mg/3 mL 2.5 mg (3 mL) inhalation BID PRN 06/05/22 (0.083 %) solution for nebulization bronchospasm 30 days #75 mL albuterol sulfate 90 mcg/actuation 2 puff inhalation Q4-6H PRN 08/21/22 aerosol inhaler shortness of breath or wheezing #6.7 grams omeprazole 40 mg capsule,delayed 40 mg PO DAILY 90 days #90 caps 10/05/22 release promethazine 25 mg tablet 25 mg PO TID PRN nausea and 10/05/22 vomiting 7 days #21 tabs sucralfate 1 gram tablet (Carafate) 1 g PO BID PRN abdominal pain 30 12/07/22 days #60 tabs diclofenac sodium 50 mg 50 mg PO TID PRN pain 30 days #60 04/05/23 tablet,delayed release tabs lidocaine 4 % topical patch 1 patch topical DAILY PRN pain #30 04/05/23 (Aspercreme (lidocaine)) ea methocarbamol 750 mg tablet 750 mg PO BID PRN muscle spasm 30 04/05/23 days #60 tabs ondansetron 4 mg disintegrating 4 mg PO Q6-8H PRN nausea and 04/27/23 tablet vomiting #7 tabs sucralfate 1 gram tablet 1 g PO TID #60 tabs 04/27/23 metoclopramide HCl 10 mg tablet 10 mg PO Q6H #20 tabs 05/14/23 azithromycin 250 mg tablet See Rx Instructions PO .COMPLEX #6 07/25/23 tabs benzonatate 200 mg capsule 200 mg PO TID PRN cough #20 caps 07/25/23 prednisone 20 mg tablet 40 mg (2 x 20 mg) PO DAILY #10 tabs 07/25/23 Allergies Allergy/AdvReac Type Severity Reaction Status Date / Time No Known Allergies Allergy Verified 11/23/23 06:14 Review of Systems Review of Systems: Yes all other systems are reviewed and are negative PMFSH Past Medical History Attestation statement: The following information was validated with the patient. Source: old records reviewed and nursing notes reviewed Medical History Asthma Chronic pain syndrome Lumbar back pain with radiculopathy affecting left lower extremity Migraines Polyarthralgia Skin lesion Surgical History History of laparoscopic cholecystectomy History of tonsillectomy Family History Family History Father Depression Mother No problems noted. Paternal Grandmother Chronic mental illness Maternal Grandmother Diabetes Hypertension Family/Other FH: mental illness Other Mental health disorder Social History Social History Housing: Apartment Alcohol intake: current Alcohol intake frequency: holidays/special occasions on ly Alcohol type: beer and hard liquor Patient Tobacco Use Status: Never used Tobacco e-Cigarette/Vaping Use: Never Used Second Hand Smoke Exposure: No Advance Directives: No Advance Directives Information Provided: No service: No Current occupational status: employed Current occupation: [employer]. Sexual orientation: Lesbian/Walter/Homosexual Gender identity: Female Cognitive needs: No Hearing needs: No Vision needs: Yes (Glasses) Physical Exam Vital Signs: Vital Signs: Last Vital Signs Temp 99.1 F 11/23/23 06:44 Pulse 107 H 11/23/23 06:44 Resp 18 11/23/23 06:44 BP 102/66 11/23/23 06:44 Pulse Ox 99 11/23/23 06:44 O2 Del Method Room Air 11/23/23 06:44 BMI result Body Mass Index 40.8 Low-grade fever and tachycardia likely secondary to acute viral illness Appearance: Alert.? Oriented X3.? No acute distress.? Head: Normocephalic, atraumatic, no step-offs or deformities Eyes: Pupils equal, round and reactive to light.? ENT: Pharynx normal.? Neck: Normal inspection.? Neck supple.? CVS: Normal heart rate and rhythm.? Pulses normal.? Respiratory: No respiratory distress.? Breath sounds normal.? Abdomen: Soft and nontender.? Skin: Skin warm and dry.? Normal skin color.? Normal skin turgor.? Extremities: No lower extremity edema.? No calf ttp. 5/5 strength to bilateral upper and lower extremities Neuro: Oriented X 3.? No motor deficit.? No sensory deficit. CN 2-12 intact Course Reevaluation(s) Reevaluation #1: Patient positive for COVID. Likely reason for the patient's symptoms. Educated patient on diagnosis and treatment plan, answered all question, patient verbalizes understanding. At this time patient will be discharged home, advised to return with new or worsening symptoms. Educated on worrisome signs and symptoms and when to return. At this time I feel comfortable discharge home. Time: 07:19 Medical Decision Making Medical Decision Making [facility] Narrative: 28-year-old female presenting with viral symptoms ongoing for the past 3 days' Physical examination benign This is likely flu versus COVID versus RSV versus other viral illness Unlikely pneumonia, PE, ACS, retropharyngeal abscess, peritonsillar abscess, epiglottitis, threat to airway, intracranial hemorrhage, stroke, posterior stroke, meningitis, encephalitis. Plan- viral test Differential Diagnosis Differential Diagnoses: The differential diagnosis associated with the presentation includes This is likely flu versus COVID versus RSV versus other viral illness Unlikely pneumonia, PE, ACS, retropharyngeal abscess, peritonsillar abscess, epiglottitis, threat to airway, intracranial hemorrhage, stroke, posterior stroke, meningitis, encephalitis. Admission/Observation Consideration of admission/observation: Escalation of care including admission/observation considered No indication Lab Data [facility] Lab Attestation statement: I reviewed the patient's lab results. Positive COVID Labs: Lab Results 11/23/23 Range/Units 06:20 Influenza Type A (PCR) NEGATIVE (Negative) Influenza Type B (PCR) NEGATIVE (Negative) RSV RNA Qual (PCR) NEGATIVE (Negative) SARS-CoV-2 RNA (RT-PCR) POSITIVE A (Negative) S. pyogenes GrpA KIN Negative (Negative) Tests considered The following testing was considered but not selected: Consider chest x-ray however no respiratory symptoms. Prescription Management I considered prescription management with: Other (Ibuprofen and Tylenol) Chronic Conditions Patient?s care impacted by: Other (Chronic pain, asthma, migraines) Discharge Plan Discharge Clinical Impression: COVID-19 Patient Disposition: Home, Self-Care Instructions: COVID-19 (Coronavirus Disease 2019) (ED) Additional Instructions: Take your medications as prescribed. If you were prescribed antibiotics today, it is important that you take your medication to their entirety, do not skip any doses, do not finish them early. Today you tested positive for COVID-19. Take Ibuprofen or Tylenol as needed for fevers or body aches. Quarantine for 5 days and ensure you wear a mask. After 5 days you should wear a mask for 5 days after that. Practice social distancing and good hand hygiene. Drink plenty of fluids. Follow-up with your primary care provider this week. Return to the emergency department with new or worsening symptoms. In case of emergency call 911 You can purchase a pulse oximeter from your local pharmacy or grocery store, and monitor your oxygen saturation if it goes below 94% you should return to the emergency department for further evaluation. Prescriptions: No Action albuterol sulfate 2.5 mg /3 mL (0.083 %) solution for nebulization 2.5 mg inhalation BID PRN (Reason: bronchospasm) 30 Days Qty: 75 4RF sucralfate [Carafate] 1 gram tablet 1 g PO BID PRN (Reason: abdominal pain) 30 Days Qty: 60 0RF albuterol sulfate 90 mcg/actuation HFA aerosol inhaler 2 puff inhalation Q4-6H PRN (Reason: shortness of breath or wheezing) Qty: 6.7 0RF sucralfate 1 gram tablet 1 g PO TID Qty: 60 0RF ondansetron 4 mg tablet,disintegrating 4 mg PO Q6-8H PRN (Reason: nausea and vomiting) Qty: 7 0RF metoclopramide HCl 10 mg tablet 10 mg PO Q6H Qty: 20 0RF Rx Instructions: take 30 minutes before each meal and 30 minutes before bedtime azithromycin 250 mg tablet See Rx Instructions .ROUTE .COMPLEX Qty: 6 0RF Rx Instructions: For 250 mg dose pack: take 500 mg today (day 1), then 250 mg for 4 days (days 2-5) prednisone 20 mg tablet 40 mg PO DAILY Qty: 10 0RF benzonatate 200 mg capsule 200 mg PO TID PRN (Reason: cough) Qty: 20 0RF montelukast 10 mg tablet 10 mg PO DAILY cetirizine 10 mg tablet 10 mg PO DAILY promethazine 25 mg tablet 25 mg PO TID PRN (Reason: nausea and vomiting) 7 Days Qty: 21 0RF omeprazole 40 mg capsule,delayed release(DR/EC) 40 mg PO DAILY 90 Days Qty: 90 3RF diclofenac sodium 50 mg tablet,delayed release (DR/EC) 50 mg PO TID PRN (Reason: pain) 30 Days Qty: 60 0RF Rx Instructions: Take it with food and full glass of water. Avoid other NSAIDs. lidocaine [Aspercreme (lidocaine)] 4 % adhesive patch,medicated 1 patch topical DAILY PRN (Reason: pain) Qty: 30 6RF methocarbamol 750 mg tablet 750 mg PO BID PRN (Reason: muscle spasm) 30 Days Qty: 60 3RF Referrals: Physician,Unknown J [Primary Care Provider] - 2 days Stand Alone Forms: Work/School Release Interventions: ED Discharge Assessment Last Done: 11/23/23 08:05 Discharge Date/Time: 11/23/23 08:06
== END 2023-11-23 08:06 | disposition home or self-care (01) ==
PROVIDERS: Emergency Provider Emergency Medicine Emergency Medical Services
DX: U07.1 COVID-19 (principal); J45.909 Unspecified asthma, uncomplicated
CPT/HCPCS: 0241U; 87651; 99283

== ENCOUNTER 2024-05-21 13:31 | Emergency (ER) | payer SELFPAY ==
--- NOTE | 2024-05-21 13:35 | ED_ITS ---
HPI - General Adult General Chief complaint: Nausea/Vomiting/Diarrhea Stated complaint: nausea, chills Time Seen by Provider: 05/21/24 15:04 Source: patient, family (Mother) and other (Girlfriend) Mode of arrival: ambulatory Limitations: language barrier (German speaking only, healthcare interpreter used) History of Present Illness ED Provider: Dr. Jesus Bailon HPI narrative: 29-year-old female history of asthma, polyarthralgia, migraines, lumbar back pain, chronic pain syndrome, cholecystectomy, tonsillectomy who presents emergency department for evaluation of nausea with no vomiting, hot and cold spells, headaches, shortness of breath, nonproductive cough, myalgias and arthralgias times 2 days. Patient states she was also feeling very fatigued. She states she tried to go to work yesterday but felt ill and had to leave. Patient did not take any medications for symptoms. She felt like her heart was racing, she felt lightheaded and dizzy so she came to the emergency department for evaluation. Related Data Home Medications ?Medication ?Instructions ?Recorded ?Confirmed cetirizine 10 mg tablet 10 mg PO DAILY 02/23/22 03/23/23 montelukast 10 mg tablet 10 mg PO DAILY 02/23/22 03/23/23 Previous Rx's ?Medication ?Instructions ?Recorded albuterol sulfate 2.5 mg/3 mL 2.5 mg (3 mL) inhalation BID PRN 06/05/22 (0.083 %) solution for nebulization bronchospasm 30 days #75 mL albuterol sulfate 90 mcg/actuation 2 puff inhalation Q4-6H PRN 08/21/22 aerosol inhaler shortness of breath or wheezing #6.7 grams omeprazole 40 mg capsule,delayed 40 mg PO DAILY 90 days #90 caps 10/05/22 release promethazine 25 mg tablet 25 mg PO TID PRN nausea and 10/05/22 vomiting 7 days #21 tabs sucralfate 1 gram tablet (Carafate) 1 g PO BID PRN abdominal pain 30 12/07/22 days #60 tabs diclofenac sodium 50 mg 50 mg PO TID PRN pain 30 days #60 04/05/23 tablet,delayed release tabs lidocaine 4 % topical patch 1 patch topical DAILY PRN pain #30 07/13/23 (Aspercreme (lidocaine)) ea methocarbamol 750 mg tablet 750 mg PO BID PRN muscle spasm 30 04/05/23 days #60 tabs ondansetron 4 mg disintegrating 4 mg PO Q6-8H PRN nausea and 04/27/23 tablet vomiting #7 tabs sucralfate 1 gram tablet 1 g PO TID #60 tabs 04/27/23 metoclopramide HCl 10 mg tablet 10 mg PO Q6H #20 tabs 05/14/23 azithromycin 250 mg tablet See Rx Instructions PO .COMPLEX #6 07/25/23 tabs benzonatate 200 mg capsule 200 mg PO TID PRN cough #20 caps 07/25/23 prednisone 20 mg tablet 40 mg (2 x 20 mg) PO DAILY #10 tabs 07/25/23 ondansetron 4 mg disintegrating 4 mg PO Q6-8H PRN nausea and 05/21/24 tablet vomiting #14 tabs Allergies Allergy/AdvReac Type Severity Reaction Status Date / Time No Known Allergies Allergy Verified 05/21/24 13:49 Review of Systems 2 Review of Systems: Yes all other systems are reviewed and are negative [facility] Past Medical History Medical History Asthma Chronic pain syndrome Lumbar back pain with radiculopathy affecting left lower extremity Migraines Polyarthralgia Skin lesion Surgical History History of laparoscopic cholecystectomy History of tonsillectomy Family History Family History Father Depression Mother No problems noted. Paternal Grandmother Chronic mental illness Maternal Grandmother Diabetes Hypertension Family/Other FH: mental illness Other Mental health disorder Social History Social History Housing: Apartment Alcohol intake: current Alcohol intake frequency: holidays/special occasions only Alcohol type: beer and hard liquor Patient Tobacco Use Status: Never used Tobacco e-Cigarette/Vaping Use: Never Used Second Hand Smoke Exposure: No Advance Directives: No Advance Directives Information Provided: No Do you have a plan to hurt others: No Plan service: No Current occupational status: employed Current occupation: [employer]. Sexual orientation: Lesbian/Walter/Homosexual Gender identity: Female Cognitive needs: No Hearing needs: No Vision needs: Yes (Glasses) Physical Exam ED Vital Signs: Vital Signs - 24 hr 05/21/24 13:45 Temperature 98.6 F Pulse Rate 101 H Respiratory Rate 18 Blood Pressure 127/80 Pulse Oximetry 98 Oxygen Delivery Method Room Air BMI result Body Mass Index 40.0 Vital signs revealed an elevated heart rate of 101 otherwise unremarkable Exam: General: Awake, alert in no distress Head: Normocephalic, atraumatic EENT: PERRL, Lids normal, sclera normal, conjunctiva normal, nose normal , ears normal, throat without erythema or exudates Neck: Supple, no adenopathy Lung: breath sounds symmetric, no wheezing, rales or rhonchi Chest: symmetric movement, nontender Heart: regular rate and rhythm, normal S1, S2 no murmurs or rubs Abdomen: soft, non-tender, nondistended, normal bowel sounds Back: no vertebral tenderness, no CVAT Extremities: no deformities, moves all extremities symmetrically Neuro: Awake, alert, oriented, normal speech, cranial nerves intact, moves all extremities symmetrically Psych: Pleasant, cooperative Course Course Course Narrative: This is an RME done by WALLACE Queen: Additional HPI, ROS, PE not included below will be deferred to primary provider. 29 year old F with nausea and chills x 3 days. Patient has had a migraine since Sunday (05/19), pt has been also experiencing tachycardia (rates ~140bpm), diaphoresis, sob, and lightheadedness. Denies sick contacts or recent travel. Plan - labs, EKG Appearance: Alert.? Oriented X3.? No acute cardiopulmonary distress distress.? Head: Normocephalic, atraumatic, no step-offs or deformities Neck: Normal inspection.? Neck supple.? CVS: Pulses normal.? Respiratory: No respiratory distress.? Abdomen: Soft and nontender.? Skin: ? Normal skin color. Extremities: 5/5 strength to bilateral upper and lower extremities Neuro: Oriented X 3.? No motor deficit.? No sensory deficit. Medical Decision Making Medical Decision Making [facility] Narrative: 29-year-old female history of asthma, polyarthralgia, migraines, lumbar back pain, chronic pain syndrome, cholecystectomy, tonsillectomy who presents emergency department for evaluation of nausea with no vomiting, hot and cold spells, headaches, shortness of breath, nonproductive cough, myalgias and arthralgias times 2 days. Patient has had poor appetite with poor fluid in food intake, she is feeling lightheaded, dizzy and fatigued, she was also experiencing palpitations. Vital signs were normal. Physical examination was unremarkable. Differential diagnosis: ?Includes but is not limited to myocardial infarction, myocardial ischemia, myocarditis, pneumonia, bronchitis, viral syndrome, COVID- 19, influenza, RSV Following evaluation was ordered: CBC, CMP, quantitative beta-hCG, magnesium, troponin, EKG, IV insert Patient was initially treated with the following: Normal saline x1 L, Toradol 15 mg even he, Zofran 4 mg IV Course: 15:35 Patient's physical examination was unremarkable, laboratory evaluation was also unremarkable. COVID-19, influenza and RSV were negative. Patient's symptoms are consistent with URI viral syndrome. Given her poor oral intake, myalgias, tachycardia and her persistent nausea, I ordered IV fluid, Toradol 15 mg, Zofran 4 mg IV. Plan is to discharge the patient home with instructions to take Tylenol ibuprofen for fever pain myalgias and I prescribed Zofran 4 mg ODT every 6-8 hours as needed for nausea and vomiting. She was given printed and verbal instructions. She was also given a work note. Admission/Observation Consideration of admission/observation: Escalation of care including admission/observation considered Lab Data MDM Lab Attestation statement: I reviewed the patient's lab results. My interpretation patient's laboratory evaluation as follows: CBC was normal. CMP was normal. Troponin was below detectable limits. Quantitative beta-hCG was negative. COVID-19, influenza and RSV were negative. 05/21/24 13:44 05/21/24 13:44 Labs: Lab Results 05/21/24 Range/Units 13:44 WBC 6.8 (4.8-10.8) X10*3/uL RBC 4.14 L (4.20-5.50) X10*6/uL Hgb 12.7 (12.0-16.0) g/dl Hct 36.7 L (37.0-47.0) % MCV 88.6 (80.0-98.0) fL MCH 30.7 (27.0-33.0) pg MCHC 34.6 (31.0-35.0) g/dl RDW 12.6 (11.0-16.0) % Plt Count 305 (160-400) X10*3/uL MPV 9.0 L (9.4-12.3) fL Immature Gran % (Auto) 0.3 (0.0-0.4) % Neut % (Auto) 66.4 (45-73) % Lymph % (Auto) 26.0 (20-40) % [place]iscoe % (Auto) 5.9 (2-11) % Eos % (Auto) 1.0 (0-4) % Baso % (Auto) 0.4 (0-2) % Lymph # (Auto) 1.8 (1.2-4.9) X10*3/uL [place]iscoe # (Auto) 0.4 (0.1-1.2) X10*3/uL Eos # (Auto) 0.1 (0.0-0.4) X10*3/uL Baso # (Auto) 0.0 (0.0-0.2) X10*3/uL Abs Immat Gran (auto) 0.02 (0.00-0.03) X10*3/uL Absolute Neuts (auto) 4.5 (2.0-8.3) x10*3/uL Absolute Nucleated RBC 0.000 (0.0-0.012) X10*3/uL Nucleated RBC % (auto) 0.0 (0.0-0.2) /100WBC Sodium 139 (135-145) mmol/L Potassium 4.1 (3.3-5.1) mmol/L Chloride 107 (96-108) mmol/L Carbon Dioxide 26 (22-29) mmol/L Anion Gap 10 L (12-20) BUN 11 (9-16) mg/dL Creatinine 0.75 (0.5-1.4) mg/dL Estim Creat Clear Calc 138.4 Estimated GFR > 60 Random Glucose 113 (60-115) mg/dL Calcium 10.0 (8.4-10.2) mg/dL Magnesium 2.0 (1.6-2.6) mg/dL Total Bilirubin 0.3 (0.0-1.0) mg/dL AST 15 (5-31) U/L ALT 14 (0-31) U/L Alkaline Phosphatase 85 (39-117) U/L Troponin I High Sens < 2.7 (<3.5-17.0) ng/L Total Protein 7.3 (6.5-8.0) g/dL Albumin 4.1 (3.5-5.0) g/dL Beta HCG, Quant < 2 mIU/mL Influenza Type A (PCR) NEGATIVE (Negative) Influenza Type B (PCR) NEGATIVE (Negative) RSV RNA Qual (PCR) NEGATIVE (Negative) SARS-CoV-2 RNA (RT-PCR) NEGATIVE (Negative) Independent Interpretation I performed an independent interpretation of an: EKG Independent Historian Clinical information obtained from an independent historian. History obtained from or confirmed by: Parent and Other (Girlfriend) Prescription Management I considered prescription management with: Other (Antiemetics) Chronic Conditions Patient?s care impacted by: Other (Asthma) Discharge Plan Discharge Clinical Impression: Viral syndrome, Nausea, Myalgia URI (upper respiratory infection) Qualifiers: URI type: unspecified viral URI Qualified Code(s): J06.9 - Acute upper respiratory infection, unspecified Patient Disposition: Home, Self-Care Instructions: Upper Respiratory Infection (ED), Viral Syndrome (ED) Additional Instructions: Your blood work was normal. Your 12 EKG and marker of heart damage (troponin) were normal which is reassuring. Your symptoms are consistent with a viral infection/viral syndrome. Take ibuprofen 200 mg pills, 2 pills every 6 hours as needed for pain or fever. Take Tylenol (acetaminophen) 500 mg pills, 2 pills every 6 hours as needed for pain or fever. Take Zofran ODT 4 mg pills, 1 pill dissolved in your mouth every 8 hours as needed for nausea and vomiting. Follow-up with your doctor in 2 days. Please return to the emergency department if your symptoms get worse or if you develop any symptoms that are concerning to you. Prescriptions: New ondansetron 4 mg tablet,disintegrating 4 mg PO Q6-8H PRN (Reason: nausea and vomiting) Qty: 14 0RF No Action albuterol sulfate 2.5 mg /3 mL (0.083 %) solution for nebulization 2.5 mg inhalation BID PRN (Reason: bronchospasm) 30 Days Qty: 75 4RF sucralfate [Carafate] 1 gram tablet 1 g PO BID PRN (Reason: abdominal pain) 30 Days Qty: 60 0RF albuterol sulfate 90 mcg/actuation HFA aerosol inhaler 2 puff inhalation Q4-6H PRN (Reason: shortness of breath or wheezing) Qty: 6.7 0RF sucralfate 1 gram tablet 1 g PO TID Qty: 60 0RF ondansetron 4 mg tablet,disintegrating 4 mg PO Q6-8H PRN (Reason: nausea and vomiting) Qty: 7 0RF metoclopramide HCl 10 mg tablet 10 mg PO Q6H Qty: 20 0RF Rx Instructions: take 30 minutes before each meal and 30 minutes before bedtime azithromycin 250 mg tablet See Rx Instructions .ROUTE .COMPLEX Qty: 6 0RF Rx Instructions: For 250 mg dose pack: take 500 mg today (day 1), then 250 mg for 4 days (days 2-5) prednisone 20 mg tablet 40 mg PO DAILY Qty: 10 0RF benzonatate 200 mg capsule 200 mg PO TID PRN (Reason: cough) Qty: 20 0RF montelukast 10 mg tablet 10 mg PO DAILY cetirizine 10 mg tablet 10 mg PO DAILY promethazine 25 mg tablet 25 mg PO TID PRN (Reason: nausea and vomiting) 7 Days Qty: 21 0RF omeprazole 40 mg capsule,delayed release(DR/EC) 40 mg PO DAILY 90 Days Qty: 90 3RF diclofenac sodium 50 mg tablet,delayed release (DR/EC) 50 mg PO TID PRN (Reason: pain) 30 Days Qty: 60 0RF Rx Instructions: Take it with food and full glass of water. Avoid other NSAIDs. lidocaine [Aspercreme (lidocaine)] 4 % adhesive patch,medicated 1 patch topical DAILY PRN (Reason: pain) Qty: 30 6RF methocarbamol 750 mg tablet 750 mg PO BID PRN (Reason: muscle spasm) 30 Days Qty: 60 3RF Print Language: Luxembourgish
[2024-05-21 13:45] VITALS: BP 127/80; PULSE 101; RESP 18; TEMP 37; O2SAT 98; BMI 40.0
--- NOTE | 2024-05-21 13:45 | ECG_ITS ---
Test Reason : CHEST PAIN/SOB Blood Pressure : / mmHG Vent. Rate : 088 BPM Atrial Rate : 088 BPM P-R Int : 150 ms QRS Dur : 096 ms QT Int : 370 ms P-R-T Axes : 022 042 022 degrees QTc Int : 447 ms Normal sinus rhythm Incomplete right bundle branch block Borderline ECG When compared with ECG of 25-JUL-2023 19:41, Incomplete right bundle branch block is now Present Referred By: Jessy Queen Electronically Signed By:MAYLIN MORENO
[2024-05-21 13:47] LABS: MANUAL DIFF FLAG NO
[2024-05-21 13:50] LABS: Basophils Percent Auto 0.4 % (0-2); Eosinophils Absolute Auto 0.1 X10*3/uL (0.0-0.4); Hematocrit 36.7 % (37.0-47.0); Hemoglobin 12.7 g/dl (12.0-16.0); Imm Gran Abs Auto 0.02 X10*3/uL (0.00-0.03); Imm Gran Pct Auto 0.3 % (0.0-0.4); Lymphocytes Absolute Auto 1.8 X10*3/uL (1.2-4.9); Mean Corpuscular HGB Conc 34.6 g/dl (31.0-35.0); Mean Corpuscular Hemoglobin 30.7 pg (27.0-33.0); Mean Corpuscular Volume 88.6 fL (80.0-98.0); Monocytes Absolute Auto 0.4 X10*3/uL (0.1-1.2); Monocytes Percent Auto 5.9 % (2-11); Neutrophils Absolute Auto 4.5 x10*3/uL (2.0-8.3); Neutrophils Percent Auto 66.4 % (45-73); Platelet Count 305 X10*3/uL (160-400); Red Blood Count 4.14 X10*6/uL (4.20-5.50); Red Cell Distribution Width 12.6 % (11.0-16.0); White Blood Count 6.8 X10*3/uL (4.8-10.8)
[2024-05-21 14:10] LABS: Alanine Aminotransferase 14 U/L (0-31); Albumin Level 4.1 g/dL (3.5-5.0); Alkaline Phosphatase 85 U/L (39-117); Anion Gap 10 (12-20); Aspartate Amino Transferase 15 U/L (5-31); Bilirubin Total 0.3 mg/dL (0.0-1.0); Blood Urea Nitrogen 11 mg/dL (9-16); Carbon Dioxide 26 mmol/L (22-29); Chloride 107 mmol/L (96-108); Creatinine Clr Calc Pharmacy 138.4; Estimated Glomerular Filt Rate > 60; Glucose Random 113 mg/dL (60-115); HCG Quantitative < 2 mIU/mL; Potassium 4.1 mmol/L (3.3-5.1); Sodium 139 mmol/L (135-145); Total Protein 7.3 g/dL (6.5-8.0)
[2024-05-21 14:16] LABS: Troponin-I High Sensitivity < 2.7 ng/L (<3.5-17.0)
[2024-05-21 14:27] LABS: Influenza A PCR NEGATIVE (Negative); Influenza B PCR NEGATIVE (Negative); Resp Syncy Virus RNA Qual PCR NEGATIVE (Negative); SARS COV2 PCR INHOUSE NEGATIVE (Negative)
[2024-05-21] MEDS: ondansetron HCL 4 MG/2 ML VIAL IVPUSH (16:03)
[2024-05-21] MEDS: Ketorolac Tromethamine 15 MG/ML VIAL IVPUSH (16:03)
[2024-05-21] MEDS: 0.9 % Sodium Chloride 1,000 ML 999 ML IV (16:04)
[2024-05-21 17:28] VITALS: BP 110/69; PULSE 66; RESP 14; TEMP 36.6; O2SAT 100
[2024-05-21 17:29] VITALS: BP 110/69; PULSE 66; RESP 14; TEMP 36.6; O2SAT 100
== END 2024-05-21 17:29 | disposition home or self-care (01) ==
PROVIDERS: Physician Assistant; Emergency Provider Emergency Medicine Emergency Medical Services
DX: J06.9 Acute upper respiratory infection, unspecified (principal); R05.9 Cough, unspecified; R00.0 Tachycardia, unspecified; Z03.818 Encounter for observation for suspected exposure to other biological agents ruled out; J45.909 Unspecified asthma, uncomplicated; R06.02 Shortness of breath
CPT/HCPCS: 0241U; 36415; 80053; 83735; 84484; 84702; 85025; 93005; 96374; 96375; 99284; J1885; J2405

== ENCOUNTER 2025-04-16 23:57 | Emergency (ER) | payer SELFPAY ==
[2025-04-17 00:03] VITALS: BP 116/71; PULSE 80; RESP 20; TEMP 36.4; O2SAT 97; BMI 40.3
--- NOTE | 2025-04-17 00:19 | PC.NURSE ---
pt comes from home, ate at [employer] a few hours ago and started to feel sick as soon a she got home, ate fried foods. nausea, diarrhea, denies vomiting. States she has a headache, pain 8/10
[2025-04-17 00:23] VITALS: BP 116/71; PULSE 80; RESP 20; TEMP 36.4; O2SAT 97
--- NOTE | 2025-04-17 00:35 | ED_ITS ---
HPI - Nausea/Vomiting/Diarrhea General Chief complaint: Nausea/Vomiting/Diarrhea Stated complaint: N/V/D Time Seen by Provider: 04/17/25 00:04 History of Present Illness ED Provider: Jermaine Lester MD HPI Narrative: [age] female presents with GI symptoms Related Data Home Medications ?Medication ?Instructions ?Recorded ?Confirmed cetirizine 10 mg tablet 10 mg PO DAILY 02/23/2202/24 montelukast 10 mg tablet 10 mg PO DAILY 02/23/2202/24 Previous Rx's ?Medication ?Instructions ?Recorded albuterol sulfate 2.5 mg/3 mL 2.5 mg (3 mL) inhalation BID PRN 06/05/22 (0.083 %) solution for nebulization bronchospasm 30 da ys #75 mL albuterol sulfate 90 mcg/actuation 2 puff inhalation Q 4-6H PRN 08/21/22 aerosol inhaler shortness of breath or wheez ing #6.7 grams omeprazole 40 mg capsule,delayed 40 mg PO DAILY 90 day s #90 caps 10/05/22 release promethazine 25 mg tablet 25 mg PO TID PRN nausea and 10/05/22 vomiting 7 days #21 tabs sucralfate 1 gram tablet (Carafate) 1 g PO BID PRN abd ominal pain 30 12/07/22 days #60 tabs diclofenac sodium 50 mg 50 mg PO TID PRN pain 30 day s #60 04/05/23 tablet,delayed release tabs lidocaine 4 % topical patch 1 patch topical DAILY PRN pain #30 04/05/23 (Aspercreme (lidocaine)) ea methocarbamol 750 mg tablet 750 mg PO BID PRN muscle s pasm 30 04/05/23 days #60 tabs ondansetron 4 mg disintegrating 4 mg PO Q6-8H PRN naus ea and 04/27/23 tablet vomiting #7 tabs sucralfate 1 gram tablet 1 g PO TID #60 tabs 04/27/23 metoclopramide HCl 10 mg tablet 10 mg PO Q6H #20 tabs 05/14/23 azithromycin 250 mg tablet See Rx Instructions PO .COM PLEX #6 07/25/23 tabs benzonatate 200 mg capsule 200 mg PO TID PRN cough #20 caps 07/25/23 prednisone 20 mg tablet 40 mg (2 x 20 mg) PO DAILY # 10 tabs 07/25/23 ondansetron 4 mg disintegrating 4 mg PO Q6-8H PRN naus ea and 05/21/24 tablet vomiting #14 tabs ondansetron HCl 4 mg tablet 4 mg PO Q8H PRN nausea and 04/17/25 vomiting #6 tabs Allergies Allergy/AdvReac Type Severity Reaction Status Date / Time No Known Allergies Allergy Verified 04/17/25 00:04 [facility]LY [facility] Past Medical History Medical History Asthma Chronic pain syndrome Lumbar back pain with radiculopathy affecting left lower extremity Migraines Polyarthralgia Skin lesion Surgical History History of laparoscopic cholecystectomy History of tonsillectomy Family History Family History Father Depression Mother No problems noted. Paternal Grandmother Chronic mental illness Maternal Grandmother Diabetes Hypertension Family/Other FH: mental illness Other Mental health disorder Social History Social History Housing: Apartment Alcohol intake: current Alcohol intake frequency: holidays/special occasions only Alcohol type: beer and hard liquor Patient Tobacco Use Status: Never used Tobacco e-Cigarette/Vaping Use: Never Used Second Hand Smoke Exposure: No Advance Directives: No Do you have a plan to hurt others: No Plan Patient : No service: No Current occupational status: employed Current occupation: [employer]. Sexual orientation: Lesbian/Walter/Homosexual Gender identity: Female Cognitive needs: No Hearing needs: No Vision needs: Yes (Glasses) Physical Exam 2 Vital Signs: Vital Signs: Last Vital Signs Temp 97.7 F 04/17/25 01:45 Pulse 72 04/17/25 01:45 Resp 16 04/17/25 01:45 BP 108/74 04/17/25 01:45 Pulse Ox 98 04/17/25 01:45 O2 Del Method Room Air 04/17/25 01:45 BMI result Body Mass Index 40.3 Medications Administered Discontinued Medications Generic Name Dose Route Start Last Admin Trade Name Freq PRN Reason Stop Dose Admin Acetaminophen 975 mg 04/17/25 01:06 04/17/25 01:31 Acetaminophen 325 Mg Tablet PO 04/17/25 01:07 975 mg ONCE ONE Administration Ondansetron HCl 4 mg 04/17/25 00:34 04/17/25 00:44 Ondansetron Odt 4 Mg Tab.Andria OWENSINGU 04/17/25 00:35 4 mg ONCE ONE Administration Medical Decision Making Medical Decision Making MDM Narrative: Medical Decision Makin F hx remote lap radha, asthma with abrupt onset onsent n/v/d non blood/non melanotic. Patient has no abdominal tenderness no vomiting here in the ED. she is also here with her friend who is also being evaluated for the same symptoms they both ate at [email or web address] just before arrival here. This is likely food-borne illness/gastroenteritis. There was no concerning abdominal exam findings or vital abnormalities. Symptomatic relief supportive therapy discharged home Preliminary Favored Differential Diagnosis: Food-borne illness gastroenteritis electrolyte derangement dehydration among additional considered etiologies Testing Interpreted Independently: Not Applicable Radiology or Lab testing Results Reviewed: Not Applicable Consults: Not Applicable Independent Historians/External Chart Reviews: Not Applicable Social Determinants of Health Impacting MDM/Planning: Not Applicable Lab Data 04/17/25 00:48 04/17/25 00:48 Labs: Lab Results 04/17/25 Range/Units 00:48 WBC 6.0 (4.8-10.8) X10*3/uL RBC 3.98 L (4.20-5.50) X10*6/uL Hgb 12.1 (12.0-16.0) g/dl Hct 34.8 L (37.0-47.0) % MCV 87.4 (80.0-98.0) fL MCH 30.4 (27.0-33.0) pg MCHC 34.8 (31.0-35.0) g/dl RDW 13.0 (11.0-16.0) % Plt Count 290 (160-400) X10*3/uL MPV 9.1 L (9.4-12.3) fL Immature Gran % (Auto) 0.2 (0.0-0.4) % Neut % (Auto) 50.0 (45-73) % Lymph % (Auto) 38.3 (20-40) % Rhea % (Auto) 7.7 (2-11) % Eos % (Auto) 3.0 (0-4) % Baso % (Auto) 0.8 (0-2) % Lymph # (Auto) 2.3 (1.2-4.9) X10*3/uL Rhea # (Auto) 0.5 (0.1-1.2) X10*3/uL Eos # (Auto) 0.2 (0.0-0.4) X10*3/uL Baso # (Auto) 0.1 (0.0-0.2) X10*3/uL Abs Immat Gran (auto) 0.01 (0.00-0.03) X10*3/uL Absolute Neuts (auto) 3.0 (2.0-8.3) x10*3/uL Absolute Nucleated RBC 0.000 (0.0-0.012) X10*3/uL Nucleated RBC % (auto) 0.0 (0.0-0.2) /100WBC Sodium 144 (135-145) mmol/L Potassium 4.1 (3.3-5.1) mmol/L Chloride 109 H (96-108) mmol/L Carbon Dioxide 26 (22-29) mmol/L Anion Gap 13 (12-20) BUN 14 (9-16) mg/dL Creatinine 0.74 (0.5-1.4) mg/dL Estim Creat Clear Calc 139.5 Estimated GFR > 60 Random Glucose 107 (60-115) mg/dL Calcium 9.2 D (8.4-10.2) mg/dL Total Bilirubin 0.2 (0.0-1.0) mg/dL AST 21 (5-31) U/L ALT 19 (0-31) U/L Alkaline Phosphatase 90 (39-117) U/L Total Protein 7.0 (6.5-8.0) g/dL Albumin 4.2 (3.5-5.0) g/dL Lipase 31 (8-78) U/L Discharge Plan Discharge Clinical Impression: Gastroenteritis Patient Disposition: Home, Self-Care Instructions: Acute Nausea and Vomiting (DC), Acute Diarrhea (ED) Additional Instructions: _ DISCHARGE DIAGNOSES: Nausea/Diarrhea probably food borne illness HISTORY OF PRESENTATION: ?nausea vomiting and diarrhea after eating at [facility] EMERGENCY DEPARTMENT COURSE,TESTS, TREATMENTS: While in the ED today you had reassuring lab work and got tylenol and zofran a nausea medicine. DISCHARGE MEDICATIONS: ?Zofran was prescribed. FOLLOW-UP: ?Call your primary or general physician soon as possible to discuss your symptoms, your ED visit and to discuss follow up plans INSTRUCTIONS ?& RETURN PRECAUTIONS: If any symptoms change first call your primary physician, if it is after-hours your primary doctors office should have a provider control valve mechanic you can speak with. If the symptoms are severe or very concerning to you then call 911 or return to the ED. Jermaine Lester MD Emergency Physician [facility]uelina and david Prescriptions: New ondansetron HCl 4 mg tablet 4 mg PO Q8H PRN (Reason: nausea and vomiting) Qty: 6 0RF No Action albuterol sulfate 2.5 mg /3 mL (0.083 %) solution for nebulization 2.5 mg inhalation BID PRN (Reason: bronchospasm) 30 Days Qty: 75 4RF sucralfate [Carafate] 1 gram tablet 1 g PO BID PRN (Reason: abdominal pain) 30 Days Qty: 60 0RF albuterol sulfate 90 mcg/actuation HFA aerosol inhaler 2 puff inhalation Q4-6H PRN (Reason: shortness of breath or wheezing) Qty: 6.7 0RF sucralfate 1 gram tablet 1 g PO TID Qty: 60 0RF ondansetron 4 mg tablet,disintegrating 4 mg PO Q6-8H PRN (Reason: nausea and vomiting) Qty: 7 0RF metoclopramide HCl 10 mg tablet 10 mg PO Q6H Qty: 20 0RF Rx Instructions: take 30 minutes before each meal and 30 minutes before bedtime azithromycin 250 mg tablet See Rx Instructions .ROUTE .COMPLEX Qty: 6 0RF Rx Instructions: For 250 mg dose pack: take 500 mg today (day 1), then 250 mg for 4 days (days 2-5) prednisone 20 mg tablet 40 mg PO DAILY Qty: 10 0RF benzonatate 200 mg capsule 200 mg PO TID PRN (Reason: cough) Qty: 20 0RF ondansetron 4 mg tablet,disintegrating 4 mg PO Q6-8H PRN (Reason: nausea and vomiting) Qty: 14 0RF montelukast 10 mg tablet 10 mg PO DAILY cetirizine 10 mg tablet 10 mg PO DAILY promethazine 25 mg tablet 25 mg PO TID PRN (Reason: nausea and vomiting) 7 Days Qty: 21 0RF omeprazole 40 mg capsule,delayed release(DR/EC) 40 mg PO DAILY 90 Days Qty: 90 3RF diclofenac sodium 50 mg tablet,delayed release (DR/EC) 50 mg PO TID PRN (Reason: pain) 30 Days Qty: 60 0RF Rx Instructions: Take it with food and full glass of water. Avoid other NSAIDs. lidocaine [Aspercreme (lidocaine)] 4 % adhesive patch,medicated 1 patch topical DAILY PRN (Reason: pain) Qty: 30 6RF methocarbamol 750 mg tablet 750 mg PO BID PRN (Reason: muscle spasm) 30 Days Qty: 60 3RF Interventions: ED Discharge Assessment Last Done: 04/17/25 01:45 Discharge Date/Time: 04/17/25 01:46 Print Language: French
--- NOTE | 2025-04-17 00:45 | PC.NURSE ---
pt medicated per MAR.
[2025-04-17 00:52] LABS: MANUAL DIFF FLAG NO
[2025-04-17 00:53] LABS: Hematocrit 34.8 % (37.0-47.0); Hemoglobin 12.1 g/dl (12.0-16.0); Imm Gran Abs Auto 0.01 X10*3/uL (0.00-0.03); Imm Gran Pct Auto 0.2 % (0.0-0.4); Lymphocytes Absolute Auto 2.3 X10*3/uL (1.2-4.9); Mean Corpuscular HGB Conc 34.8 g/dl (31.0-35.0); Mean Corpuscular Hemoglobin 30.4 pg (27.0-33.0); Mean Corpuscular Volume 87.4 fL (80.0-98.0); NRBC Abs Auto 0.000 X10*3/uL (0.0-0.012); NRBC Pct Auto 0.0 /100WBC (0.0-0.2); Platelet Count 290 X10*3/uL (160-400); Red Blood Count 3.98 X10*6/uL (4.20-5.50); White Blood Count 6.0 X10*3/uL (4.8-10.8)
[2025-04-17 01:06] LABS: Alanine Aminotransferase 19 U/L (0-31); Albumin Level 4.2 g/dL (3.5-5.0); Alkaline Phosphatase 90 U/L (39-117); Anion Gap 13 (12-20); Aspartate Amino Transferase 21 U/L (5-31); Blood Urea Nitrogen 14 mg/dL (9-16); Calcium 9.2 mg/dL (8.4-10.2); Carbon Dioxide 26 mmol/L (22-29); Chloride 109 mmol/L (96-108); Creatinine Clr Calc Pharmacy 139.5; Estimated Glomerular Filt Rate > 60; Lipase 31 U/L (8-78); Potassium 4.1 mmol/L (3.3-5.1); Sodium 144 mmol/L (135-145); Total Protein 7.0 g/dL (6.5-8.0)
[2025-04-17 01:22] VITALS: BP 108/74; PULSE 72; RESP 16; TEMP 36.5; O2SAT 98
[2025-04-17 01:45] VITALS: BP 108/74; PULSE 72; RESP 16; TEMP 36.5; O2SAT 98
== END 2025-04-17 01:46 | disposition home or self-care (01) ==
PROVIDERS: Emergency Provider Emergency Medicine
DX: K52.9 Noninfective gastroenteritis and colitis, unspecified (principal); R11.2 Nausea with vomiting, unspecified; Z79.899 Other long term (current) drug therapy
CPT/HCPCS: 36415; 80053; 83690; 85025; 99283; 99284